=== PATIENT | male | born 1930 | race Caucasian/White ===

== ENCOUNTER 2017-02-23 19:55 | Inpatient (IN) | payer OTHER ==
[~2017-02-23] VITALS: Ht 177.8 cm; Wt 85.9 kg
[~2017-02-23 19:55] MED LIST: ASPEC81 PO; ATOR-54 PO; CALC200T PO; CITA40TA4 PO; DILT120C51 PO; DOCU-94 PO; DRGTP25 TD; ERTA1INJ IV; FINA5TAB PO; FRRS300 PO; FRS/40 PO; LCTX PO; MAGN400T5 PO; NUTR-7 PO; OMEP40CA41 PO; POTA20TA13 PO; WARF7.5T PO
[2017-02-23 23:18] VITALS: BP 115/61; PULSE 73; TEMP 37.2; O2SAT 91; Ht 177.8 cm; Wt 85.9 kg
[2017-02-23] MEDS ORDERED: MAGNESIUM HYDROXIDE SUSP 30 ML UDC PO PRN (23:45)
[2017-02-23] MEDS ORDERED: ACETAMINOPHEN 325 MG TAB PO PRN (23:45)
[2017-02-23] MEDS ORDERED: NITROGLYCERIN 0.4 MG SL PER TAB CHARGE SL PRN (23:45)
[2017-02-23] MEDS ORDERED: ALUMINUM/MAGNESIUM/SIMETH (MAALOX MAX) 30 ML UDC PO PRN (23:45)
[2017-02-23] MEDS ORDERED: POLYETHYLENE (MIRALAX) 17 GM PACK PO PRN (23:45)
[2017-02-24] VITALS (10 sets, daily range): BP systolic 115–152; BP diastolic 63–74; PULSE 64–84; TEMP 36.7–37.2; O2SAT 93–98
[2017-02-24 00:17] LABS: BASO % 0.2 %; BASO ABS # 0.01 K/uL (0-0.2); EOS % 1.9 %; EOS ABS # 0.11 K/uL (0-0.5); HEMATOCRIT 28.2 % (42-52); IG# 0.01 K/uL (0.00-0.02); LYMPH % 15.6 %; LYMPH ABS # 0.89 K/uL (1.2-3.4); MEAN CELL VOLUME 86.5 fL (80-100); MEAN CORPUSCULAR HEMOGLOBIN 27.6 pg (25-34); MEAN CORPUSCULAR HGB CONC 31.9 g/dl (32-36); MEAN PLATELET VOLUME 11.1 fL (7.4-10.4); MONO % 8.4 %; MONO ABS # 0.48 K/uL (0.11-0.59); NEUT % 73.7 %; NEUT ABS # 4.19 K/uL (1.4-6.5); PLATELET COUNT 200 K/uL (130-400); RED CELL DISTRIBUTION WIDTH CV 16.7 % (11.5-14.5); RED CELL DISTRIBUTION WIDTH SD 52.6 fL (36.4-46.3); WHITE BLOOD COUNT 5.69 K/uL (4.8-10.8)
[2017-02-24 00:28] LABS: INR 1.9 (0.9-1.1)
[2017-02-24 00:43] LABS: CALCIUM 8.5 mg/dl (8.5-10.1); CREATININE 1.31 mg/dl (0.60-1.40); POTASSIUM 4.1 mmol/L (3.5-5.1)
[2017-02-24] MEDS: SODIUM CHLORIDE 0.9% 1000ML 1,000 ML IV SCH ×2 (00:56→14:16)
[2017-02-24] MEDS: CHECK FENTANYL PATCH PLACEMENT SCH ×3 (00:57→16:08)
--- NOTE | 2017-02-24 02:35 | History and Physical ---
History & Physical Date & Time of Service: Feb 24, 2017 at 02:34 Chief Complaint: Ams, Elevated Inr, Gi Bleed Primary Care Physician: Hakan Gee D.O. History of Present Illness This is an 86 y/o M w/ h/o prostate and bladder ca, htn, afib s/p pacemaker, bph , ckd 3, who presents as a transfer from [facility]. History is somewhat unclear from patient. History obtained from daughter over the phone. She reports that he was recently discharged from [facility] with multi-drug resistant e.coli UTI on IV Ertapenem and sent to [facility] for acute rehab. A few days prior to discharge from the rehab facility, his repeat urine culture grew bacteria (unknown?) again and he was discharged on what she thinks is ciprofloxacin. He also had a fall while there, that was reportedly not evaluated. He complains of left leg pain. She notes that after he got home, he continued to be weak and his speech was slurred. This morning his brother checked on him and he seemed confused. She too visited him later and noted that he was intermittently confused. She reports that her dad is usually very sharp. She took him to [place] where they noted his INR to be 7. He did report melena at [place]. He was given Vitamin K and 1 unit of FFP and transferred to [facility]. Here he reports having dark stools and diarrhea. He recently underwent cystoscopy with fulguration of 2 small areas concerning for recurrent bladder cancer on 01/21/[address] Daniel Muhammad. Past Medical/Surgical History Medical Problems: (1) Atrial fibrillation Status: Chronic (2) CAD (coronary artery disease) Status: Chronic (3) Chronic back pain Status: Chronic (4) Compression fracture of spine Status: Chronic (5) History of bladder cancer Status: Chronic (6) History of prostate cancer Status: Chronic (7) Hypertension Status: Chronic Surgical Problems: (1) History of hip replacement, total Status: Chronic (2) Status post coronary artery stent placement Status: Chronic (3) Stented coronary artery Status: Chronic Family History Cancer Social History Smoking Status: Former Smoker Drug Use: none Marital Status: Occupational Status: retired Immunizations History of Influenza Vaccine: Yes Influenza Vaccine Date: Jan 11, 2015 History of Tetanus Vaccine?: Unknown History of Pneumococcal: Unknown History of Hepatitis B Vaccine: Unknown Multi-Drug Resistant Organisms History of MDRO: No Allergies Coded Allergies: No Known Allergies (Verified , 04/21/02) Home Medications Scheduled Aspirin (Aspirin EC Low Dose), 81 MG PO DAILY Atorvastatin (Lipitor), 20 MG PO HS Calcium Carbonate-Vitamin D (Oscal 500/200 D-3), 1 TAB PO BID Citalopram (Citalopram Hydrobromide), 40 MG PO DAILY Diltiazem Hcl Coated Beads (Cardizem Cd), 120 MG PO DAILY Docusate Sodium (Colace), 100 MG PO HS Ertapenem Sodium (Invanz), 1 GM IV DAILY Fentanyl (Fentanyl), 25 MCG TD Q3D Ferrous Sulfate (Ferrous Sulfate), 325 MG PO DAILY Finasteride (Proscar), 5 MG PO DAILY Furosemide (Lasix), 40 MG PO QAM Lactobacillus Acidophilus (Lactinex), 3 TAB PO TID Magnesium Oxide (Mag-Ox), 400 MG PO BID Nutritional Supplements (Boost), 1 CAN PO HS Omeprazole (Prilosec), 40 MG PO DAILY Potassium Chloride Microencaps (Potassium Chloride Er), 20 MEQ PO DAILY Warfarin Sodium (Coumadin), 7.5 MG PO 4XWK Warfarin Sodium (Coumadin), 3.75 MG PO 3XWK Review of Systems Constitutional: No fever, No chills Respiratory: No cough, No shortness of breath, No dyspnea on exertion Cardiovascular: No chest pain Abdomen: + diarrhea, + GI bleeding, No pain, No nausea Genitourinary - Male: + urinary frequency, + urinary hesitancy, + urinary retention Physical Exam Vital Signs Date Time Temp Pulse Resp B/P (MAP) Pulse Ox O2 Delivery O2 Flow Rate FiO2 02/23/17 23:59 Nasal Cannula 4.0 02/23/17 23:18 37.2 73 18 115/61 91 Nasal Cannula 4.0 General Appearance: no apparent distress Eyes: PERRL, EOMI ENT: hearing grossly normal Neck: supple, no adenopathy Respiratory/Chest: lungs clear, normal breath sounds, no respiratory distress, no accessory muscle use Cardiovascular: regular rate, rhythm, no edema Abdomen/GI: normal bowel sounds, non tender, soft Extremities/Musculoskelatal: no calf tenderness, no pedal edema Neurologic/Psych: alert, normal mood/affect, oriented x 3 Diagnostics Laboratory Results Results Past 24 Hours Test 02/24/17 00:05 Range/Units White Blood Count 5.69 4.8-10.8 K/uL Red Blood Count 3.26 4.7-6.1 M/uL Hemoglobin 9.0 14.0-18.0 g/dL Hematocrit 28.2 42-52 % Mean Corpuscular Volume 86.5 80-100 fL Mean Corpuscular Hemoglobin 27.6 25-34 pg Mean Corpuscular Hemoglobin Concent 31.9 32-36 g/dl Platelet Count 200 130-400 K/uL Mean Platelet Volume 11.1 7.4-10.4 fL Neutrophils (%) (Auto) 73.7 % Lymphocytes (%) (Auto) 15.6 % Monocytes (%) (Auto) 8.4 % Eosinophils (%) (Auto) 1.9 % Basophils (%) (Auto) 0.2 % Neutrophils # (Auto) 4.19 1.4-6.5 K/uL Lymphocytes # (Auto) 0.89 1.2-3.4 K/uL Monocytes # (Auto) 0.48 0.11-0.59 K/uL Eosinophils # (Auto) 0.11 0-0.5 K/uL Basophils # (Auto) 0.01 0-0.2 K/uL RDW Standard Deviation 52.6 36.4-46.3 fL RDW Coefficient of Variation 16.7 11.5-14.5 % Immature Granulocyte % (Auto) 0.2 % Immature Granulocyte # (Auto) 0.01 0.00-0.02 K/uL Prothrombin Time 19.7 9.0-12.0 SECONDS Prothromb Time International Ratio 1.9 0.9-1.1 Sodium Level 139 136-145 mmol/L Potassium Level 4.1 3.5-5.1 mmol/L Chloride Level 107 98-107 mmol/L Carbon Dioxide Level 29 21-32 mmol/L Anion Gap 3.0 3-11 mmol/L Blood Urea Nitrogen 26 7-18 mg/dl Creatinine 1.31 0.60-1.40 mg/dl Est Creatinine Clear Calc Drug Dose 40.2 ml/min Estimated GFR () 55.9 Estimated GFR (Non- 48.3 BUN/Creatinine Ratio 19.6 10-20 Random Glucose 93 70-99 mg/dl Calcium Level 8.5 8.5-10.1 mg/dl Impression Assessment and Plan Altered Mental status 2/2 pain? vs. CVA? vs. infection? Head CT at [place] r/o acute hemorrhage or infarct Unable to do MRI due to pacemaker. u/a, urine culture pending, consider ID consult if persistent/recurrent UTI oriented x 3 Supratherapeutic INR/GI bleed Given Vitamin K and FFP at [place] INR currently 1.9 Hemoccult GI Consult NPO Serial H/H- hgb stable from [place] protonix 40 mg BID Hold Coumadin Left Leg pain 2/2 Fall Left hip Xray done at [place] without fracture Will do a Femur Xray pain control DVT less likely given initial INR of 7 CKD stage 3 - at baseline h/o prostate ca/bladder ca- noted consider urology consult- per [place], patient was transferred for Urology Bph - continue finasteride Cad/HTN aspirin, lipitor, lasix Afib s/p Pacemaker - NSR Chronic Pain Fentanyl patch Citalopram Dvt proph: chemical means contraindicated Code: DNR Resident Physician Supervision Note: I was present with Dr. Naylor during the history and exam. I discussed the case with the resident and agree with the findings and plan as documented in the note. 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 Y/N: Yes Risk Level: Moderate Given or contraindicated: Treatment not indicated
[2017-02-24 06:47] LABS: HEMATOCRIT 27.6 % (42-52); HEMOGLOBIN 8.7 g/dL (14.0-18.0)
--- NOTE | 2017-02-24 07:55 | DIAGNOSTIC IMAGING REPORT ---
L FEMUR 2 VIEWS ROUTINE CLINICAL HISTORY: 86 years-old Male presenting with fall, left leg pain. TECHNIQUE: Frontal and lateral views of the left femur were obtained. COMPARISON: Correlation made to CT of the abdomen and pelvis from 02/02/2017. FINDINGS: The left hip joint is congruent. Knee joint grossly congruent. No gross evidence of a left knee joint effusion. No advanced degenerative change of the left hip. The joint spaces preserved. Visualized portion of the bony pelvis within normal limits. Atherosclerosis noted. Prominent enthesophyte at the insertion of the quadriceps tendon. Osteopenia suspected. IMPRESSION: No acute osseous injury of the left femur allowing for osteopenia. Electronically signed by: Chapin Deleon M.D. 02/24/2017 7:53 AM Dictated Date/Time: 02/24/2017 7:52 AM
[2017-02-24] MEDS: DILTIAZEM HCL 120 MG CAPCR PO SCH (08:21)
[2017-02-24] MEDS: PANTOprazole INJ 40 MG in SYRINGE 0 ML IV SCH ×2 (08:21→19:57)
[2017-02-24] MEDS: FUROSEMIDE 40 MG TAB PO SCH (08:22)
[2017-02-24] MEDS: POTASSIUM CHLORIDE 20 MEQ TABCR PO SCH (08:22)
[2017-02-24] MEDS: FINASTERIDE 5 MG TAB PO SCH (08:23)
[2017-02-24] MEDS: CITALOPRAM 40 MG TAB PO SCH (08:23)
[2017-02-24] MEDS: MAGNESIUM OXIDE 400 MG TAB PO SCH ×2 (08:23→19:59)
[2017-02-24] MEDS: LACTOBACILLUS ACIDOPHILUS (FLORANEX) TAB PO SCH ×3 (08:23→20:00)
[2017-02-24] MEDS: FENTANYL PATCH REMOVE & WASTE SCH (08:25)
[2017-02-24] MEDS: FENTANYL 25 MCG/HR TDSY TD SCH (08:26)
--- NOTE | 2017-02-24 10:10 | Clinical Documentation Query ---
CLINICAL DOCUMENTATION QUERY 86 y/o M with weakness, slurred speech, & melena. Patient is noted to have Melena, INR of 7.0, and H/H of 8.7/27.6. In your clinical opinion is this patient being managed for: ( ) GI bleed due to Warfarin therapy treated with reversal of INR and GI consult. ( ) Not Agree ( ) Other explanation of clinical findings (Please Explain) ( ) Unable to determine (Please Define) ( ) Need to Discuss The medical record reflects the following clinical findings, treatment, and risk factors. Clinical Indicators: Reported INR of 7.0, melena, Hgb 8.7, Hct 27.6 Treatment: Vitamin K and 1 unit FFP, telemetry, daily CBC, PT/INR, GI consult, IVF's, Risk Factors: Warfarin therapy. Please clarify and document your clinical opinion in the progress notes and discharge summary. Terms such as "probable", "suspected", "likely", "questionable", "possible", or "still to be ruled out" are acceptable. IF IN AGREEMENT, YOU MUST DOCUMENT ABOVE DIAGNOSTIC STATEMENT IN DAILY PROGRESS NOTES AND DISCHARGE SUMMARY. This document is not part of the patient's record. Thank You, Alireza Gordillo, SEA [phone]
[2017-02-24 12:04] LABS: HEMATOCRIT 28.9 % (42-52); HEMOGLOBIN 9.1 g/dL (14.0-18.0)
--- NOTE | 2017-02-24 12:15 | Clinical Documentation Query ---
CLINICAL DOCUMENTATION QUERY 86 y/o M with weakness, slurred speech, & melena. Patient is noted to have Melena, INR of 7.0, and H/H of 8.7/27.6. In your clinical opinion is this patient being managed for: (x ) GI bleed due to Warfarin therapy treated with reversal of INR and GI consult. ( ) Not Agree ( ) Other explanation of clinical findings (Please Explain) ( ) Unable to determine (Please Define) ( ) Need to Discuss The medical record reflects the following clinical findings, treatment, and risk factors. Clinical Indicators: Reported INR of 7.0, melena, Hgb 8.7, Hct 27.6 Treatment: Vitamin K and 1 unit FFP, telemetry, daily CBC, PT/INR, GI consult, IVF's, Risk Factors: Warfarin therapy. Please clarify and document your clinical opinion in the progress notes and discharge summary. Terms such as "probable", "suspected", "likely", "questionable", "possible", or "still to be ruled out" are acceptable. IF IN AGREEMENT, YOU MUST DOCUMENT ABOVE DIAGNOSTIC STATEMENT IN DAILY PROGRESS NOTES AND DISCHARGE SUMMARY. This document is not part of the patient's record. Thank You, Alireza Gordillo, SEA [phone]
--- NOTE | 2017-02-24 14:47 | Family Medicine Progress Note ---
Progress Note Date of Service Feb 24, 2017. Subjective Pt evaluation today including: conversation w/ patient, conversation w/ family , physical exam, chart review, lab review, review of inpatient medication list Pain: Left leg pain reported PO Intake: NPO Voiding: no voiding problems Mr. Rodriguez reports he feels well today. He denies chest pain, SOB, abdominal pain, nausea or vomiting. He does report pain in his left leg, but states that he has full mobility with his leg. His family members state that he is not as sharp as he normally is and they are concerned. Constitutional: No fever, No chills Respiratory: No cough, No sputum, No wheezing, No shortness of breath Cardiovascular: No chest pain, No orthopnea, No PND, No edema Abdomen: No pain, No nausea, No vomiting, No diarrhea Musculoskeletal: + problem reported (left leg pain) All Other Systems: Reviewed and Negative Medications Current Inpatient Medications Medications (Trade) Dose Ordered Sig/Shin Route Start Time Stop Time Status Last Admin Dose Admin Sodium Chloride 1,000 ml @ 75 mls/hr [id number] IV 02/24/17 00:15 03/26/17 00:14 02/24/17 14:16 75 MLS/HR Acetaminophen (Tylenol Tab) 650 mg Q4H PRN PO 02/23/17 23:45 03/25/17 23:44 Al Hydrox/Mg Hydrox/Simethicone (Maalox Max Susp) 15 ml Q4H PRN PO 02/23/17 23:45 03/25/17 23:44 Magnesium Hydroxide (Milk Of Magnesia Susp) 30 ml Q12H PRN PO 02/23/17 23:45 03/25/17 23:44 Ondansetron HCl (Zofran Inj) 4 mg Q6H PRN IV 02/23/17 23:45 03/25/17 23:44 Nitroglycerin (Nitrostat Tab) 0.4 mg UD PRN SL 02/23/17 23:45 03/25/17 23:44 Polyethylene (Miralax Powder Packet) 17 gm DAILY PRN PO 02/23/17 23:45 03/25/17 23:44 Pantoprazole Sodium 40 mg/ Syringe 10 ml @ 5 mls/min DAILY@ IV 02/24/17 09:00 03/26/17 08:59 02/24/17 08:21 5 MLS/MIN Atorvastatin Calcium (Lipitor Tab) 20 mg HS PO 02/24/17 21:00 03/26/17 20:59 Citalopram Hydrobromide (celeXA TAB) 40 mg DAILY PO 02/24/17 09:00 03/26/17 08:59 02/24/17 08:23 40 MG Diltiazem HCl (Cardizem Cd Cap) 120 mg DAILY PO 02/24/17 09:00 03/26/17 08:59 02/24/17 08:21 120 MG Docusate Sodium (coLACE CAP) 100 mg HS PO 02/24/17 21:00 03/26/17 20:59 Fentanyl (Duragesic Patch) 25 mcg Q3D@0900 TD 02/24/17 09:00 03/10/17 08:59 02/24/17 08:26 25 MCG Finasteride (Proscar Tab) 5 mg DAILY PO 02/24/17 09:00 03/26/17 08:59 02/24/17 08:23 5 MG Furosemide (Lasix Tab) 40 mg QAM PO 02/24/17 09:00 03/26/17 08:59 02/24/17 08:22 40 MG Lactobacillus Acidophilus (Floranex Tab) 3 tab TID PO 02/24/17 09:00 03/26/17 08:59 02/24/17 14:16 3 TAB Magnesium Oxide (Mag-Ox Tab) 400 mg BID PO 02/24/17 09:00 03/26/17 08:59 02/24/17 08:23 400 MG Potassium Chloride (Klor-Con Tab) 20 meq DAILY PO 02/24/17 09:00 03/26/17 08:59 02/24/17 08:22 20 MEQ Miscellaneous (Fentanyl Patch Remove & Waste) 1 ea Q3D@0859 N/A 02/24/17 08:59 03/26/17 08:58 02/24/17 08:25 1 EA Miscellaneous Information (Check Fentanyl Patch Placement) 1 ea QS N/A 02/24/17 00:45 03/26/17 00:44 02/24/17 08:21 1 EA Enteral Nutritional Formula (Boost) 1 can HS PO 02/24/17 21:00 03/26/17 20:59 Objective Vital Signs Date Time Temp Pulse Resp B/P (MAP) Pulse Ox O2 Delivery O2 Flow Rate FiO2 02/24/17 12:00 95 Nasal Cannula 2.0 02/24/17 11:10 37.2 84 16 122/65 (84) 97 02/24/17 08:08 37.0 74 18 144/70 (94) 98 02/24/17 08:00 96 Nasal Cannula 4.0 02/24/17 04:00 Nasal Cannula 4.0 02/24/17 03:10 36.7 68 18 115/63 (80) 96 Nasal Cannula 3.0 02/23/17 23:59 Nasal Cannula 4.0 02/23/17 23:18 37.2 73 18 115/61 91 Nasal Cannula 4.0 Physical Exam General Appearance: WD/WN, no apparent distress Respiratory/Chest: chest non-tender, lungs clear, normal breath sounds, no respiratory distress, no accessory muscle use Cardiovascular: regular rate, rhythm, no edema, no gallop, no JVD, no murmur Abdomen: normal bowel sounds, non tender, soft, no organomegaly, no pulsatile mass Laboratory Results Last 24 Hours Test 02/24/17 00:05 02/24/17 05:29 02/24/17 06:11 02/24/17 11:51 White Blood Count 5.69 K/uL Red Blood Count 3.26 M/uL Hemoglobin 9.0 g/dL 8.7 g/dL 9.1 g/dL Hematocrit 28.2 % 27.6 % 28.9 % Mean Corpuscular Volume 86.5 fL Mean Corpuscular Hemoglobin 27.6 pg Mean Corpuscular Hemoglobin Concent 31.9 g/dl Platelet Count 200 K/uL Mean Platelet Volume 11.1 fL Neutrophils (%) (Auto) 73.7 % Lymphocytes (%) (Auto) 15.6 % Monocytes (%) (Auto) 8.4 % Eosinophils (%) (Auto) 1.9 % Basophils (%) (Auto) 0.2 % Neutrophils # (Auto) 4.19 K/uL Lymphocytes # (Auto) 0.89 K/uL Monocytes # (Auto) 0.48 K/uL Eosinophils # (Auto) 0.11 K/uL Basophils # (Auto) 0.01 K/uL RDW Standard Deviation 52.6 fL RDW Coefficient of Variation 16.7 % Immature Granulocyte % (Auto) 0.2 % Immature Granulocyte # (Auto) 0.01 K/uL Prothrombin Time 19.7 SECONDS Prothromb Time International Ratio 1.9 Sodium Level 139 mmol/L Potassium Level 4.1 mmol/L Chloride Level 107 mmol/L Carbon Dioxide Level 29 mmol/L Anion Gap 3.0 mmol/L Blood Urea Nitrogen 26 mg/dl Creatinine 1.31 mg/dl Est Creatinine Clear Calc Drug Dose 40.2 ml/min Estimated GFR () 55.9 Estimated GFR (Non- 48.3 BUN/Creatinine Ratio 19.6 Random Glucose 93 mg/dl Calcium Level 8.5 mg/dl Urine Color YELLOW Urine Appearance CLEAR Urine pH 5.0 Urine Specific [place] 1.022 Urine Protein NEG Urine Glucose (UA) NEG Urine Ketones NEG Urine Occult Blood TRACE Urine Nitrite NEG Urine Bilirubin NEG Urine Urobilinogen NEG Urine Leukocyte Esterase MODERATE Urine WBC (Auto) 10-30 /hpf Urine RBC (Auto) 0-4 /hpf Urine Hyaline Casts (Auto) 1-5 /lpf Urine Epithelial Cells (Auto) 10-20 /lpf Urine Bacteria (Auto) NEG Assessment and Plan Mr. Rodriguez is an 86 year old male with a history of bladder and prostate cancer , atrial fibrillation, CAD s/p stent placement, and hypertension who presented to [facility] as a transfer from [place] with weakness, AMS, INR of 7 and melena. Altered Mental Status secondary to pain vs. infection - Head CT at [place] ruled out acute hemorrhage or infarct - Unable to do MRI due to pacemaker. - urinalysis positive, awaiting urine culture results Supratherapeutic INR/GI bleed - Given Vitamin K and FFP at [place] as his INR was 7 there - possible interaction between warfarin and cipro - INR currently 1.9 - GI consulted - Hgb currently stable at 9.1 - continue protonix 40 mg BID - Hold Coumadin Left Leg pain secondary to Fall - Left hip Xray done at [place] without fracture - Femur xray negative - pain control, apply ice to area New Oxygen Demand - patient not on oxygen at home - on 2L of oxygen via nasal cannula here - CXR to rule out new infection CKD stage 3 - at baseline - creatinine 1.31 H/o prostate ca/bladder ca - stable BPH - continue finasteride Cad/HTN - aspirin, lipitor, lasix Afib s/p Pacemaker - NSR - hold warfarin Chronic Pain - Fentanyl patch - Citalopram Code: DNR DVT Prophylaxis: chemical means contraindicated Disposition: remains on telemetry Resident Physician Supervision Note: I interviewed and examined the patient. Discussed with Dr. Laina Cabezas and agree with findings and plan as documented in the note. Any exceptions or clarifications are listed here: None this pt is doing well accompanied by family at the bedside, pt was transferred in with coagulopathy secondary to coumadin( which he takes for afib) possibly worsened by use of antibiotics. he has only modest acute blood loss anemia. vitals are stable car is regular] abd is soft and non tender Coumadin coagulopathy reversed with vitamin K, acute blood loss anemia. gi bleed due to warfarin therapy with reversal of INR and IG consult. will follow GI evaluation and continue to hold coumadin. Documented By: Ulisses [place] Resident Tracking Resident Involvement: Resident Care Provided Care Provided: Adult Hospital Medicine
[2017-02-24 18:27] LABS: HEMATOCRIT 29.6 % (42-52); HEMOGLOBIN 9.2 g/dL (14.0-18.0)
--- NOTE | 2017-02-24 19:18 | DIAGNOSTIC IMAGING REPORT ---
CHEST ONE VIEW PORTABLE CLINICAL HISTORY: new oxygen demand, rule out infection COMPARISON STUDY: Chest radiograph February 04, 2017. FINDINGS: A dual lead left subclavian pacemaker is in place. Lung volumes are diminished. No pneumothorax or pleural effusion is identified. Cardiomegaly is unchanged. No consolidation is identified. Mild bibasilar opacities favor atelectasis. IMPRESSION: 1. Mild bibasilar opacities which favor atelectasis. 2. Stable cardiomegaly without evidence for overt pulmonary edema. Electronically signed by: Enyd Garcia M.D. 02/24/2017 7:17 PM Dictated Date/Time: 02/24/2017 7:15 PM
[2017-02-24] MEDS: DOCUSATE SODIUM 100 MG CAP PO SCH (19:58)
[2017-02-24] MEDS: ATORVASTATIN 20 MG TAB PO SCH (19:59)
[2017-02-24] MEDS: BOOST VANILLA PO SCH (19:59)
[2017-02-24] MEDS ORDERED: BOOST VANILLA PO SCH (21:00)
--- NOTE | 2017-02-24 22:05 | GASTROINTESTINAL CONSULTATION ---
DATE OF CONSULTATION: 02/24/2017 CHIEF COMPLAINT: Anemia, melena, supratherapeutic INR. HISTORY OF PRESENT ILLNESS: Mr. Angulo is an 86-year-old male transferred from [facility]. The patient was recently discharged from [facility] with multidrug resistant E. coli and UTI on IV ertapenem. He also had repeat urine cultures that grew out unknown bacteria and was possibly placed on ciprofloxacin. The patient has left leg pain from a fall. There were issues of slurred speech. On the day of admission yesterday, the patient seemed confused and what represented a change in the patient's mental status. In [facility], the INR was markedly elevated at 7. The patient recently underwent cystoscopy with fulguration of lesions with recurrent bladder cancer and the patient also has a history of prostate cancer for which he reportedly received radiation therapy. At [place], he was given vitamin K and FFP and transferred to [facility]. The patient also has dark stools and diarrhea. Currently, the patient is awake, alert and oriented x3. He reported that he has had a colonoscopy in the past, although that may have been several years ago but had an upper endoscopy about a year or so ago in [place]. PAST MEDICAL HISTORY: Includes atrial fibrillation, coronary artery disease, chronic back pain, compression fractures, bladder cancer, prostate cancer, hypertension. PAST SURGICAL HISTORY: The patient had hip replacement and coronary artery stent placement. FAMILY HISTORY: Significant for cancer. SOCIAL HISTORY: The patient smoked in the past but no longer does so. He is retired, . Does not use alcoholic beverages. ALLERGIES: He has no known drug allergies. HOME MEDICATIONS: Include aspirin, atorvastatin, calcium, citalopram, diltiazem, docusate, ertapenem, fentanyl, ferrous sulfate, finasteride, Lasix, Lactinex, magnesium oxide, omeprazole, warfarin. REVIEW OF SYSTEMS: Otherwise noncontributory based on 13-point exam except for mentioned above. The patient reported that his stools were dark although not specifically melena (tarry, sticky stools). There was no bright red blood per rectum. The patient had no abdominal pain, nausea, vomiting, hematemesis or coffee-ground emesis and has not been using any NSAIDs to his understanding. PHYSICAL EXAMINATION: GENERAL: The patient is awake, alert and oriented x3, resting comfortably in bed. VITAL SIGNS: Currently show blood pressure 152/74, respirations 16, heart rate 70, 98% on room air, temperature 36.7. HEART: Normal S1, S2, irregular rhythm. LUNGS: Overall clear to auscultation without wheezes or rhonchi. HEENT: The patient's sclerae are anicteric, conjunctivae moist. No cervical or supraclavicular adenopathy. I did not appreciate thyromegaly. EXTREMITIES: Show overall normal range of motion, although the patient reports discomfort in his left leg without weightbearing. Otherwise without clubbing, cyanosis or edema. ABDOMEN: Soft, flat, nontender, nondistended with positive bowel sounds. No rebound or guarding. I do not appreciate abdominal bruits or masses. No evidence of ascites or shifting dullness. There is no rebound or guarding. RECTAL: Deferred. LABORATORY STUDIES: On admission, white count 5.6. Hemoglobin 9 at midnight; at 1800 hours this evening, it is 9.2. The patient received 2 units of packed red blood cells today. His INR was 1.9. Serum chemistry, BUN and creatinine were 26 and 1.3, potassium 4.1, calcium 8.5. Urinalysis showed moderate leukocyte esterase, trace occult blood, 10-30 white blood cells, although they were epithelial cells. INR was 1.9. Imaging showed stable cardiomegaly without pulmonary edema and atelectasis. IMPRESSION AND PLAN: The patient with anemia, reports of dark appearing stools with a supratherapeutic INR, without abdominal pain, knowledge of taking NSAIDs or prior peptic ulcer disease. BUN was slightly elevated on admission, although it is unclear if this would justify his significant dark stool and his hemoglobin. Sources may reflect upper small-bowel or very proximal colon. I made the following recommendations. Given that there have been no reports of melena or bright red blood per rectum and his hemoglobin is stable and INR is near normal, I believe it is reasonable for the patient to have clear or full liquids up through midnight but n.p.o. except for meds after the morning with anticipation of EGD tomorrow in the afternoon. If this is unrevealing, then colonoscopy is prudent and we will order a bowel prep for Thursday night for colonoscopy on . If there is evidence of bleeding and these are unrevealing, then a tagged red cell scan depending on the rate of bleeding is reasonable. Ultimately, as an outpatient, a video capsule to assess for small-bowel sources may be needed. Would follow hemoglobin daily and continue PPI therapy. The patient has no reported history of liver disease, and therefore, portal hypertensive bleeding is less likely. Further recommendations to follow. Thank you for allowing me to participate in this pleasant gentleman's care.
[2017-02-25] VITALS (13 sets, daily range): BP systolic 121–167; BP diastolic 53–76; PULSE 63–75; TEMP 36.4–37.2; O2SAT 93–99
[2017-02-25] MEDS: CHECK FENTANYL PATCH PLACEMENT SCH ×3 (00:14→16:59)
[2017-02-25] MEDS: SODIUM CHLORIDE 0.9% 1000ML 1,000 ML IV SCH ×2 (03:24→16:59)
[2017-02-25 06:09] LABS: HEMATOCRIT 28.6 % (42-52); HEMOGLOBIN 8.9 g/dL (14.0-18.0); MEAN CELL VOLUME 88.3 fL (80-100); MEAN CORPUSCULAR HEMOGLOBIN 27.5 pg (25-34); MEAN CORPUSCULAR HGB CONC 31.1 g/dl (32-36); MEAN PLATELET VOLUME 10.9 fL (7.4-10.4); PLATELET COUNT 177 K/uL (130-400); RED CELL DISTRIBUTION WIDTH CV 16.9 % (11.5-14.5); RED CELL DISTRIBUTION WIDTH SD 54.3 fL (36.4-46.3)
[2017-02-25 07:41] LABS: INR 1.3 (0.9-1.1)
--- NOTE | 2017-02-25 08:32 | Family Medicine Progress Note ---
Progress Note Date of Service Feb 25, 2017. Subjective Pt evaluation today including: conversation w/ patient, physical exam, chart review, lab review, review of inpatient medication list Pain: Left leg pain reported PO Intake: NPO Voiding: no voiding problems Mr. Rodriguez reports he feels ok today. He denies chest pain, SOB, n/v, abdominal pain. He states he has a slight cough due to a dry mouth. He states his left leg is still sore, but has not worsened or changed from yesterday. Constitutional: No fever, No chills Respiratory: + cough, No sputum, No wheezing, No shortness of breath Cardiovascular: No chest pain Abdomen: No pain, No nausea, No vomiting Musculoskeletal: + muscle pain (left ITB) All Other Systems: Reviewed and Negative Medications Current Inpatient Medications Medications (Trade) Dose Ordered Sig/Shin Route Start Time Stop Time Status Last Admin Dose Admin Sodium Chloride 1,000 ml @ 75 mls/hr [id number] IV 02/24/17 00:15 03/26/17 00:14 02/25/17 03:24 75 MLS/HR Acetaminophen (Tylenol Tab) 650 mg Q4H PRN PO 02/23/17 23:45 03/25/17 23:44 02/24/17 21:13 650 MG Al Hydrox/Mg Hydrox/Simethicone (Maalox Max Susp) 15 ml Q4H PRN PO 02/23/17 23:45 03/25/17 23:44 Magnesium Hydroxide (Milk Of Magnesia Susp) 30 ml Q12H PRN PO 02/23/17 23:45 03/25/17 23:44 Ondansetron HCl (Zofran Inj) 4 mg Q6H PRN IV 02/23/17 23:45 03/25/17 23:44 Nitroglycerin (Nitrostat Tab) 0.4 mg UD PRN SL 02/23/17 23:45 03/25/17 23:44 Polyethylene (Miralax Powder Packet) 17 gm DAILY PRN PO 02/23/17 23:45 03/25/17 23:44 Pantoprazole Sodium 40 mg/ Syringe 10 ml @ 5 mls/min DAILY@09,21 IV 02/24/17 09:00 03/26/17 08:59 02/24/17 19:57 5 MLS/MIN Atorvastatin Calcium (Lipitor Tab) 20 mg HS PO 02/24/17 21:00 03/26/17 20:59 02/24/17 19:59 20 MG Citalopram Hydrobromide (celeXA TAB) 40 mg DAILY PO 02/24/17 09:00 03/26/17 08:59 02/24/17 08:23 40 MG Diltiazem HCl (Cardizem Cd Cap) 120 mg DAILY PO 02/24/17 09:00 03/26/17 08:59 02/24/17 08:21 120 MG Docusate Sodium (coLACE CAP) 100 mg HS PO 02/24/17 21:00 03/26/17 20:59 Fentanyl (Duragesic Patch) 25 mcg Q3D@0900 TD 02/24/17 09:00 03/10/17 08:59 02/24/17 08:26 25 MCG Finasteride (Proscar Tab) 5 mg DAILY PO 02/24/17 09:00 03/26/17 08:59 02/24/17 08:23 5 MG Furosemide (Lasix Tab) 40 mg QAM PO 02/24/17 09:00 03/26/17 08:59 02/24/17 08:22 40 MG Lactobacillus Acidophilus (Floranex Tab) 3 tab TID PO 02/24/17 09:00 03/26/17 08:59 02/24/17 20:00 3 TAB Magnesium Oxide (Mag-Ox Tab) 400 mg BID PO 02/24/17 09:00 03/26/17 08:59 02/24/17 19:59 400 MG Potassium Chloride (Klor-Con Tab) 20 meq DAILY PO 02/24/17 09:00 03/26/17 08:59 02/24/17 08:22 20 MEQ Miscellaneous (Fentanyl Patch Remove & Waste) 1 ea Q3D@0859 N/A 02/24/17 08:59 03/26/17 08:58 02/24/17 08:25 1 EA Miscellaneous Information (Check Fentanyl Patch Placement) 1 ea QS N/A 02/24/17 00:45 03/26/17 00:44 02/25/17 00:14 1 EA Enteral Nutritional Formula (Boost) 1 can HS PO 02/24/17 21:00 03/26/17 20:59 Objective Vital Signs Date Time Temp Pulse Resp B/P (MAP) Pulse Ox O2 Delivery O2 Flow Rate FiO2 02/25/17 07:15 36.4 67 19 137/68 (91) 94 Nasal Cannula 2.0 02/25/17 04:00 96 Nasal Cannula 2.0 02/25/17 02:54 36.7 65 20 128/76 (93) 96 Nasal Cannula 2.0 02/25/17 00:01 96 Nasal Cannula 2.0 02/24/17 22:45 36.8 64 20 120/64 (82) 96 Room Air 2.0 02/24/17 20:10 36.7 70 16 152/74 (100) 98 Room Air 02/24/17 20:00 95 Nasal Cannula 2.0 02/24/17 16:00 95 Nasal Cannula 2.0 02/24/17 15:29 36.7 71 16 129/65 (86) 93 Nasal Cannula 2.0 02/24/17 12:00 95 Nasal Cannula 2.0 02/24/17 11:10 37.2 84 16 122/65 (84) 97 Physical Exam General Appearance: WD/WN, no apparent distress Respiratory/Chest: chest non-tender, lungs clear, normal breath sounds, no respiratory distress, no accessory muscle use Cardiovascular: regular rate, rhythm, no edema, no gallop, no JVD, no murmur Abdomen: normal bowel sounds, non tender, soft, no organomegaly, no pulsatile mass Extremities: + pertinent finding (left iliotibial band tightness and tenderness ) Laboratory Results Last 24 Hours Test 02/24/17 11:51 02/24/17 18:04 02/25/17 05:42 Hemoglobin 9.1 g/dL 9.2 g/dL 8.9 g/dL Hematocrit 28.9 % 29.6 % 28.6 % White Blood Count 5.60 K/uL Red Blood Count 3.24 M/uL Mean Corpuscular Volume 88.3 fL Mean Corpuscular Hemoglobin 27.5 pg Mean Corpuscular Hemoglobin Concent 31.1 g/dl RDW Standard Deviation 54.3 fL RDW Coefficient of Variation 16.9 % Platelet Count 177 K/uL Mean Platelet Volume 10.9 fL Prothrombin Time 13.3 SECONDS Prothromb Time International Ratio 1.3 Assessment and Plan Mr. Rodriguez is an 86 year old male with a history of bladder and prostate cancer , atrial fibrillation, CAD s/p stent placement, and hypertension who presented to [facility] as a transfer from [place] with weakness, AMS, INR of 7 and melena. Altered Mental Status secondary to pain vs. infection - resolved - Head CT at [place] ruled out acute hemorrhage or infarct - Unable to do MRI due to pacemaker. - urine culture negative Supratherapeutic INR/GI bleed - Given Vitamin K and FFP at [place] as his INR was 7 there - possible interaction between warfarin and cipro - INR currently 1.3 - GI consulted, thank you for recommendations - NPO today for EGD, if negative, will do colonoscopy on - EGD showed hiatal hernia, but no source of bleeding - consider red cell scan/video capsule - continue PPI and follow Hb daily - Hgb currently stable at 8.9 - continue protonix 40 mg BID - Hold Coumadin Left Leg pain secondary to Fall - Left hip Xray done at [place] without fracture - Femur xray negative - pain control, apply heat to area 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 - he states he has broken his right hip before - consult orthotics - this could have been the cause of his frequent falls - pt/ot evals in place New Oxygen Demand - patient not on oxygen at home - on 2L of oxygen via nasal cannula here - CXR showed mild atelectasis and stable cardiomegaly - no evidence of infection - will monitor & 2 step on d/c CKD stage 3 - at baseline - creatinine 1.31 H/o prostate ca/bladder ca - stable BPH - continue finasteride Cad/HTN - aspirin, lipitor, lasix Afib s/p Pacemaker - NSR - hold warfarin Chronic Pain - Fentanyl patch - Citalopram Code: DNR DVT Prophylaxis: chemical means contraindicated Disposition: remains on telemetry Resident Physician Supervision Note: I was present with PGY1 Dr. Laina Cabezas during the history and exam. I discussed the case with the resident and agree with the findings and plan as documented in the note. Any exceptions or clarifications are listed here: none. Pt's main complaint is that of left mid thigh pain. No hip pain. Denies dyspnea. Denies abd pain. No BRBPR or melena. Pt states he fell at [place] and states "I'll never go back there." VSS afebrile gen - nad mouth - MM dry neck - no JVD heart - RRR lungs - CTA b/l abd - soft ext - no edema musculo - left hip - passive ROM elicits no pain; left IT band mildly tender to touch; no trochanteric bursal pain; leg-length discrepency of at least 1 inch noted A/P: 1. encephalopathy - resolved. etiology? 2. suspected acute blood loss anemia - GI has seen - EGD and/or colonoscopy planned; holding coumadin. 3. ?UTI - follow urine cx but Doubt such at this time. 4. frequent falls - PT, OT - really needs assisted living at discharge. He is unsafe to live alone due to falls. 5. supratherapeutic INR - resolved. Documented By: Joey Olivier MD Resident Tracking Resident Involvement: Resident Care Provided Care Provided: Adult Hospital Medicine
[2017-02-25] MEDS: PANTOprazole INJ 40 MG in SYRINGE 0 ML IV SCH ×2 (08:44→20:46)
[2017-02-25] MEDS: DILTIAZEM HCL 120 MG CAPCR PO SCH (08:44)
[2017-02-25] MEDS: MAGNESIUM OXIDE 400 MG TAB PO SCH ×2 (08:45→20:47)
[2017-02-25] MEDS: LACTOBACILLUS ACIDOPHILUS (FLORANEX) TAB PO SCH ×3 (08:45→20:46)
[2017-02-25] MEDS: FUROSEMIDE 40 MG TAB PO SCH (08:45)
[2017-02-25] MEDS: CITALOPRAM 40 MG TAB PO SCH (08:45)
[2017-02-25] MEDS: FINASTERIDE 5 MG TAB PO SCH (08:46)
[2017-02-25] MEDS: POTASSIUM CHLORIDE 20 MEQ TABCR PO SCH (08:46)
--- NOTE | 2017-02-25 16:02 | History & Physical Bridge Note ---
H&P Re-Evaluation Bridge Note: I have examined the patient, reviewed the History & Physical and in the interval since the performance of the History & Physical I have noted the following changes of clinical significance: No changes noted
[2017-02-25] MEDS ORDERED: PROPOFOL IV EMULSION 10 MG/ML 20 ML VIAL IV ONE (16:22)
[2017-02-25] MEDS ORDERED: LIDOCAINE HCL 2% 2 ML VIAL (20MG/ML) ONE (16:22)
--- NOTE | 2017-02-25 16:29 | GI REPORT ---
Procedure Date: 02/25/2017 3:54 PM Procedure: Upper GI endoscopy Indications: Iron deficiency anemia secondary to chronic blood loss, Melena Medicines: Propofol per Anesthesia Complications: No immediate complications. Estimated blood loss: None. Estimated Blood Loss: Estimated blood loss: none. Procedure: Pre-Anesthesia Assessment: - Prior to the procedure, a History and Physical was performed, and patient medications and allergies were reviewed. The patient's tolerance of previous anesthesia was also reviewed. The risks and benefits of the procedure and the sedation options and risks were discussed with the patient. All questions were answered, and informed consent was obtained. Prior Anticoagulants: The patient has taken no previous anticoagulant or antiplatelet agents. ASA Grade Assessment: III - A patient with severe systemic disease. After reviewing the risks and benefits, the patient was deemed in satisfactory condition to undergo the procedure. After obtaining informed consent, the endoscope was passed under direct vision. Throughout the procedure, the patient's blood pressure, pulse, and oxygen saturations were monitored continuously. The scope was introduced through the mouth, and advanced to the fourth part of duodenum. The upper GI endoscopy was accomplished without difficulty. The patient tolerated the procedure well. Findings: The examined esophagus was normal. A small hiatus hernia was found. The proximal extent of the gastric folds (end of tubular esophagus) was 37 cm from the incisors. The hiatal narrowing was 40 cm from the incisors. The Z-line was 37 cm from the incisors. Striped mildly erythematous mucosa without bleeding was found in the gastric antrum. The examined duodenum was normal. The cardia and gastric fundus were normal on retroflexion. Retained gastric contents are not identified on this exam. Impression: - Normal esophagus. - Small hiatus hernia. - Erythematous mucosa in the antrum. - Normal examined duodenum. - No specimens collected. Recommendation: - Return patient to [facility] for [facility] care. - Perform a colonoscopy tomorrow. - Upper GI examination does not reveal a source of melena. MD Justin Small MD 02/25/2017 4:29:00 PM This report has been signed electronically. Note Initiated On: 02/25/2017 3:54 PM I attest to the content of the Intraoperative Record and orders documented therein, exceptions below
[2017-02-25] MEDS ORDERED: LAVAGE SOLUTION 4000ML PO SCH (16:30)
--- NOTE | 2017-02-25 16:40 | Anesthesiology Progress Note ---
Anesthesia Post Op Note Date & Time Feb 25, 2017 at 16:40 Vital Signs Pain Intensity: 0 Vital Signs Past 12 Hours Date Time Temp Pulse Resp B/P (MAP) Pulse Ox O2 Delivery O2 Flow Rate FiO2 02/25/17 16:24 72 20 101/48 (65) 95 Room Air 02/25/17 15:13 36.9 74 20 127/58 (81) 95 Nasal Cannula 2 02/25/17 12:00 99 Nasal Cannula 2.0 02/25/17 11:44 36.9 75 20 141/65 (90) 96 Nasal Cannula 1.0 02/25/17 11:27 37.0 74 20 130/56 (80) 93 Nasal Cannula 2.0 02/25/17 08:00 99 Nasal Cannula 2.0 02/25/17 07:15 36.4 67 19 137/68 (91) 94 Nasal Cannula 2.0 Notes Mental Status: alert / awake / arousable, participated in evaluation Pt Amnestic to Procedure: Yes Nausea / Vomiting: adequately controlled Pain: adequately controlled Airway Patency, RR, SpO2: stable & adequate BP & HR: stable & adequate Hydration State: stable & adequate Anesthetic Complications: no major complications apparent
[2017-02-25] MEDS: BOOST VANILLA PO SCH (20:45)
[2017-02-25] MEDS: DOCUSATE SODIUM 100 MG CAP PO SCH (20:46)
[2017-02-25] MEDS: ATORVASTATIN 20 MG TAB PO SCH (20:47)
[2017-02-26] VITALS (9 sets, daily range): BP systolic 114–150; BP diastolic 58–73; PULSE 61–73; TEMP 36.5–37.1; O2SAT 90–97
[2017-02-26] MEDS: ONDANSETRON INJ 2 MG/ML 2 ML VIAL IV PRN (05:06)
[2017-02-26] MEDS: SODIUM CHLORIDE 0.9% 1000ML 1,000 ML IV SCH ×2 (05:53→19:25)
[2017-02-26] MEDS ORDERED: NURSING VERBAL MED ORDER ONE (06:00)
[2017-02-26] MEDS: SOD PHOSPHATE/SOD BIPHOSPHATE ENEMA 132 ML BTL PR SCH ×2 (06:26→08:00)
[2017-02-26 06:52] LABS: HEMATOCRIT 29.1 % (42-52); HEMOGLOBIN 9.1 g/dL (14.0-18.0); MEAN CELL VOLUME 87.4 fL (80-100); MEAN CORPUSCULAR HEMOGLOBIN 27.3 pg (25-34); MEAN CORPUSCULAR HGB CONC 31.3 g/dl (32-36); MEAN PLATELET VOLUME 10.9 fL (7.4-10.4); NUCLEATED RED BLOOD CELL ABS 0.04 K/uL (0-0); PLATELET COUNT 179 K/uL (130-400); RED CELL DISTRIBUTION WIDTH CV 16.6 % (11.5-14.5); RED CELL DISTRIBUTION WIDTH SD 52.9 fL (36.4-46.3); WHITE BLOOD COUNT 5.92 K/uL (4.8-10.8)
[2017-02-26 07:40] LABS: CALCIUM 8.2 mg/dl (8.5-10.1); CREATININE 0.8 mg/dl (0.60-1.40); POTASSIUM 3.9 mmol/L (3.5-5.1)
[2017-02-26] MEDS: FINASTERIDE 5 MG TAB PO SCH (08:00)
[2017-02-26] MEDS: MAGNESIUM OXIDE 400 MG TAB PO SCH ×2 (08:00→20:59)
[2017-02-26] MEDS: PANTOprazole INJ 40 MG in SYRINGE 0 ML IV SCH ×2 (08:00→20:58)
[2017-02-26] MEDS: DILTIAZEM HCL 120 MG CAPCR PO SCH (08:00)
[2017-02-26] MEDS: FUROSEMIDE 40 MG TAB PO SCH (08:00)
[2017-02-26] MEDS: POTASSIUM CHLORIDE 20 MEQ TABCR PO SCH (08:01)
[2017-02-26] MEDS: CITALOPRAM 40 MG TAB PO SCH (08:01)
[2017-02-26] MEDS: LACTOBACILLUS ACIDOPHILUS (FLORANEX) TAB PO SCH ×4 (08:01→20:59)
[2017-02-26] MEDS: CHECK FENTANYL PATCH PLACEMENT SCH ×3 (08:03→17:27)
[2017-02-26] MEDS ORDERED: GLUCOSE 10 TABS/TUBE PO PRN (08:30)
[2017-02-26] MEDS ORDERED: GLUCOSE 40% GEL 15 GM TUBE PO PRN (08:30)
[2017-02-26] MEDS ORDERED: GLUCAGON FOR INJ 1 MG VIAL SQ PRN (08:30)
[2017-02-26] MEDS ORDERED: DEXTROSE 50% 50 ML SYR IV PRN (08:30)
--- NOTE | 2017-02-26 11:05 | Family Medicine Progress Note ---
Progress Note Date of Service Feb 26, 2017. Subjective Pt evaluation today including: conversation w/ patient, conversation w/ family , physical exam, chart review, lab review, review of inpatient medication list Pain: Left hip pain reported PO Intake: NPO for coloscopy Voiding: no voiding problems Mr. Rodriguez reports he feels well today. He states his left hip pain is slightly improved from yesterday. He denies chest pain, SOB, abdominal pain or fever/chills. He states he had an episode of vomiting after drinking the bowel prep last night but that he is no longer nauseous and has not vomited today. Constitutional: No fever, No chills Respiratory: No cough, No sputum, No wheezing Cardiovascular: No chest pain Abdomen: + vomiting, No pain, No nausea All Other Systems: Reviewed and Negative Medications Current Inpatient Medications Medications (Trade) Dose Ordered Sig/Shin Route Start Time Stop Time Status Last Admin Dose Admin Sodium Chloride 1,000 ml @ 75 mls/hr [id number] IV 02/24/17 00:15 03/26/17 00:14 02/26/17 05:53 75 MLS/HR Acetaminophen (Tylenol Tab) 650 mg Q4H PRN PO 02/23/17 23:45 03/25/17 23:44 02/24/17 21:13 650 MG Al Hydrox/Mg Hydrox/Simethicone (Maalox Max Susp) 15 ml Q4H PRN PO 02/23/17 23:45 03/25/17 23:44 Magnesium Hydroxide (Milk Of Magnesia Susp) 30 ml Q12H PRN PO 02/23/17 23:45 03/25/17 23:44 Ondansetron HCl (Zofran Inj) 4 mg Q6H PRN IV 02/23/17 23:45 03/25/17 23:44 02/26/17 05:06 4 MG Nitroglycerin (Nitrostat Tab) 0.4 mg UD PRN SL 02/23/17 23:45 03/25/17 23:44 Polyethylene (Miralax Powder Packet) 17 gm DAILY PRN PO 02/23/17 23:45 03/25/17 23:44 Pantoprazole Sodium 40 mg/ Syringe 10 ml @ 5 mls/min DAILY@ IV 02/24/17 09:00 03/26/17 08:59 02/26/17 08:00 5 MLS/MIN Atorvastatin Calcium (Lipitor Tab) 20 mg HS PO 02/24/17 21:00 03/26/17 20:59 02/25/17 20:47 20 MG Citalopram Hydrobromide (celeXA TAB) 40 mg DAILY PO 02/24/17 09:00 03/26/17 08:59 02/26/17 08:01 40 MG Diltiazem HCl (Cardizem Cd Cap) 120 mg DAILY PO 02/24/17 09:00 03/26/17 08:59 02/26/17 08:00 120 MG Docusate Sodium (coLACE CAP) 100 mg HS PO 02/24/17 21:00 03/26/17 20:59 02/25/17 20:46 100 MG Fentanyl (Duragesic Patch) 25 mcg Q3D@0900 TD 02/24/17 09:00 03/10/17 08:59 02/24/17 08:26 25 MCG Finasteride (Proscar Tab) 5 mg DAILY PO 02/24/17 09:00 03/26/17 08:59 02/26/17 08:00 5 MG Furosemide (Lasix Tab) 40 mg QAM PO 02/24/17 09:00 03/26/17 08:59 02/26/17 08:00 40 MG Lactobacillus Acidophilus (Floranex Tab) 3 tab TID PO 02/24/17 09:00 03/26/17 08:59 02/26/17 08:01 3 TAB Magnesium Oxide (Mag-Ox Tab) 400 mg BID PO 02/24/17 09:00 03/26/17 08:59 02/26/17 08:00 400 MG Potassium Chloride (Klor-Con Tab) 20 meq DAILY PO 02/24/17 09:00 03/26/17 08:59 02/26/17 08:01 20 MEQ Miscellaneous (Fentanyl Patch Remove & Waste) 1 ea Q3D@0859 N/A 02/24/17 08:59 03/26/17 08:58 02/24/17 08:25 1 EA Miscellaneous Information (Check Fentanyl Patch Placement) 1 ea QS N/A 02/24/17 00:45 03/26/17 00:44 02/26/17 08:03 1 EA Enteral Nutritional Formula (Boost) 1 can HS PO 02/24/17 21:00 03/26/17 20:59 Polyethylene Glycol/ Electrolytes (Golytely Soln) 1 dose UD PO 02/25/17 16:30 03/27/17 16:29 02/25/17 19:21 1 DOSE Glucose (Glucose 40% Gel) 15-30 GRAMS 15 GRAMS... UD PRN PO 02/26/17 08:30 03/28/17 08:29 UNV Glucose (Glucose Chew Tab) 4-8 Tablets 4 Tabl... UD PRN PO 02/26/17 08:30 03/28/17 08:29 UNV Dextrose (Dextrose 50% 50ML Syringe) 25-50ML OF 50% DW IV FOR... UD PRN IV 02/26/17 08:30 03/28/17 08:29 UNV Glucagon (Glucagon Inj) 1 mg UD PRN SQ 02/26/17 08:30 03/28/17 08:29 UNV Objective Vital Signs Date Time Temp Pulse Resp B/P (MAP) Pulse Ox O2 Delivery O2 Flow Rate FiO2 02/26/17 08:00 Nasal Cannula 2.0 02/26/17 07:54 36.8 62 21 114/58 (76) 93 Nasal Cannula 2.0 02/26/17 04:03 36.5 67 17 130/61 (84) 90 Nasal Cannula 2.0 02/26/17 04:00 90 Nasal Cannula 2.0 02/26/17 00:01 95 Nasal Cannula 2.0 02/25/17 23:35 37.2 63 16 121/53 (75) 95 Nasal Cannula 2.0 02/25/17 20:22 36.7 73 18 167/65 (99) 98 Nasal Cannula 2.0 02/25/17 20:00 97 Nasal Cannula 2.0 02/25/17 17:00 98 Nasal Cannula 2.0 02/25/17 16:58 36.8 67 18 155/67 (96) 98 Nasal Cannula 2.0 02/25/17 16:40 68 20 126/75 (92) 95 Nasal Cannula 2 02/25/17 16:24 72 20 101/48 (65) 95 Room Air 02/25/17 15:13 36.9 74 20 127/58 (81) 95 Nasal Cannula 2 02/25/17 12:00 99 Nasal Cannula 2.0 02/25/17 11:44 36.9 75 20 141/65 (90) 96 Nasal Cannula 1.0 02/25/17 11:27 37.0 74 20 130/56 (80) 93 Nasal Cannula 2.0 Physical Exam General Appearance: WD/WN, no apparent distress Respiratory/Chest: chest non-tender, normal breath sounds, no respiratory distress, no accessory muscle use, + decreased breath sounds Cardiovascular: regular rate, rhythm, no edema, no gallop, no JVD, no murmur Abdomen: normal bowel sounds, non tender, soft, no organomegaly, no pulsatile mass Extremities: + pertinent finding (tender over ITB and greater trochanter. No erythema, no swelling. 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 than left) Skin: + pertinent finding (multiple bruises and scabs over arms) Laboratory Results Last 24 Hours Test 02/26/17 06:33 02/26/17 08:39 02/26/17 09:04 White Blood Count 5.92 K/uL Red Blood Count 3.33 M/uL Hemoglobin 9.1 g/dL Hematocrit 29.1 % Mean Corpuscular Volume 87.4 fL Mean Corpuscular Hemoglobin 27.3 pg Mean Corpuscular Hemoglobin Concent 31.3 g/dl RDW Standard Deviation 52.9 fL RDW Coefficient of Variation 16.6 % Platelet Count 179 K/uL Mean Platelet Volume 10.9 fL Nucleated RBC Absolute Count (auto) 0.04 K/uL Nucleated Red Blood Cells % 0.8 % Sodium Level 138 mmol/L Potassium Level 3.9 mmol/L Chloride Level 104 mmol/L Carbon Dioxide Level 27 mmol/L Anion Gap 7.0 mmol/L Blood Urea Nitrogen 18 mg/dl Creatinine 0.80 mg/dl Est Creatinine Clear Calc Drug Dose 65.9 ml/min Estimated GFR () 92.4 Estimated GFR (Non- 79.8 BUN/Creatinine Ratio 22.9 Random Glucose 55 mg/dl Calcium Level 8.2 mg/dl Bedside Glucose 61 mg/dl 87 mg/dl Assessment and Plan Mr. Rodriguez is an 86 year old male with a history of bladder and prostate cancer , atrial fibrillation, CAD s/p stent placement, and hypertension who presented to [facility] as a transfer from [place] with weakness, AMS, INR of 7 and melena. Altered Mental Status secondary to pain vs. infection - resolved - Head CT at [place] ruled out acute hemorrhage or infarct - Unable to do MRI due to pacemaker. - urine culture negative - possibly due to prior ciprofloxacin use? Supratherapeutic INR/GI bleed - Given Vitamin K and FFP at [place] as his INR was 7 there - possible interaction between warfarin and cipro - INR currently 1.3 - GI consulted, thank you for recommendations - EGD showed hiatal hernia, but no source of bleeding - colonoscopy today - consider red cell scan/video capsule - continue PPI and follow Hb daily - Hgb currently stable at 9.1 - continue protonix 40 mg BID - Hold Coumadin Left Leg pain secondary to Fall - Left hip Xray done at [place] without fracture - Femur xray negative - pain control, apply heat and voltaren gel to area - CT left hip showed no fracture or subluxation - ?possible bursitis, may benefit from steroid injection 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 - he states he has broken his right hip before - thank you to orthotics for consult - pt/ot evals in place New Oxygen Demand - patient not on oxygen at home - on 2L of oxygen via nasal cannula here - CXR showed mild atelectasis and stable cardiomegaly - no evidence of infection - will monitor & 2 step on d/c CKD stage 3 - at baseline - creatinine 1.31 H/o prostate ca/bladder ca - stable BPH - continue finasteride Cad/HTN - aspirin, lipitor, lasix Afib s/p Pacemaker - NSR - hold warfarin Chronic Pain - Fentanyl patch - Citalopram Code: DNR DVT Prophylaxis: chemical means contraindicated Disposition: remains on telemetry. Extensive discussion with daughter regarding disposition on d/c. She agrees that he is not safe living at home alone, and will further discuss with case management about a terminal [facility] care facility Resident Physician Supervision Note: I was present with PGY1 Dr. Laina Cabezas during the history and exam. I discussed the case with the resident and agree with the findings and plan as documented in the note. Any exceptions or clarifications are listed here: none. Continues with left lateral thigh pain. No overt GI bleeding during bowel prep last night. No dyspnea. Tele stable. VSS afebrile gen - nad mouth - MMM neck - no JVD heart - RRR lungs - CTA b/l abd - soft ext - no edema musculo - left hip - passive ROM elicits no pain; left trochanteric bursa with pain to palpation; leg-length discrepency as previous A/P: 1. encephalopathy - resolved. etiology? toxic from cipro? metabolic from prior UTI? other? 2. suspected acute blood loss anemia - GI has seen - EGD and colonoscopy without source of bleeding. Small bowel AVM ? Other ? 3. ?UTI - ruled out - urine cx negative. No abx indicated at this time. 4. frequent falls, weakness - discussed extensively with pt & his daughter today need for personal care/assisted living. They both agree to such. Plan in place for [facility] first, if eligible, followed by personal senior living thereafter. 5. hypoxia / o2 requirement - unclear cause. Consider repeating chest imaging. 6. left hip pain - CT left hip neg for fracture. Trochanteric bursitis as a result of trauma? Consider steroid injection. dispo planning can d/c tele in AM if stable Documented By: Joey Olivier MD Resident Tracking Resident Involvement: Resident Care Provided Care Provided: Adult Hospital Medicine
--- NOTE | 2017-02-26 13:47 | DIAGNOSTIC IMAGING REPORT ---
L HIP-LOWER EXTREMITY WITHOUT HISTORY: 86 years-old Male left hip pain post fall acute left hip pain status post fall COMPARISON: Left femur radiographs 02/24/2017. TECHNIQUE: Multiple axial CT images of the left hip were obtained without contrast. A dose lowering technique was used consistent with the principals of [facility]. FINDINGS: The bones are moderately demineralized. The imaged left sacrum and left hemipelvis appears intact. Moderate left femoral acetabular and pubic symphysis degenerative changes. No acute fracture or subluxation identified. Prostamegaly. Small fat filled left inguinal hernia. Mild urinary bladder distention. Colonic diverticulosis. Atherosclerotic vascular disease. Soft tissues are unremarkable. No large joint effusion or soft tissue hematoma. No definite bursitis about the left hip. IMPRESSION: 1. Moderately demineralized bones without acute fracture or subluxation identified. 2. Moderate degenerative changes of the left femoral acetabular joint. 3. Prostamegaly. The above report was generated using voice recognition software. It may contain grammatical, syntax or spelling errors. Electronically signed by: Shadi Fleming M.D. 02/26/2017 1:46 PM Dictated Date/Time: 02/26/2017 1:41 PM
[2017-02-26] MEDS ORDERED: ATROPINE SULFATE 0.1 MG/ML 5ML SYR IV PRN (15:30)
[2017-02-26] MEDS ORDERED: EpHEDrine SULFATE INJ 50 MG/ML AMP IV PRN (15:30)
[2017-02-26] MEDS ORDERED: ONDANSETRON INJ 2 MG/ML 2 ML VIAL ONE (15:31)
[2017-02-26] MEDS ORDERED: PROPOFOL IV EMULSION 10 MG/ML 20 ML VIAL IV ONE (15:31)
[2017-02-26] MEDS ORDERED: MIDAZOLAM HCL 1 MG/ML 2ML VIAL ONE (15:31)
--- NOTE | 2017-02-26 16:41 | Anesthesiology Progress Note ---
Anesthesia Post Op Note Date & Time Feb 26, 2017 at 16:41 Vital Signs Pain Intensity: 3.0 Vital Signs Past 12 Hours Date Time Temp Pulse Resp B/P (MAP) Pulse Ox O2 Delivery O2 Flow Rate FiO2 02/26/17 15:14 36.7 70 22 133/54 (80) 99 Room Air 02/26/17 12:15 36.6 65 20 117/63 (81) 97 Nasal Cannula 2.0 02/26/17 12:00 Nasal Cannula 2.0 02/26/17 08:00 Nasal Cannula 2.0 02/26/17 07:54 36.8 62 21 114/58 (76) 93 Nasal Cannula 2.0 Notes Mental Status: alert / awake / arousable, participated in evaluation Pt Amnestic to Procedure: Yes Nausea / Vomiting: adequately controlled Pain: adequately controlled Airway Patency, RR, SpO2: stable & adequate BP & HR: stable & adequate Hydration State: stable & adequate Anesthetic Complications: no major complications apparent
[2017-02-26] MEDS: DICLOFENAC SOD 1% GEL 100 GM TUBE EXT SCH ×2 (17:00→20:58)
--- NOTE | 2017-02-26 17:04 | GI REPORT ---
Procedure Date: 02/26/2017 3:50 PM Procedure: Colonoscopy Indications: Gastrointestinal bleeding Medicines: Propofol per Anesthesia Complications: No immediate complications. Estimated blood loss: Minimal. Estimated Blood Loss: Estimated blood loss was minimal. Procedure: Pre-Anesthesia Assessment: - Prior to the procedure, a History and Physical was performed, and patient medications and allergies were reviewed. The patient's tolerance of previous anesthesia was also reviewed. The risks and benefits of the procedure and the sedation options and risks were discussed with the patient. All questions were answered, and informed consent was obtained. Prior Anticoagulants: The patient has taken no previous anticoagulant or antiplatelet agents. ASA Grade Assessment: IV - A patient with severe systemic disease that is a constant threat to life. After reviewing the risks and benefits, the patient was deemed in satisfactory condition to undergo the procedure. After I obtained informed consent, the scope was passed under direct vision. Throughout the procedure, the patient's blood pressure, pulse, and oxygen saturations were monitored continuously. The scope was introduced through the anus and advanced to the cecum, identified by appendiceal orifice and ileocecal valve. The colonoscopy was unusually difficult due to multiple diverticula in the colon, significant looping and a tortuous colon. Successful completion of the procedure was aided by changing the patient to a supine position and using manual pressure. The patient tolerated the procedure well. The quality of the bowel preparation was good. Findings: The perianal and digital rectal examinations were normal. Pertinent negatives include normal sphincter tone, no palpable rectal lesions and no anal lesion or abnormality was detected. Multiple small-mouthed diverticula were found in the sigmoid colon. A 5 mm polyp was found in the ascending colon. The polyp was sessile. The polyp was removed with a cold snare. Resection and retrieval were complete. Verification of patient identification for the specimen was done by the physician and door technician using the patient's name and medical record number. The exam was otherwise without abnormality. The retroflexed view of the distal rectum and anal verge was normal and showed no anal or rectal abnormalities. Impression: - Diverticulosis in the sigmoid colon. - One 5 mm polyp in the ascending colon, removed with a cold snare. Resected and retrieved. Recommendation: - Return patient to [facility] for ongoing care. - Await pathology results. - Advance diet as tolerated. - Check hemoglobin daily. MD Justin Small MD 02/26/2017 5:04:04 PM This report has been signed electronically. Note Initiated On: 02/26/2017 3:50 PM I attest to the content of the Intraoperative Record and orders documented therein, exceptions below
[2017-02-26] MEDS: BOOST VANILLA PO SCH (20:58)
[2017-02-26] MEDS: ATORVASTATIN 20 MG TAB PO SCH (20:59)
[2017-02-26] MEDS: DOCUSATE SODIUM 100 MG CAP PO SCH (20:59)
[2017-02-27] VITALS (8 sets, daily range): BP systolic 132–176; BP diastolic 62–76; PULSE 60–75; TEMP 36.4–36.7; O2SAT 92–99
[2017-02-27] MEDS: CHECK FENTANYL PATCH PLACEMENT SCH ×3 (00:25→15:56)
[2017-02-27] MEDS: SODIUM CHLORIDE 0.9% 1000ML 1,000 ML IV SCH (00:26)
[2017-02-27 05:50] LABS: HEMATOCRIT 28.9 % (42-52); HEMOGLOBIN 8.9 g/dL (14.0-18.0); MEAN CELL VOLUME 87.3 fL (80-100); MEAN CORPUSCULAR HEMOGLOBIN 26.9 pg (25-34); MEAN CORPUSCULAR HGB CONC 30.8 g/dl (32-36); MEAN PLATELET VOLUME 11.1 fL (7.4-10.4); PLATELET COUNT 167 K/uL (130-400); RED CELL DISTRIBUTION WIDTH CV 16.6 % (11.5-14.5); RED CELL DISTRIBUTION WIDTH SD 53.4 fL (36.4-46.3); WHITE BLOOD COUNT 5.52 K/uL (4.8-10.8)
[2017-02-27 06:21] LABS: CREATININE 0.97 mg/dl (0.60-1.40); POTASSIUM 3.6 mmol/L (3.5-5.1)
[2017-02-27] MEDS: FENTANYL PATCH REMOVE & WASTE SCH (08:59)
[2017-02-27] MEDS: LACTOBACILLUS ACIDOPHILUS (FLORANEX) TAB PO SCH ×3 (09:45→19:46)
[2017-02-27] MEDS: DILTIAZEM HCL 120 MG CAPCR PO SCH (09:45)
[2017-02-27] MEDS: CITALOPRAM 40 MG TAB PO SCH (09:45)
[2017-02-27] MEDS: FUROSEMIDE 40 MG TAB PO SCH (09:45)
[2017-02-27] MEDS: MAGNESIUM OXIDE 400 MG TAB PO SCH ×2 (09:45→19:46)
[2017-02-27] MEDS: FINASTERIDE 5 MG TAB PO SCH (09:45)
[2017-02-27] MEDS: POTASSIUM CHLORIDE 20 MEQ TABCR PO SCH (09:46)
[2017-02-27] MEDS: DICLOFENAC SOD 1% GEL 100 GM TUBE EXT SCH ×4 (09:46→19:49)
[2017-02-27] MEDS: PANTOprazole SOD 40 MG TAB PO SCH ×2 (09:46→19:46)
[2017-02-27] MEDS: FENTANYL 25 MCG/HR TDSY TD SCH (09:51)
[2017-02-27] MEDS ORDERED: BENZOCAINE/TETRACAIN/BUTAM CAN 200 APPLN/20 GM CAN EXT ONE (11:00)
[2017-02-27] MEDS ORDERED: BUPIVACAINE 0.25% 30 ML VIAL INJ ONE (11:00)
[2017-02-27] MEDS ORDERED: TRIAMCINOLONE ACET 40 MG/ML VIAL IM ONE (11:00)
[2017-02-27] MEDS ORDERED: LIDOCAINE HCL 1% 20 ML VIAL IM ONE (11:00)
[2017-02-27] MEDS ORDERED: LIDOCAINE HCL 1% 20 ML VIAL ONE (16:19)
--- NOTE | 2017-02-27 16:47 | PROGRESS NOTE ---
DATE: 02/27/2017 The patient presented with anemia and melena, and underwent EGD and colonoscopy by Dr. Yan. He was found to have diverticulosis, but no other major potential cause for blood loss. Since being hospitalized, his hemoglobin and hematocrit have remained relatively stable in the 9 range. He has not received any transfusions since being hospitalized. At this point, patient is stable enough that I think we can sign off and please contact us for any new problems.
--- NOTE | 2017-02-27 17:04 | Procedure Note ---
Procedure Note Procedure Date Feb 27, 2017. (Laina Cabezas M.D.) Procedure Description Procedure Name: PROCEDURE: Left hip trochanteric bursa injection ATTENDING: Dr. Olivier The risks, benefits and alternatives of this procedure were explained to the patient. Written consent was obtained. The patient was placed in the right lateral position with his knees flexed. The point of maximal tenderness was palpated over the greater trochanter. The area was anesthetized with cetacaine, and then sterilized with iodine swabs. 1cc of kenalog, 2 cc of marcaine and 2 cc of bupivicaine was inserted into the greater trochanter using an adult 22 gauge spinal needle. There was no blood present on drawback and the solution was injected into the bursa. The area was then cleaned and a band-aid was applied. The patient tolerated the procedure well. (Laina Cabezas M.D.) Comments: Resident Physician Supervision Note: I was present with PGY1 Dr. Laina Cabezas during all hickman components of the procedure and was available to assist if necessary. I agree with her procedure note as outlined. Documented By: Joey Olivier MD (Joey Olivier MD) Resident Tracking Resident Involvement: Resident Care Provided Care Provided: [facility] (Laina Cabezas M.D.)
--- NOTE | 2017-02-27 17:11 | Family Medicine Progress Note ---
Progress Note Date of Service Feb 27, 2017. Subjective Pt evaluation today including: conversation w/ patient, physical exam, chart review, lab review, review of inpatient medication list Pain: Left hip pain reported PO Intake: Tolerating Po intake Voiding: no voiding problems Mr. Rodriguez reports he feels well today. He states he remains with his left hip pain, and that it has not changed from yesterday. He states he does not have any new complaints and denies chest pain, n/v, SOB, or abdominal pain. Constitutional: No fever, No chills Respiratory: No cough, No sputum, No wheezing, No shortness of breath, No dyspnea on exertion Cardiovascular: No chest pain Abdomen: No pain, No nausea, No vomiting, No diarrhea Musculoskeletal: + problem reported (left hip pain ) All Other Systems: Reviewed and Negative Medications Current Inpatient Medications Medications (Trade) Dose Ordered Sig/Shin Route Start Time Stop Time Status Last Admin Dose Admin Acetaminophen (Tylenol Tab) 650 mg Q4H PRN PO 02/23/17 23:45 03/25/17 23:44 02/24/17 21:13 650 MG Al Hydrox/Mg Hydrox/Simethicone (Maalox Max Susp) 15 ml Q4H PRN PO 02/23/17 23:45 03/25/17 23:44 Magnesium Hydroxide (Milk Of Magnesia Susp) 30 ml Q12H PRN PO 02/23/17 23:45 03/25/17 23:44 Ondansetron HCl (Zofran Inj) 4 mg Q6H PRN IV 02/23/17 23:45 03/25/17 23:44 02/26/17 05:06 4 MG Nitroglycerin (Nitrostat Tab) 0.4 mg UD PRN SL 02/23/17 23:45 03/25/17 23:44 Polyethylene (Miralax Powder Packet) 17 gm DAILY PRN PO 02/23/17 23:45 03/25/17 23:44 Atorvastatin Calcium (Lipitor Tab) 20 mg HS PO 02/24/17 21:00 03/26/17 20:59 02/26/17 20:59 20 MG Citalopram Hydrobromide (celeXA TAB) 40 mg DAILY PO 02/24/17 09:00 03/26/17 08:59 02/27/17 09:45 40 MG Diltiazem HCl (Cardizem Cd Cap) 120 mg DAILY PO 02/24/17 09:00 03/26/17 08:59 02/27/17 09:45 120 MG Docusate Sodium (coLACE CAP) 100 mg HS PO 02/24/17 21:00 03/26/17 20:59 02/26/17 20:59 100 MG Fentanyl (Duragesic Patch) 25 mcg Q3D@0900 TD 02/24/17 09:00 03/10/17 08:59 02/27/17 09:51 25 MCG Finasteride (Proscar Tab) 5 mg DAILY PO 02/24/17 09:00 03/26/17 08:59 02/27/17 09:45 5 MG Furosemide (Lasix Tab) 40 mg QAM PO 02/24/17 09:00 03/26/17 08:59 02/27/17 09:45 40 MG Lactobacillus Acidophilus (Floranex Tab) 3 tab TID PO 02/24/17 09:00 03/26/17 08:59 02/27/17 09:45 3 TAB Magnesium Oxide (Mag-Ox Tab) 400 mg BID PO 02/24/17 09:00 03/26/17 08:59 02/27/17 09:45 400 MG Potassium Chloride (Klor-Con Tab) 20 meq DAILY PO 02/24/17 09:00 03/26/17 08:59 02/27/17 09:46 20 MEQ Miscellaneous (Fentanyl Patch Remove & Waste) 1 ea Q3D@0859 N/A 02/24/17 08:59 03/26/17 08:58 02/27/17 08:59 1 EA Miscellaneous Information (Check Fentanyl Patch Placement) 1 ea QS N/A 02/24/17 00:45 03/26/17 00:44 02/27/17 08:00 1 EA Enteral Nutritional Formula (Boost) 1 can HS PO 02/24/17 21:00 03/26/17 20:59 02/26/17 20:58 1 CAN Polyethylene Glycol/ Electrolytes (Golytely Soln) 1 dose UD PO 02/25/17 16:30 03/27/17 16:29 02/25/17 19:21 1 DOSE Glucose (Glucose 40% Gel) 15-30 GRAMS 15 GRAMS... UD PRN PO 02/26/17 08:30 03/28/17 08:29 Glucose (Glucose Chew Tab) 4-8 Tablets 4 Tabl... UD PRN PO 02/26/17 08:30 03/28/17 08:29 Dextrose (Dextrose 50% 50ML Syringe) 25-50ML OF 50% DW IV FOR... UD PRN IV 02/26/17 08:30 03/28/17 08:29 Glucagon (Glucagon Inj) 1 mg UD PRN SQ 02/26/17 08:30 03/28/17 08:29 Pantoprazole Sodium (Protonix Tab) 40 mg BID PO 02/27/17 09:00 03/29/17 08:59 02/27/17 09:46 40 MG Diclofenac Sodium (Voltaren 1% Top Gel) 1 appln QID EXT 02/26/17 17:00 03/28/17 16:59 02/27/17 09:46 1 APPLN Objective Vital Signs Date Time Temp Pulse Resp B/P (MAP) Pulse Ox O2 Delivery O2 Flow Rate FiO2 02/27/17 07:50 36.4 64 18 166/70 (102) 98 Nasal Cannula 2.0 02/27/17 04:00 97 Nasal Cannula 2.0 02/27/17 03:40 36.6 64 16 139/70 (93) 97 Room Air 02/27/17 00:01 95 Nasal Cannula 2.0 02/26/17 23:40 37.1 67 20 128/63 (84) 95 Nasal Cannula 2.0 02/26/17 20:00 94 Nasal Cannula 2.0 02/26/17 19:48 36.9 73 20 114/63 (80) 96 Nasal Cannula 2.0 02/26/17 17:00 93 Nasal Cannula 2.0 02/26/17 17:00 36.5 61 18 150/73 (98) 93 Nasal Cannula 2.0 02/26/17 16:57 67 18 114/48 (70) 93 Nasal Cannula 4 02/26/17 16:49 64 18 114/38 (63) 98 Room Air 02/26/17 16:36 65 16 109/38 (61) 97 Room Air 02/26/17 15:14 36.7 70 22 133/54 (80) 99 Room Air 02/26/17 12:15 36.6 65 20 117/63 (81) 97 Nasal Cannula 2.0 02/26/17 12:00 Nasal Cannula 2.0 Physical Exam General Appearance: WD/WN, no apparent distress Respiratory/Chest: chest non-tender, lungs clear, no respiratory distress, no accessory muscle use, + decreased breath sounds Cardiovascular: regular rate, rhythm, no edema, no gallop, no JVD, no murmur Abdomen: normal bowel sounds, non tender, soft, no organomegaly, no pulsatile mass Extremities: + pertinent finding (multiple bruises and scabs over arms. Tenderness over left hip) Assessment and Plan Mr. Rodriguez is an 86 year old male with a history of bladder and prostate cancer , atrial fibrillation, CAD s/p stent placement, and hypertension who presented to [facility] as a transfer from [place] with weakness, AMS, INR of 7 and melena. Altered Mental Status secondary to pain vs. infection - resolved - Head CT at [place] ruled out acute hemorrhage or infarct - Unable to do MRI due to pacemaker. - urine culture negative - possibly due to prior ciprofloxacin use? Supratherapeutic INR/GI bleed - Given Vitamin K and FFP at [place] as his INR was 7 there - possible interaction between warfarin and cipro - INR currently 1.3 - GI consulted, thank you for recommendations - EGD showed hiatal hernia, but no source of bleeding - colonoscopy showed diverticulosis in the sigmoid colon, 5mm polyp in the ascending colon (removed and awaiting path) but no active sources of bleeding - continue PPI and follow Hb daily - Hgb currently stable at 8.9 - continue protonix 40 mg BID - Hold Coumadin Left Leg pain secondary to Fall - Left hip Xray done at [place] without fracture - Femur xray negative - pain control, apply heat and voltaren gel to area - CT left hip showed no fracture or subluxation - steroid injection into left trochanteric bursa (see procedure note for details ) 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 - he states he has broken his right hip before - thank you to orthotics for consult - pt/ot evals in place New Oxygen Demand - patient not on oxygen at home - on 2L of oxygen via nasal cannula here - CXR 02/24 showed mild atelectasis and stable cardiomegaly - no evidence of infection - repeat cxr today and consider chest CT if negative - will monitor & 2 step on d/c CKD stage 3 - at baseline - creatinine 0.97 H/o prostate ca/bladder ca - stable BPH - continue finasteride Cad/HTN - aspirin, lipitor, lasix Afib s/p Pacemaker - NSR - hold warfarin Chronic Pain - Fentanyl patch - Citalopram Code: DNR DVT Prophylaxis: chemical means contraindicated Disposition: transferred to med/surg. Pt and daughter hoping for d/c to [facility]. Awaiting confirmation. Resident Physician Supervision Note: I was present with PGY1 Dr. Laina Cabezas during the history and exam. I discussed the case with the resident and agree with the findings and plan as documented in the note. Any exceptions or clarifications are listed here: none. Only complaint was that of left hip pain. Appetite improved. No dyspnea. tele stable overnight. VSS afebrile gen - nad mouth - MMM neck - no JVD heart - RRR lungs - CTA b/l, decreased BS bases abd - soft, NT ext - no edema musculo - left hip - tender over trochanteric bursa w/ palpation; leg-length discrepency A/P: 1. encephalopathy - resolved. etiology? toxic from cipro? metabolic from prior UTI? other? either way it is resolved. 2. suspected acute blood loss anemia - GI has seen - EGD and colonoscopy without source of bleeding. One polyp removed. H/h stable. can likely resume coumadin cautiously in the next 2 days or so. 3. ?UTI - ruled out - urine cx negative. No abx indicated at this time. 4. frequent falls, weakness - [facility] referral in process likely needs personal care service long-term following rehab 5. hypoxia / o2 requirement - unclear cause. chest x-ray. if nondiagnostic then Chest CT. 6. left hip Trochanteric bursitis - s/p injection today dispo planning can d/c tele Documented By: Joey Olivier MD Resident Tracking Resident Involvement: Resident Care Provided Care Provided: Adult [facility]
--- NOTE | 2017-02-27 19:36 | DIAGNOSTIC IMAGING REPORT ---
CHEST 2 VIEWS ROUTINE CLINICAL HISTORY: Hypoxia COMPARISON STUDY: 02/24/2017 FINDINGS: The heart is mildly enlarged. There is a left subclavian dual-chamber central venous pacemaker present. There are low lung volumes. There is chronic interstitial thickening. There are increasing left basilar opacities. A minimal superimposed pneumonitis must be considered.[ IMPRESSION: 1. Low lung volumes with chronic interstitial thickening 2. Increasing left basilar opacities. A minimal superimposed pneumonitis cannot be excluded. Electronically signed by: Tanner Hook M.D. 02/27/2017 7:35 PM Dictated Date/Time: 02/27/2017 7:33 PM
[2017-02-27] MEDS: DOCUSATE SODIUM 100 MG CAP PO SCH (19:46)
[2017-02-27] MEDS: ATORVASTATIN 20 MG TAB PO SCH (19:46)
[2017-02-27] MEDS: BOOST VANILLA PO SCH (20:46)
[2017-02-28] MEDS: CHECK FENTANYL PATCH PLACEMENT SCH ×3 (00:08→15:44)
[2017-02-28 06:11] LABS: HEMOGLOBIN 9.2 g/dL (14.0-18.0); MEAN CELL VOLUME 86.8 fL (80-100); MEAN CORPUSCULAR HEMOGLOBIN 27.5 pg (25-34); MEAN CORPUSCULAR HGB CONC 31.7 g/dl (32-36); PLATELET COUNT 147 K/uL (130-400); RED CELL DISTRIBUTION WIDTH CV 16.4 % (11.5-14.5); RED CELL DISTRIBUTION WIDTH SD 52.3 fL (36.4-46.3); WHITE BLOOD COUNT 5.49 K/uL (4.8-10.8)
[2017-02-28 06:21] LABS: INR 1.4 (0.9-1.1)
[2017-02-28 07:37] VITALS: BP 137/69; PULSE 59; TEMP 36.5; O2SAT 98
[2017-02-28 08:00] VITALS: O2SAT 98
[2017-02-28 08:17] VITALS: PULSE 62
[2017-02-28] MEDS: DICLOFENAC SOD 1% GEL 100 GM TUBE EXT SCH ×4 (08:17→20:04)
[2017-02-28] MEDS: DILTIAZEM HCL 120 MG CAPCR PO SCH (08:22)
[2017-02-28] MEDS: PANTOprazole SOD 40 MG TAB PO SCH ×2 (08:22→20:03)
[2017-02-28] MEDS: MAGNESIUM OXIDE 400 MG TAB PO SCH ×2 (08:22→20:04)
[2017-02-28] MEDS: POTASSIUM CHLORIDE 20 MEQ TABCR PO SCH (08:23)
[2017-02-28] MEDS: FUROSEMIDE 40 MG TAB PO SCH (08:23)
[2017-02-28] MEDS: LACTOBACILLUS ACIDOPHILUS (FLORANEX) TAB PO SCH ×3 (08:23→20:04)
[2017-02-28] MEDS: FINASTERIDE 5 MG TAB PO SCH (08:23)
[2017-02-28] MEDS: CITALOPRAM 40 MG TAB PO SCH (08:24)
[2017-02-28 15:05] VITALS: BP 122/62; PULSE 73; TEMP 36.5; O2SAT 97
[2017-02-28 16:00] VITALS: O2SAT 98
[2017-02-28] MEDS ORDERED: FUROSEMIDE INJ 20 MG in SYRINGE 0 ML IV ONE (17:15)
[2017-02-28] MEDS ORDERED: WARFARIN SOD 6 MG TAB PO ONE (17:30)
--- NOTE | 2017-02-28 17:42 | Family Medicine Progress Note ---
Progress Note Date of Service Feb 28, 2017. Subjective Pt evaluation today including: conversation w/ patient, physical exam, chart review, lab review Pain: reports improved L hip pain s/p steroid injection PO Intake: tolerating Voiding: no voiding problems This AM Mr. Angulo reports improved L hip pain and weakness. Last BM was yesterday and still dark. No BM today. Continues to be sob on O2. Constitutional: No fever, No chills Respiratory: + shortness of breath Cardiovascular: No chest pain Abdomen: No pain, No nausea, No vomiting Male : No dysuria Neurologic: + weakness Medications Current Inpatient Medications Medications (Trade) Dose Ordered Sig/Shin Route Start Time Stop Time Status Last Admin Dose Admin Acetaminophen (Tylenol Tab) 650 mg Q4H PRN PO 02/23/17 23:45 03/25/17 23:44 02/24/17 21:13 650 MG Al Hydrox/Mg Hydrox/Simethicone (Maalox Max Susp) 15 ml Q4H PRN PO 02/23/17 23:45 03/25/17 23:44 Magnesium Hydroxide (Milk Of Magnesia Susp) 30 ml Q12H PRN PO 02/23/17 23:45 03/25/17 23:44 Ondansetron HCl (Zofran Inj) 4 mg Q6H PRN IV 02/23/17 23:45 03/25/17 23:44 02/26/17 05:06 4 MG Nitroglycerin (Nitrostat Tab) 0.4 mg UD PRN SL 02/23/17 23:45 03/25/17 23:44 Polyethylene (Miralax Powder Packet) 17 gm DAILY PRN PO 02/23/17 23:45 03/25/17 23:44 Atorvastatin Calcium (Lipitor Tab) 20 mg HS PO 02/24/17 21:00 03/26/17 20:59 02/27/17 19:46 20 MG Citalopram Hydrobromide (celeXA TAB) 40 mg DAILY PO 02/24/17 09:00 03/26/17 08:59 02/28/17 08:24 40 MG Diltiazem HCl (Cardizem Cd Cap) 120 mg DAILY PO 02/24/17 09:00 03/26/17 08:59 02/28/17 08:22 120 MG Docusate Sodium (coLACE CAP) 100 mg HS PO 02/24/17 21:00 03/26/17 20:59 02/27/17 19:46 100 MG Fentanyl (Duragesic Patch) 25 mcg Q3D@0900 TD 02/24/17 09:00 03/10/17 08:59 02/27/17 09:51 25 MCG Finasteride (Proscar Tab) 5 mg DAILY PO 02/24/17 09:00 03/26/17 08:59 02/28/17 08:23 5 MG Furosemide (Lasix Tab) 40 mg QAM PO 02/24/17 09:00 03/26/17 08:59 02/28/17 08:23 40 MG Lactobacillus Acidophilus (Floranex Tab) 3 tab TID PO 02/24/17 09:00 03/26/17 08:59 02/28/17 13:42 3 TAB Magnesium Oxide (Mag-Ox Tab) 400 mg BID PO 02/24/17 09:00 03/26/17 08:59 02/28/17 08:22 400 MG Potassium Chloride (Klor-Con Tab) 20 meq DAILY PO 02/24/17 09:00 03/26/17 08:59 02/28/17 08:23 20 MEQ Miscellaneous (Fentanyl Patch Remove & Waste) 1 ea Q3D@0859 N/A 02/24/17 08:59 03/26/17 08:58 02/27/17 08:59 1 EA Miscellaneous Information (Check Fentanyl Patch Placement) 1 ea QS N/A 02/24/17 00:45 03/26/17 00:44 02/28/17 15:44 1 EA Enteral Nutritional Formula (Boost) 1 can HS PO 02/24/17 21:00 03/26/17 20:59 02/27/17 20:46 1 CAN Glucose (Glucose 40% Gel) 15-30 GRAMS 15 GRAMS... UD PRN PO 02/26/17 08:30 03/28/17 08:29 Glucose (Glucose Chew Tab) 4-8 Tablets 4 Tabl... UD PRN PO 02/26/17 08:30 03/28/17 08:29 Dextrose (Dextrose 50% 50ML Syringe) 25-50ML OF 50% DW IV FOR... UD PRN IV 02/26/17 08:30 03/28/17 08:29 Glucagon (Glucagon Inj) 1 mg UD PRN SQ 02/26/17 08:30 03/28/17 08:29 Pantoprazole Sodium (Protonix Tab) 40 mg BID PO 02/27/17 09:00 03/29/17 08:59 02/28/17 08:22 40 MG Diclofenac Sodium (Voltaren 1% Top Gel) 1 appln QID EXT 02/26/17 17:00 03/28/17 16:59 02/28/17 17:02 1 APPLN Warfarin Sodium (Coumadin Tab) 6 mg DAILY@16 PO 03/01/17 16:00 03/31/17 15:59 Warfarin Sodium (Coumadin Tab) 6 mg NOW ONCE PO 02/28/17 17:30 02/28/17 17:31 Objective Vital Signs Date Time Temp Pulse Resp B/P (MAP) Pulse Ox O2 Delivery O2 Flow Rate FiO2 02/28/17 16:00 98 Nasal Cannula 2.0 02/28/17 15:05 36.5 73 22 122/62 (82) 97 Nasal Cannula 2.0 02/28/17 08:17 62 02/28/17 08:00 98 Nasal Cannula 2.0 02/28/17 07:37 36.5 59 16 137/69 (91) 98 Nasal Cannula 2.0 02/28/17 00:35 Nasal Cannula 2.0 02/27/17 23:51 36.6 63 18 132/62 (85) 92 Nasal Cannula 2.0 02/27/17 20:30 Nasal Cannula 2.0 02/27/17 19:43 36.5 75 18 153/65 (94) 96 Nasal Cannula 2.0 Physical Exam General Appearance: no apparent distress Eyes: normal inspection Respiratory/Chest: lungs clear, + decreased breath sounds Cardiovascular: regular rate, rhythm, no murmur Abdomen: normal bowel sounds, non tender, soft Extremities: non-tender, no pedal edema, + pertinent finding (R leg shorter than L; no hip tenderness on palpation of greater trochanter ) Neurologic/Psychiatric: alert, oriented x 3 Skin: + pertinent finding (multiple ecchymoses bilateral arms) Laboratory Results 02/28/17 05:54 Test 02/28/17 05:54 Red Blood Count 3.34 M/uL (4.7-6.1) Mean Corpuscular Volume 86.8 fL (80-100) Mean Corpuscular Hemoglobin 27.5 pg (25-34) Mean Corpuscular Hemoglobin Concent 31.7 g/dl (32-36) RDW Standard Deviation 52.3 fL (36.4-46.3) RDW Coefficient of Variation 16.4 % (11.5-14.5) Mean Platelet Volume 11.0 fL (7.4-10.4) Prothrombin Time 14.9 SECONDS (9.0-12.0) Prothromb Time International Ratio 1.4 (0.9-1.1) Assessment and Plan Mr. Angulo is an 86yoM with hx of bladder and prostate cancer, atrial fibrillation, CAD s/p stent placement, and hypertension who presented with weakness, AMS, INR of 7 and melena. Currently with INR of 1.4 and improved weakness/AMS but persistent melena. Supratherapeutic INR/GI bleed - resolving - Given Vitamin K and FFP at [place] for INR of 7 - possible interaction between warfarin and cipro - INR currently 1.4 - GI consulted - EGD - hiatal hernia, no source of bleeding - colonoscopy - diverticulosis in sigmoid colon, 5mm polyp in the ascending colon (removed) but no active sources of bleeding - continue PPI and follow Hb daily - Hgb currently stable and improving at 9.2 - continue protonix 40 mg BID - Resumed Coumadin today New Oxygen Demand - patient not on oxygen at home - requiring 2L of oxygen via nasal cannula - CXR 02/24 showed mild atelectasis and stable cardiomegaly - no evidence of infection - repeat cxr 02/27 - increasing L basilar opacities with low lung volumes and chronic interstitial thickening - Lasix 20mg IV once to rule out pulmonary edema/volume overload as etiology - consider chest CT if not improved with Lasix - 2 step on d/c Altered Mental Status secondary to pain vs. infection - resolved - Head CT at [place] ruled out acute hemorrhage or infarct - Unable to do MRI due to pacemaker. - urine culture negative - possibly due to prior ciprofloxacin use? Left Leg pain secondary to Fall - improved s/p steroid injection - Left hip Xray done at [place] without fracture - Femur xray negative - CT left hip showed no fracture or subluxation - pain control, apply heat and voltaren gel to area - steroid injection into left trochanteric bursa (see procedure note for details ) 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 - broke his right hip before - orthotics consulted - pt/ot eval CKD stage 3 - at baseline - creatinine 0.97 H/o prostate ca/bladder ca - stable BPH - continue finasteride Cad/HTN - continue aspirin, lipitor, lasix Afib s/p Pacemaker - NSR - restarted on warfarin 6mg daily based on home dosage Chronic Pain - continue Fentanyl patch - continue Citalopram Code: DNR DVT Prophylaxis: On coumadin Disposition: Pt and daughter hoping for d/c to [facility]. Awaiting confirmation. Resident Physician Supervision Note: I was present with PGY1 Dr. Manuel Davey during the history and exam. I discussed the case with the resident and agree with the findings and plan as documented in the note. Any exceptions or clarifications are listed here: none. Left hip pain much better. Denies cough. Excellent appetite - eating 100% of meals. VSS afebrile gen - nad mouth - MMM neck - question of JVD heart - RRR lungs - bibasilar dry rales, no wheeze, no increased work of breathing abd - soft, NT ext - trace edema musculo - left hip - nontender over trochanteric bursa w/ palpation today A/P: 1. encephalopathy - resolved. 2. suspected acute blood loss anemia - s/p EGD and colonoscopy without source of bleeding. One polyp removed and benign. H/h stable x multiple days. cautiously resume coumadin today. if re-bleeding occurs then stop coumadin and consider outpatient capsule endoscopy. 3. ?UTI - ruled out - urine cx negative. No abx indicated at this time. 4. frequent falls, weakness - [facility] referral in process ([place] location ) likely needs personal care service long-term following rehab 5. hypoxia / o2 requirement - unclear cause. chest x-ray w/ interstitial infiltrates. diastolic CHF? lasix 20mg IV x 1 and reassess in AM. consider chest CT if no improvement with diuresis. ILD? 6. left hip Trochanteric bursitis - s/p injection with improved symptoms Documented By: Joey Olivier MD Resident Involvement: Resident Care Provided Care Provided: [facility]
[2017-02-28] MEDS: DOCUSATE SODIUM 100 MG CAP PO SCH (20:04)
[2017-02-28] MEDS: BOOST VANILLA PO SCH (20:04)
[2017-02-28] MEDS: ATORVASTATIN 20 MG TAB PO SCH (20:04)
[2017-03-01] MEDS: CHECK FENTANYL PATCH PLACEMENT SCH ×4 (01:02→23:41)
[2017-03-01 01:42] VITALS: BP 126/66; PULSE 86; TEMP 36.7; O2SAT 97
[2017-03-01 07:14] LABS: HEMATOCRIT 28.3 % (42-52); HEMOGLOBIN 8.9 g/dL (14.0-18.0); MEAN CELL VOLUME 86.3 fL (80-100); MEAN CORPUSCULAR HEMOGLOBIN 27.1 pg (25-34); MEAN CORPUSCULAR HGB CONC 31.4 g/dl (32-36); PLATELET COUNT 154 K/uL (130-400); RED CELL DISTRIBUTION WIDTH CV 16.4 % (11.5-14.5); RED CELL DISTRIBUTION WIDTH SD 51.6 fL (36.4-46.3); WHITE BLOOD COUNT 7.24 K/uL (4.8-10.8)
[2017-03-01 07:24] LABS: CALCIUM 8.8 mg/dl (8.5-10.1); CREATININE 0.94 mg/dl (0.60-1.40)
[2017-03-01 07:46] VITALS: BP 137/67; PULSE 62; TEMP 36.6; O2SAT 90
[2017-03-01] MEDS: DICLOFENAC SOD 1% GEL 100 GM TUBE EXT SCH ×4 (07:53→20:05)
[2017-03-01] MEDS: FINASTERIDE 5 MG TAB PO SCH (07:53)
[2017-03-01] MEDS: PANTOprazole SOD 40 MG TAB PO SCH ×2 (07:54→20:04)
[2017-03-01] MEDS: DILTIAZEM HCL 120 MG CAPCR PO SCH (07:54)
[2017-03-01] MEDS: CITALOPRAM 40 MG TAB PO SCH (07:54)
[2017-03-01] MEDS: MAGNESIUM OXIDE 400 MG TAB PO SCH ×2 (07:54→20:04)
[2017-03-01] MEDS: FUROSEMIDE 40 MG TAB PO SCH (07:55)
[2017-03-01] MEDS: LACTOBACILLUS ACIDOPHILUS (FLORANEX) TAB PO SCH ×3 (07:55→20:03)
[2017-03-01] MEDS: POTASSIUM CHLORIDE 20 MEQ TABCR PO SCH (07:55)
[2017-03-01 07:58] LABS: INR 1.3 (0.9-1.1)
[2017-03-01 08:00] VITALS: O2SAT 93
[2017-03-01] MEDS ORDERED: MAGNESIUM SULFATE 1GM / D5W 1 GM in PREMIXED IN D5W 100 ML IV STA (09:49)
--- NOTE | 2017-03-01 13:51 | Family Medicine Progress Note ---
Progress Note Date of Service Mar 01, 2017. Subjective Pt evaluation today including: conversation w/ patient, physical exam, chart review, lab review Pain: improved L hip pain; no discomfort reported this AM PO Intake: tolerating Voiding: no voiding problems This AM Mr. Angulo reported feeling better and less weak. Denied any L hip pain. Reported large, formed and not dark BM yesterday. Otherwise asymptomatic. Constitutional: No fever, No chills Respiratory: No shortness of breath Cardiovascular: No chest pain Abdomen: No pain, No nausea, No vomiting Musculoskeletal: No joint pain Male : No dysuria Medications Current Inpatient Medications Medications (Trade) Dose Ordered Sig/Shin Route Start Time Stop Time Status Last Admin Dose Admin Acetaminophen (Tylenol Tab) 650 mg Q4H PRN PO 02/23/17 23:45 03/25/17 23:44 02/24/17 21:13 650 MG Al Hydrox/Mg Hydrox/Simethicone (Maalox Max Susp) 15 ml Q4H PRN PO 02/23/17 23:45 03/25/17 23:44 Magnesium Hydroxide (Milk Of Magnesia Susp) 30 ml Q12H PRN PO 02/23/17 23:45 03/25/17 23:44 Ondansetron HCl (Zofran Inj) 4 mg Q6H PRN IV 02/23/17 23:45 03/25/17 23:44 02/26/17 05:06 4 MG Nitroglycerin (Nitrostat Tab) 0.4 mg UD PRN SL 02/23/17 23:45 03/25/17 23:44 Polyethylene (Miralax Powder Packet) 17 gm DAILY PRN PO 02/23/17 23:45 03/25/17 23:44 Atorvastatin Calcium (Lipitor Tab) 20 mg HS PO 02/24/17 21:00 03/26/17 20:59 02/28/17 20:04 20 MG Citalopram Hydrobromide (celeXA TAB) 40 mg DAILY PO 02/24/17 09:00 03/26/17 08:59 03/01/17 07:54 40 MG Diltiazem HCl (Cardizem Cd Cap) 120 mg DAILY PO 02/24/17 09:00 03/26/17 08:59 03/01/17 07:54 120 MG Docusate Sodium (coLACE CAP) 100 mg HS PO 02/24/17 21:00 03/26/17 20:59 02/28/17 20:04 100 MG Fentanyl (Duragesic Patch) 25 mcg Q3D@0900 TD 02/24/17 09:00 03/10/17 08:59 02/27/17 09:51 25 MCG Finasteride (Proscar Tab) 5 mg DAILY PO 02/24/17 09:00 03/26/17 08:59 03/01/17 07:53 5 MG Furosemide (Lasix Tab) 40 mg QAM PO 02/24/17 09:00 03/26/17 08:59 03/01/17 07:55 40 MG Lactobacillus Acidophilus (Floranex Tab) 3 tab TID PO 02/24/17 09:00 03/26/17 08:59 03/01/17 07:55 3 TAB Magnesium Oxide (Mag-Ox Tab) 400 mg BID PO 02/24/17 09:00 03/26/17 08:59 03/01/17 07:54 400 MG Potassium Chloride (Klor-Con Tab) 20 meq DAILY PO 02/24/17 09:00 03/26/17 08:59 03/01/17 07:55 20 MEQ Miscellaneous (Fentanyl Patch Remove & Waste) 1 ea Q3D@0859 N/A 02/24/17 08:59 03/26/17 08:58 02/27/17 08:59 1 EA Miscellaneous Information (Check Fentanyl Patch Placement) 1 ea QS N/A 02/24/17 00:45 03/26/17 00:44 03/01/17 07:50 1 EA Enteral Nutritional Formula (Boost) 1 can HS PO 02/24/17 21:00 03/26/17 20:59 02/28/17 20:04 1 CAN Glucose (Glucose 40% Gel) 15-30 GRAMS 15 GRAMS... UD PRN PO 02/26/17 08:30 03/28/17 08:29 Glucose (Glucose Chew Tab) 4-8 Tablets 4 Tabl... UD PRN PO 02/26/17 08:30 03/28/17 08:29 Dextrose (Dextrose 50% 50ML Syringe) 25-50ML OF 50% DW IV FOR... UD PRN IV 02/26/17 08:30 03/28/17 08:29 Glucagon (Glucagon Inj) 1 mg UD PRN SQ 02/26/17 08:30 03/28/17 08:29 Pantoprazole Sodium (Protonix Tab) 40 mg BID PO 02/27/17 09:00 03/29/17 08:59 03/01/17 07:54 40 MG Diclofenac Sodium (Voltaren 1% Top Gel) 1 appln QID EXT 02/26/17 17:00 03/28/17 16:59 03/01/17 07:53 1 APPLN Warfarin Sodium (Coumadin Tab) 6 mg DAILY@16 PO 03/01/17 16:00 03/31/17 15:59 Magnesium Oxide (Mag-Ox Tab) 400 mg QAM PO 03/02/17 08:00 04/01/17 07:59 Objective Vital Signs Date Time Temp Pulse Resp B/P (MAP) Pulse Ox O2 Delivery O2 Flow Rate FiO2 03/01/17 07:46 36.6 62 20 137/67 (90) 90 Nasal Cannula 2.0 03/01/17 01:42 36.7 86 20 126/66 (86) 97 2.0 03/01/17 01:30 Nasal Cannula 2.0 02/28/17 20:25 Nasal Cannula 2.0 02/28/17 16:00 98 Nasal Cannula 2.0 02/28/17 15:05 36.5 73 22 122/62 (82) 97 Nasal Cannula 2.0 Physical Exam General Appearance: no apparent distress Eyes: normal inspection Respiratory/Chest: lungs clear, + decreased breath sounds (improved aeration of lungs bilaterally) Cardiovascular: regular rate, rhythm, no JVD, no murmur Abdomen: normal bowel sounds, non tender, soft Extremities: + pertinent finding (No L greater trochanter TTP; leg length discrepancy) Neurologic/Psychiatric: alert, oriented x 3 Skin: + pertinent finding (multiple healing ecchymoses on bilateral arms ) Laboratory Results 03/01/17 06:21 03/01/17 06:21 Test 03/01/17 06:21 03/01/17 07:40 Red Blood Count 3.28 M/uL (4.7-6.1) Mean Corpuscular Volume 86.3 fL (80-100) Mean Corpuscular Hemoglobin 27.1 pg (25-34) Mean Corpuscular Hemoglobin Concent 31.4 g/dl (32-36) RDW Standard Deviation 51.6 fL (36.4-46.3) RDW Coefficient of Variation 16.4 % (11.5-14.5) Mean Platelet Volume 11.0 fL (7.4-10.4) Anion Gap 4.0 mmol/L (3-11) Est Creatinine Clear Calc Drug Dose 56.1 ml/min Estimated GFR () 83.6 Estimated GFR (Non- 72.1 BUN/Creatinine Ratio 25.2 (10-20) Calcium Level 8.8 mg/dl (8.5-10.1) Magnesium Level 1.7 mg/dl (1.8-2.4) Prothrombin Time 13.7 SECONDS (9.0-12.0) Prothromb Time International Ratio 1.3 (0.9-1.1) Assessment and Plan Mr. Angulo is an 86yoM with hx of bladder and prostate cancer, atrial fibrillation, CAD s/p stent placement, and hypertension who presented with weakness, AMS, INR of 7 and melena. Currently with INR of 1.3 and improved weakness/AMS and melena. Hypoxia/New Oxygen Demand - unclear cause - patient not on oxygen at home - requiring 2L of oxygen via nasal cannula - wean/dc if O2 sat >= 90% - CXR 02/24 showed mild atelectasis and stable cardiomegaly - no evidence of infection - repeat cxr 02/27 - increasing L basilar opacities with low lung volumes and chronic interstitial thickening - Lasix 20mg IV once 02/28 to rule out pulmonary edema/volume overload as etiology - improved aeration but increased BUN and bicarb unlikely to be due to diastolic CHF - consider chest CT if unable to wear off O2 - 2 step on d/c Hypomagnesemia - Ma 1.7 today - repleted with 1g Mag IV - Ordered Mag Oxide PO 400mg daily Supratherapeutic INR/acute GI blood loss - resolved with stable H/H - Given Vitamin K and FFP at [facility] for INR of 7 - possible interaction between warfarin and cipro - INR currently 1.3 - GI consulted - EGD - hiatal hernia, no source of bleeding - colonoscopy - diverticulosis in sigmoid colon, 5mm polyp in the ascending colon (removed - consistent with tubular adenoma on pathology) but no active sources of bleeding - continue PPI and follow Hb daily - Hgb currently stable and improving at 8.9 - continue protonix 40 mg BID - Continue Coumadin 6mg daily - stop if rebleeds and consider outpt capsule endoscopy Altered Mental Status secondary to pain vs. infection - resolved - Head CT at [facility] ruled out acute hemorrhage or infarct - Unable to do MRI due to pacemaker. - urine culture negative - possibly due to prior ciprofloxacin use? 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 Awaiting confirmation. Resident Physician Supervision Note: I was present with PGY1 Dr. Manuel Davey during the history and exam. I discussed the case with the resident and agree with the findings and plan as documented in the note. Any exceptions or clarifications are listed here: I do suspect maybe a small element of acute/chronic diastolic CHF as cause of prior O2 requirement. Left hip pain has not recurred. Denies cough. Denies dyspnea. Feels good. VSS afebrile gen - nad mouth - MMM neck - no JVD heart - RRR lungs - bibasilar dry rales - modest/improved, no wheeze; airation better today abd - soft, NT ext - no edema musculo - left hip - nontender to palpation over the trochanteric region A/P: 1. encephalopathy - resolved. 2. suspected acute blood loss anemia - s/p EGD and colonoscopy without source of bleeding. H/h stable x multiple days. coumadin resumed 02/28/17. if re-bleeding occurs then stop coumadin and consider nuclear bleeding scan. outpatient capsule endoscopy also possibility. 3. possible acute/chronic diastolic CHF - extra dose of lasix 20mg this afternoon. BMP/mag in am. 4. frequent falls, weakness - [facility] referral in process ([facility] ) likely needs personal care service long-term following rehab 5. hypoxia / o2 requirement - diastolic CHF? overall improved as o2 sats today , in room air, were 92-93%. 6. left hip Trochanteric bursitis - s/p injection with resolution of symptoms. awaiting transfer to rehab - likely Thursday Documented By: Joey Olivier MD Resident Involvement: Resident Care Provided Care Provided: Adult Hospital Medicine
[2017-03-01 16:00] VITALS: O2SAT 93
[2017-03-01 16:16] VITALS: BP 115/57; PULSE 71; TEMP 36.6; O2SAT 91
[2017-03-01] MEDS: WARFARIN SOD 6 MG TAB PO SCH (16:45)
[2017-03-01] MEDS ORDERED: MAGNESIUM OXIDE 400 MG TAB PO ONE (18:00)
[2017-03-01] MEDS ORDERED: FUROSEMIDE 40 MG TAB PO ONE (18:00)
[2017-03-01] MEDS: ATORVASTATIN 20 MG TAB PO SCH (20:05)
[2017-03-01] MEDS: DOCUSATE SODIUM 100 MG CAP PO SCH (20:05)
[2017-03-01] MEDS: BOOST VANILLA PO SCH (20:05)
[2017-03-02 00:40] VITALS: BP 128/78; PULSE 66; TEMP 36.7; O2SAT 93
[2017-03-02 05:34] LABS: BASO % 0.1 %; BASO ABS # 0.01 K/uL (0-0.2); EOS % 0.5 %; EOS ABS # 0.04 K/uL (0-0.5); HEMATOCRIT 29.5 % (42-52); HEMOGLOBIN 9.4 g/dL (14.0-18.0); IG# 0.05 K/uL (0.00-0.02); LYMPH % 13.9 %; LYMPH ABS # 1.06 K/uL (1.2-3.4); MEAN CORPUSCULAR HEMOGLOBIN 27.4 pg (25-34); MEAN CORPUSCULAR HGB CONC 31.9 g/dl (32-36); MEAN PLATELET VOLUME 11.3 fL (7.4-10.4); MONO % 9.4 %; MONO ABS # 0.72 K/uL (0.11-0.59); NEUT % 75.4 %; NEUT ABS # 5.77 K/uL (1.4-6.5); NUCLEATED RED BLOOD CELL ABS 0.03 K/uL (0-0); PLATELET COUNT 151 K/uL (130-400); RED CELL DISTRIBUTION WIDTH CV 16.6 % (11.5-14.5); RED CELL DISTRIBUTION WIDTH SD 51.2 fL (36.4-46.3); WHITE BLOOD COUNT 7.65 K/uL (4.8-10.8)
[2017-03-02 05:45] LABS: INR 1.6 (0.9-1.1)
[2017-03-02 05:51] LABS: CALCIUM 8.8 mg/dl (8.5-10.1); CREATININE 1.06 mg/dl (0.60-1.40)
[2017-03-02 07:25] VITALS: BP 147/72; PULSE 61; TEMP 37; O2SAT 95
[2017-03-02] MEDS: MAGNESIUM OXIDE 400 MG TAB PO SCH ×3 (08:14→21:00)
[2017-03-02] MEDS: CHECK FENTANYL PATCH PLACEMENT SCH ×2 (08:14→15:51)
[2017-03-02] MEDS: DICLOFENAC SOD 1% GEL 100 GM TUBE EXT SCH ×4 (08:14→21:00)
[2017-03-02] MEDS: CITALOPRAM 40 MG TAB PO SCH (08:15)
[2017-03-02] MEDS: FUROSEMIDE 40 MG TAB PO SCH (08:15)
[2017-03-02] MEDS: FINASTERIDE 5 MG TAB PO SCH (08:16)
[2017-03-02] MEDS: LACTOBACILLUS ACIDOPHILUS (FLORANEX) TAB PO SCH ×3 (08:16→21:00)
[2017-03-02] MEDS: POTASSIUM CHLORIDE 20 MEQ TABCR PO SCH (08:16)
[2017-03-02] MEDS: PANTOprazole SOD 40 MG TAB PO SCH ×2 (08:17→21:00)
[2017-03-02] MEDS: DILTIAZEM HCL 120 MG CAPCR PO SCH (08:17)
[2017-03-02] MEDS: FENTANYL PATCH REMOVE & WASTE SCH (08:59)
[2017-03-02] MEDS: FENTANYL 25 MCG/HR TDSY TD SCH (12:23)
[2017-03-02 15:45] VITALS: BP 128/67; PULSE 66; TEMP 36.4; O2SAT 93
[2017-03-02] MEDS: WARFARIN SOD 6 MG TAB PO SCH (15:51)
[2017-03-02] MEDS: BOOST VANILLA PO SCH (21:01)
[2017-03-02] MEDS: ATORVASTATIN 20 MG TAB PO SCH (21:01)
[2017-03-02] MEDS: DOCUSATE SODIUM 100 MG CAP PO SCH (21:01)
--- NOTE | 2017-03-02 21:28 | Family Medicine Progress Note ---
Progress Note Date of Service Mar 02, 2017. Subjective Pt evaluation today including: conversation w/ patient, physical exam, chart review, lab review, review of studies, review of inpatient medication list Pain: Patient declines pain today PO Intake: Tolerating PO diet well Voiding: no voiding problems Patient reports no change in symptoms, understands because of holiday he cannot leave to [facility]. Constitutional: No fever, No chills, No sweats, No weight loss, No weakness , No fatigue, No problem reported ENT: No hearing loss, No unusual epistaxis, No nasal symptoms, No sore throat, No tinnitus, No dental problems, No trouble swallowing, No problem reported Respiratory: + shortness of breath, No cough, No sputum, No wheezing, No dyspnea on exertion, No dyspnea at rest, No hemoptysis, No problem reported Cardiovascular: No chest pain, No orthopnea, No PND, No edema, No claudication, No palpitations, No problem reported Abdomen: No pain, No nausea, No vomiting, No diarrhea, No constipation, No GI bleeding, No problem reported Musculoskeletal: + joint pain (hip, resolving) Heme: + abnormal bleeding/bruising (resolving) All Other Systems: Reviewed and Negative Medications Current Inpatient Medications Medications (Trade) Dose Ordered Sig/Shin Route Start Time Stop Time Status Last Admin Dose Admin Acetaminophen (Tylenol Tab) 650 mg Q4H PRN PO 02/23/17 23:45 03/25/17 23:44 02/24/17 21:13 650 MG Al Hydrox/Mg Hydrox/Simethicone (Maalox Max Susp) 15 ml Q4H PRN PO 02/23/17 23:45 03/25/17 23:44 Magnesium Hydroxide (Milk Of Magnesia Susp) 30 ml Q12H PRN PO 02/23/17 23:45 03/25/17 23:44 Ondansetron HCl (Zofran Inj) 4 mg Q6H PRN IV 02/23/17 23:45 03/25/17 23:44 02/26/17 05:06 4 MG Nitroglycerin (Nitrostat Tab) 0.4 mg UD PRN SL 02/23/17 23:45 03/25/17 23:44 Polyethylene (Miralax Powder Packet) 17 gm DAILY PRN PO 02/23/17 23:45 03/25/17 23:44 Atorvastatin Calcium (Lipitor Tab) 20 mg HS PO 02/24/17 21:00 03/26/17 20:59 03/02/17 21:01 20 MG Citalopram Hydrobromide (celeXA TAB) 40 mg DAILY PO 02/24/17 09:00 03/26/17 08:59 03/02/17 08:15 40 MG Diltiazem HCl (Cardizem Cd Cap) 120 mg DAILY PO 02/24/17 09:00 03/26/17 08:59 03/02/17 08:17 120 MG Docusate Sodium (coLACE CAP) 100 mg HS PO 02/24/17 21:00 03/26/17 20:59 03/02/17 21:01 100 MG Fentanyl (Duragesic Patch) 25 mcg Q3D@0900 TD 02/24/17 09:00 03/10/17 08:59 03/02/17 12:23 25 MCG Finasteride (Proscar Tab) 5 mg DAILY PO 02/24/17 09:00 03/26/17 08:59 03/02/17 08:16 5 MG Furosemide (Lasix Tab) 40 mg QAM PO 02/24/17 09:00 03/26/17 08:59 03/02/17 08:15 40 MG Lactobacillus Acidophilus (Floranex Tab) 3 tab TID PO 02/24/17 09:00 03/26/17 08:59 03/02/17 21:00 3 TAB Magnesium Oxide (Mag-Ox Tab) 400 mg BID PO 02/24/17 09:00 03/26/17 08:59 03/02/17 21:00 400 MG Potassium Chloride (Klor-Con Tab) 20 meq DAILY PO 02/24/17 09:00 03/26/17 08:59 03/02/17 08:16 20 MEQ Miscellaneous (Fentanyl Patch Remove & Waste) 1 ea Q3D@0859 N/A 02/24/17 08:59 03/26/17 08:58 03/02/17 08:59 1 EA Miscellaneous Information (Check Fentanyl Patch Placement) 1 ea QS N/A 02/24/17 00:45 03/26/17 00:44 03/02/17 15:51 1 EA Enteral Nutritional Formula (Boost) 1 can HS PO 02/24/17 21:00 03/26/17 20:59 12/25/17 21:01 1 CAN Glucose (Glucose 40% Gel) 15-30 GRAMS 15 GRAMS... UD PRN PO 02/26/17 08:30 03/28/17 08:29 Glucose (Glucose Chew Tab) 4-8 Tablets 4 Tabl... UD PRN PO 02/26/17 08:30 03/28/17 08:29 Dextrose (Dextrose 50% 50ML Syringe) 25-50ML OF 50% DW IV FOR... UD PRN IV 02/26/17 08:30 03/28/17 08:29 Glucagon (Glucagon Inj) 1 mg UD PRN SQ 02/26/17 08:30 03/28/17 08:29 Pantoprazole Sodium (Protonix Tab) 40 mg BID PO 02/27/17 09:00 03/29/17 08:59 03/02/17 21:00 40 MG Diclofenac Sodium (Voltaren 1% Top Gel) 1 appln QID EXT 02/26/17 17:00 03/28/17 16:59 03/02/17 21:00 1 APPLN Warfarin Sodium (Coumadin Tab) 6 mg DAILY@16 PO 03/01/17 16:00 03/31/17 15:59 03/02/17 15:51 6 MG Magnesium Oxide (Mag-Ox Tab) 400 mg QAM PO 03/02/17 08:00 04/01/17 07:59 03/02/17 08:16 400 MG Ferrous Gluconate (Ferrous Gluconate Tab) 324 mg QAM PO 03/03/17 08:00 04/02/17 07:59 Objective Vital Signs Date Time Temp Pulse Resp B/P (MAP) Pulse Ox O2 Delivery O2 Flow Rate FiO2 03/02/17 16:00 Room Air 03/02/17 15:45 36.4 66 16 128/67 (87) 93 Room Air 03/02/17 08:00 Room Air 03/02/17 07:25 37.0 61 18 147/72 (97) 95 Room Air 03/02/17 00:40 36.7 66 18 128/78 (95) 93 03/02/17 00:00 Room Air Physical Exam General Appearance: WD/WN, no apparent distress Eyes: normal inspection, PERRL, EOMI ENT: hearing grossly normal, TMs normal, pharynx normal Neck: supple, no adenopathy, no JVD, trachea midline Respiratory/Chest: chest non-tender, no respiratory distress, no accessory muscle use, + crackles (LLL) Cardiovascular: regular rate, rhythm, no edema, no JVD, no murmur Abdomen: normal bowel sounds, non tender, soft Extremities: normal range of motion, no pedal edema, + pertinent finding (leg length discrepancy) 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65 K/uL (4.8-10.8) Red Blood Count 3.43 M/uL (4.7-6.1) Hemoglobin 9.4 g/dL (14.0-18.0) Hematocrit 29.5 % (42-52) Mean Corpuscular Volume 86.0 fL (80-100) Mean Corpuscular Hemoglobin 27.4 pg (25-34) Mean Corpuscular Hemoglobin Concent 31.9 g/dl (32-36) Platelet Count 151 K/uL (130-400) Mean Platelet Volume 11.3 fL (7.4-10.4) Neutrophils (%) (Auto) 75.4 % Lymphocytes (%) (Auto) 13.9 % Monocytes (%) (Auto) 9.4 % Eosinophils (%) (Auto) 0.5 % Basophils (%) (Auto) 0.1 % Neutrophils # (Auto) 5.77 K/uL (1.4-6.5) Lymphocytes # (Auto) 1.06 K/uL (1.2-3.4) Monocytes # (Auto) 0.72 K/uL (0.11-0.59) Eosinophils # (Auto) 0.04 K/uL (0-0.5) Basophils # (Auto) 0.01 K/uL (0-0.2) RDW Standard Deviation 51.2 fL (36.4-46.3) RDW Coefficient of Variation 16.6 % (11.5-14.5) Immature Granulocyte % (Auto) 0.7 % Immature Granulocyte # (Auto) 0.05 K/uL (0.00-0.02) Nucleated RBC Absolute Count (auto) 0.03 K/uL (0-0) Nucleated Red Blood Cells % 0.3 % Prothrombin Time 16.9 SECONDS (9.0-12.0) Prothromb Time International Ratio 1.6 (0.9-1.1) Anion Gap 3.0 mmol/L (3-11) Est Creatinine Clear Calc Drug Dose 49.7 ml/min Estimated GFR () 72.3 Estimated GFR (Non- 62.4 BUN/Creatinine Ratio 24.0 (10-20) Calcium Level 8.8 mg/dl (8.5-10.1) Magnesium Level 1.9 mg/dl (1.8-2.4) Assessment and Plan Mr. Angulo is an 86yoM with hx of bladder and prostate cancer, atrial fibrillation, CAD s/p stent placement, and hypertension who presented with weakness, AMS, INR of 7 and melena. Currently with INR of 1.6 and improved weakness/AMS and melena. Hypoxia/New Oxygen Demand - unclear cause - patient not on oxygen at home - now 95% RA - CXR 02/24 showed mild atelectasis and stable cardiomegaly - no evidence of infection - repeat cxr 02/27 - increasing L basilar opacities with low lung volumes and chronic interstitial thickening - Breath sounds improved today - Ordered incentive spirometry - Will forgo 2 step on DC as patient relatively non-ambulatory Hypomagnesemia - Mg 1.9 today - Continue Mag Oxide PO 400mg daily Supratherapeutic INR/acute GI blood loss - resolved with stable H/H - Given Vitamin K and FFP at [facility] for INR of 7 - possible interaction between warfarin and cipro - INR currently 1.6 - GI consulted - EGD - hiatal hernia, no source of bleeding - colonoscopy - diverticulosis in sigmoid colon, 5mm polyp in the ascending colon (removed - consistent with tubular adenoma on pathology) but no active sources of bleeding - continue PPI and follow Hb daily - Due to patient's age, no need for further 5 yr colonoscopy follow up - Hgb currently stable and improving at 9.4 - continue protonix 40 mg BID - Continue Coumadin 6mg daily - stop if rebleeds and consider outpt capsule endoscopy - Start OD Ferrous gluconate 324 Altered Mental Status secondary to pain vs. infection - resolved - Head CT at [place] ruled out acute hemorrhage or infarct - Unable to perform MRI due to pacemaker. 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 Awaiting confirmation. Resident Physician Supervision Note: I was present with PGY1 Dr. Marilu Gaytan during the history and exam. I discussed the case with the resident and agree with the findings and plan as documented in the note. Any exceptions or clarifications are listed here: none. Pt feels well and denies any complaints. Left hip pain has not recurred. No dyspnea or cough. Good appetite. VSS afebrile gen - nad mouth - MMM neck - no JVD heart - RRR lungs - bibasilar rales nearly resolved; only faint, scattered crackle heard abd - soft, NT ext - no edema musculo - left hip - nontender to palpation once again A/P: 1. encephalopathy - resolved. Could have been from prior UTI (was treated at home prior to admission) vs toxic cause from cipro vs other. Negative head CT at [facility] prior to tx to [facility]. 2. suspected acute blood loss anemia - s/p EGD and colonoscopy this admission without source of bleeding. H/h stable x multiple days. coumadin resumed 02/28/17. if re-bleeding occurs then stop coumadin and consider nuclear bleeding scan. outpatient capsule endoscopy also possibility. Fe supplementation initiated Check Hb in am 3. acute/chronic diastolic CHF - resolved clinically with rise in BUN/Cr. Stop additional diuresis; resume outpatient lasix dosage of 40mg qam. 4. frequent falls, weakness - [facility] referral in process ([facility] ) likely needs personal care service long-term following rehab 5. CKD stage 3 6. left hip Trochanteric bursitis - s/p injection with resolution of symptoms. 7. a. fib - coumadin restarted; INR 1.6 today; no change in coumadin dosing, INR in am awaiting transfer to rehab - likely Thursday pending insurance auth Documented By: Joey Olivier MD Resident Tracking Resident Involvement: Resident Care Provided Care Provided: Adult Hospital Medicine
[2017-03-02] MEDS: ONDANSETRON INJ 2 MG/ML 2 ML VIAL IV PRN (22:35)
[2017-03-02 23:06] VITALS: BP 164/72; PULSE 70; TEMP 36.5; O2SAT 92
[2017-03-03] MEDS: DICLOFENAC SOD 1% GEL 100 GM TUBE EXT SCH ×5 (02:18→20:21)
[2017-03-03 06:42] LABS: INR 2.1 (0.9-1.1)
[2017-03-03 07:05] LABS: CREATININE 1.18 mg/dl (0.60-1.40); POTASSIUM 4.2 mmol/L (3.5-5.1)
[2017-03-03 07:16] VITALS: BP 136/63; PULSE 71; TEMP 36.7; O2SAT 93
[2017-03-03] MEDS: CHECK FENTANYL PATCH PLACEMENT SCH ×4 (08:00→23:41)
[2017-03-03] MEDS: DILTIAZEM HCL 120 MG CAPCR PO SCH (08:34)
[2017-03-03] MEDS: CITALOPRAM 40 MG TAB PO SCH (08:34)
[2017-03-03] MEDS: FUROSEMIDE 40 MG TAB PO SCH (08:35)
[2017-03-03] MEDS: POTASSIUM CHLORIDE 20 MEQ TABCR PO SCH (08:35)
[2017-03-03] MEDS: LACTOBACILLUS ACIDOPHILUS (FLORANEX) TAB PO SCH ×3 (08:35→20:22)
[2017-03-03] MEDS: MAGNESIUM OXIDE 400 MG TAB PO SCH ×3 (08:35→20:23)
[2017-03-03] MEDS: FINASTERIDE 5 MG TAB PO SCH (08:36)
[2017-03-03] MEDS: PANTOprazole SOD 40 MG TAB PO SCH ×2 (08:36→20:22)
[2017-03-03] MEDS: FERROUS GLUCONATE 324 MG TAB PO SCH (08:40)
[2017-03-03] MEDS ORDERED: CMD6 PO (12:05)
[2017-03-03] MEDS ORDERED: MAGN1TAB19 PO (12:08)
[2017-03-03 15:14] VITALS: BP 115/70; PULSE 69; TEMP 36.7; O2SAT 95
--- NOTE | 2017-03-03 15:31 | Discharge Instructions ---
Discharge Instructions Date of Service Mar 03, 2017. Admission Reason for Admission: Ams, Elevated Inr, Gi Bleed Discharge Discharge Diagnosis / Problem: Supratherapeutic INR, Acute GI bleed, Altered mental status Discharge Goals Goal(s): Decrease discomfort, Improve function, Increase independence Activity Recommendations Activity Limitations: per Instructions/Follow-up section . Instructions / Follow-Up Instructions / Follow-Up During this visit to the hospital, Mr. Angulo was treated for high INR and an acute gastrointestinal blood loss. Hypomagnesemia in house - Mg 1.9 yesterday - Continue Mag Oxide PO 400mg daily for 4 weeks, then reassess - Handwritten Rx given for repeat lab check of magnesium around March 18 2017 Supratherapeutic INR/acute GI blood loss - resolved with stable H/H - Given Vitamin K and FFP at [facility] for INR of 7 - possible interaction between warfarin and cipro - INR currently 2.1 on 6mg daily; continue this treatment, and stop if he rebleeds, in which case consider outpatient capsule study - GI consulted - EGD - hiatal hernia, no source of bleeding - colonoscopy - diverticulosis in sigmoid colon, 5mm polyp in the ascending colon (removed - consistent with tubular adenoma on pathology) but no active sources of bleeding - Due to patient's age, no need for further 5 yr colonoscopy follow up - Hgb currently stable and improving at 9.9 - OD Ferrous gluconate 324, sten stop after 2 weeks and reassess Left trochanteric bursitis secondary to Fall - improved s/p steroid injection - apply heat and voltaren gel to area - steroid injection into left trochanteric bursa performed in house on 02/27/17 CKD stage 3 - at baseline, creatinine 1.18 today H/o prostate ca/bladder ca- stable BPH- continue finasteride Cad/HTN- continue aspirin 81, lipitor 20, lasix 40 Afib s/p Pacemaker - NSR, restarted on warfarin 6mg daily based on home dosage Chronic Pain - continue Fentanyl patch - continue Citalopram Current Hospital Diet Patient's current hospital diet: AHA Diet (Heart Healthy) Discharge Diet Recommended Diet: AHA Diet (Heart Healthy) Procedures Procedures Performed: COLONOSCOPY, POLYPECTOMY Pending Studies Studies pending at discharge: no Medical Emergencies . Who to Call and When: Medical Emergencies: If at any time you feel your situation is an emergency, please call 911 immediately. . Non-Emergent Contact Non-Emergency issues call your: Primary Care Provider . . "Provider Documentation" section prepared by Marilu Gaytan. . VTE Core Measure Inpt VTE Proph given/why not?: Treatment not indicated
[2017-03-03] MEDS: WARFARIN SOD 6 MG TAB PO SCH (17:09)
[2017-03-03] MEDS: ATORVASTATIN 20 MG TAB PO SCH (20:22)
[2017-03-03] MEDS: BOOST VANILLA PO SCH (20:23)
[2017-03-03] MEDS: DOCUSATE SODIUM 100 MG CAP PO SCH (20:23)
[2017-03-03 22:48] VITALS: BP 145/68; PULSE 66; TEMP 36.7; O2SAT 97
--- NOTE | 2017-03-03 22:53 | Family Medicine Progress Note ---
Progress Note Date of Service Mar 03, 2017. Subjective Pt evaluation today including: conversation w/ patient, physical exam, lab review Pain: no acute changes in pain level PO Intake: tolerating well Voiding: no voiding problems Constitutional: No fever, No chills, No sweats, No weight loss, No weakness , No fatigue, No problem reported Abdomen: No pain, No nausea, No vomiting, No diarrhea, No constipation, No GI bleeding, No problem reported Musculoskeletal: + joint pain All Other Systems: Reviewed and Negative Medications Current Inpatient Medications Medications (Trade) Dose Ordered Sig/Shin Route Start Time Stop Time Status Last Admin Dose Admin Acetaminophen (Tylenol Tab) 650 mg Q4H PRN PO 02/23/17 23:45 03/25/17 23:44 02/24/17 21:13 650 MG Al Hydrox/Mg Hydrox/Simethicone (Maalox Max Susp) 15 ml Q4H PRN PO 02/23/17 23:45 03/25/17 23:44 Magnesium Hydroxide (Milk Of Magnesia Susp) 30 ml Q12H PRN PO 02/23/17 23:45 03/25/17 23:44 Ondansetron HCl (Zofran Inj) 4 mg Q6H PRN IV 02/23/17 23:45 03/25/17 23:44 03/02/17 22:35 4 MG Nitroglycerin (Nitrostat Tab) 0.4 mg UD PRN SL 02/23/17 23:45 03/25/17 23:44 Polyethylene (Miralax Powder Packet) 17 gm DAILY PRN PO 02/23/17 23:45 03/25/17 23:44 Atorvastatin Calcium (Lipitor Tab) 20 mg HS PO 02/24/17 21:00 03/26/17 20:59 03/03/17 20:22 20 MG Citalopram Hydrobromide (celeXA TAB) 40 mg DAILY PO 02/24/17 09:00 03/26/17 08:59 03/03/17 08:34 40 MG Diltiazem HCl (Cardizem Cd Cap) 120 mg DAILY PO 02/24/17 09:00 03/26/17 08:59 03/03/17 08:34 120 MG Docusate Sodium (coLACE CAP) 100 mg HS PO 02/24/17 21:00 03/26/17 20:59 03/03/17 20:23 100 MG Fentanyl (Duragesic Patch) 25 mcg Q3D@0900 TD 02/24/17 09:00 03/10/17 08:59 03/02/17 12:23 25 MCG Finasteride (Proscar Tab) 5 mg DAILY PO 02/24/17 09:00 03/26/17 08:59 03/03/17 08:36 5 MG Furosemide (Lasix Tab) 40 mg QAM PO 02/24/17 09:00 03/26/17 08:59 03/03/17 08:35 40 MG Lactobacillus Acidophilus (Floranex Tab) 3 tab TID PO 02/24/17 09:00 03/26/17 08:59 03/03/17 20:22 3 TAB Magnesium Oxide (Mag-Ox Tab) 400 mg BID PO 02/24/17 09:00 03/26/17 08:59 03/03/17 20:23 400 MG Potassium Chloride (Klor-Con Tab) 20 meq DAILY PO 02/24/17 09:00 03/26/17 08:59 03/03/17 08:35 20 MEQ Miscellaneous (Fentanyl Patch Remove & Waste) 1 ea Q3D@0859 N/A 02/24/17 08:59 03/26/17 08:58 03/02/17 08:59 1 EA Miscellaneous Information (Check Fentanyl Patch Placement) 1 ea QS N/A 02/24/17 00:45 03/26/17 00:44 03/03/17 16:00 1 EA Enteral Nutritional Formula (Boost) 1 can HS PO 02/24/17 21:00 03/26/17 20:59 03/03/17 20:23 1 CAN Glucose (Glucose 40% Gel) 15-30 GRAMS 15 GRAMS... UD PRN PO 02/26/17 08:30 03/28/17 08:29 Glucose (Glucose Chew Tab) 4-8 Tablets 4 Tabl... UD PRN PO 02/26/17 08:30 03/28/17 08:29 Dextrose (Dextrose 50% 50ML Syringe) 25-50ML OF 50% DW IV FOR... UD PRN IV 02/26/17 08:30 03/28/17 08:29 Glucagon (Glucagon Inj) 1 mg UD PRN SQ 02/26/17 08:30 03/28/17 08:29 Pantoprazole Sodium (Protonix Tab) 40 mg BID PO 02/27/17 09:00 03/29/17 08:59 03/03/17 20:22 40 MG Diclofenac Sodium (Voltaren 1% Top Gel) 1 appln QID EXT 02/26/17 17:00 03/28/17 16:59 03/03/17 20:21 1 APPLN Warfarin Sodium (Coumadin Tab) 6 mg DAILY@16 PO 03/01/17 16:00 03/31/17 15:59 03/03/17 17:09 6 MG Magnesium Oxide (Mag-Ox Tab) 400 mg QAM PO 03/02/17 08:00 04/01/17 07:59 03/03/17 08:36 400 MG Ferrous Gluconate (Ferrous Gluconate Tab) 324 mg QAM PO 03/03/17 08:00 04/02/17 07:59 03/03/17 08:40 324 MG Objective Vital Signs Date Time Temp Pulse Resp B/P (MAP) Pulse Ox O2 Delivery O2 Flow Rate FiO2 03/03/17 19:50 Room Air 03/03/17 15:14 36.7 69 20 115/70 (85) 95 Room Air 03/03/17 08:00 Room Air 03/03/17 07:16 36.7 71 18 136/63 (87) 93 Room Air 03/02/17 23:30 Room Air 03/02/17 23:06 36.5 70 16 164/72 (102) 92 Room Air Physical Exam General Appearance: WD/WN, no apparent distress Respiratory/Chest: chest non-tender, no respiratory distress, no accessory muscle use, + decreased breath sounds (Left lower lobe), + crackles (LLL) Cardiovascular: regular rate, rhythm, no edema, no gallop, no JVD, no murmur Abdomen: normal bowel sounds, non tender, soft Neurologic/Psychiatric: 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, no motor/sensory deficits, alert, normal mood/affect, oriented x 3 Skin: normal color Laboratory Results 03/03/17 06:11 03/03/17 06:11 Test 03/03/17 06:11 Prothrombin Time 22.2 SECONDS (9.0-12.0) Prothromb Time International Ratio 2.1 (0.9-1.1) Anion Gap 6.0 mmol/L (3-11) Est Creatinine Clear Calc Drug Dose 44.7 ml/min Estimated GFR () 63.5 Estimated GFR (Non- 54.8 BUN/Creatinine Ratio 24.7 (10-20) Calcium Level 9.0 mg/dl (8.5-10.1) Assessment and Plan 86 yo M admitted for acute GI bleed and supratherapeutic INR of 7.0 Hypomagnesemia in house - Mg 1.9 yesterday - Continue Mag Oxide PO 400mg daily for 4 weeks, then reassess - Handwritten Rx given for repeat lab check of magnesium around March 18 2017 Supratherapeutic INR/acute GI blood loss - resolved with stable H/H - Given Vitamin K and FFP at [facility] for INR of 7 - possible interaction between warfarin and cipro - INR currently 2.1 on 6mg daily; continue this treatment, and stop if he rebleeds, in which case consider outpatient capsule study - GI consulted - EGD - hiatal hernia, no source of bleeding - colonoscopy - diverticulosis in sigmoid colon, 5mm polyp in the ascending colon (removed - consistent with tubular adenoma on pathology) but no active sources of bleeding - Due to patient's age, no need for further 5 yr colonoscopy follow up - Hgb currently stable and improving at 9.9 - OD Ferrous gluconate 324, sten stop after 2 weeks and reassess Left trochanteric bursitis secondary to Fall - improved s/p steroid injection - apply heat and voltaren gel to area - steroid injection into left trochanteric bursa performed in house on 02/27/17 CKD stage 3 - at baseline, creatinine 1.18 today H/o prostate ca/bladder ca- stable BPH- continue finasteride Cad/HTN- continue aspirin 81, lipitor 20, lasix 40 Afib s/p Pacemaker - NSR, restarted on warfarin 6mg daily based on home dosage Chronic Pain - continue Fentanyl patch - continue Citalopram Code: DNR DVTP: coumadin Dispo: awaiting placement at [facility] Resident Physician Supervision Note: I interviewed and examined the patient. Discussed with Dr. Gaytan and agree with findings and plan as documented in the note. Any exceptions or clarifications are listed here: None Documented By: Donald Zamorano feeling ok ready to go to rehab, awaiting insurance approvals tony noted nad breathing unlabored no pallor or icterus weakness -for rehab AMS - ?polypharmacy - improved coumadin coagulopathy w GI bleeding - now stable. continue to follow stable for rehab, awaiting approval Resident Tracking Resident Involvement: Resident Care Provided Care Provided: Adult Hospital Medicine
[2017-03-04 06:45] LABS: BASO % 0.1 %; BASO ABS # 0.01 K/uL (0-0.2); EOS % 0.7 %; EOS ABS # 0.05 K/uL (0-0.5); HEMATOCRIT 31.5 % (42-52); HEMOGLOBIN 9.8 g/dL (14.0-18.0); IG# 0.07 K/uL (0.00-0.02); LYMPH % 17.5 %; LYMPH ABS # 1.25 K/uL (1.2-3.4); MEAN CELL VOLUME 87.5 fL (80-100); MEAN CORPUSCULAR HEMOGLOBIN 27.2 pg (25-34); MEAN CORPUSCULAR HGB CONC 31.1 g/dl (32-36); MEAN PLATELET VOLUME 11.5 fL (7.4-10.4); MONO ABS # 0.71 K/uL (0.11-0.59); NEUT % 70.7 %; NEUT ABS # 5.04 K/uL (1.4-6.5); PLATELET COUNT 157 K/uL (130-400); RED CELL DISTRIBUTION WIDTH CV 17.6 % (11.5-14.5); RED CELL DISTRIBUTION WIDTH SD 54.1 fL (36.4-46.3); WHITE BLOOD COUNT 7.13 K/uL (4.8-10.8)
[2017-03-04 06:47] LABS: INR 2.4 (0.9-1.1)
[2017-03-04 07:16] LABS: CALCIUM 8.8 mg/dl (8.5-10.1); CREATININE 1.24 mg/dl (0.60-1.40); POTASSIUM 4.4 mmol/L (3.5-5.1)
[2017-03-04 07:30] VITALS: BP 160/74; PULSE 62; TEMP 36.5; O2SAT 95
[2017-03-04] MEDS: DICLOFENAC SOD 1% GEL 100 GM TUBE EXT SCH ×4 (08:00→20:00)
[2017-03-04] MEDS: CHECK FENTANYL PATCH PLACEMENT SCH ×3 (08:09→23:37)
[2017-03-04] MEDS: CITALOPRAM 40 MG TAB PO SCH (08:11)
[2017-03-04] MEDS: MAGNESIUM OXIDE 400 MG TAB PO SCH ×3 (08:11→20:14)
[2017-03-04] MEDS: FUROSEMIDE 40 MG TAB PO SCH (08:11)
[2017-03-04] MEDS: POTASSIUM CHLORIDE 20 MEQ TABCR PO SCH (08:11)
[2017-03-04] MEDS: FERROUS GLUCONATE 324 MG TAB PO SCH (08:11)
[2017-03-04] MEDS: LACTOBACILLUS ACIDOPHILUS (FLORANEX) TAB PO SCH ×3 (08:11→20:14)
[2017-03-04] MEDS: PANTOprazole SOD 40 MG TAB PO SCH ×2 (08:11→20:14)
[2017-03-04] MEDS: FINASTERIDE 5 MG TAB PO SCH (08:11)
[2017-03-04] MEDS: DILTIAZEM HCL 120 MG CAPCR PO SCH (08:12)
[2017-03-04 08:15] VITALS: O2SAT 95
[2017-03-04 15:29] VITALS: BP 109/67; PULSE 71; TEMP 36.8; O2SAT 97
[2017-03-04] MEDS: WARFARIN SOD 6 MG TAB PO SCH (16:13)
[2017-03-04] MEDS: BOOST VANILLA PO SCH (20:14)
[2017-03-04] MEDS: ATORVASTATIN 20 MG TAB PO SCH (20:15)
[2017-03-04] MEDS: DOCUSATE SODIUM 100 MG CAP PO SCH (20:16)
--- NOTE | 2017-03-04 22:19 | Family Medicine Progress Note ---
Progress Note Date of Service Mar 04, 2017. Subjective Pt evaluation today including: conversation w/ patient, physical exam Pain: none reported PO Intake: tolerating well Voiding: no voiding problems patient remains asymptomatic, eager to leave Cardiovascular: No see HPI, No chest pain, No orthopnea, No PND, No edema, No claudication, No palpitations, No problem reported Abdomen: No pain, No nausea, No vomiting, No diarrhea, No constipation, No GI bleeding, No problem reported Musculoskeletal: + joint pain All Other Systems: Reviewed and Negative Medications Current Inpatient Medications Medications (Trade) Dose Ordered Sig/Shin Route Start Time Stop Time Status Last Admin Dose Admin Acetaminophen (Tylenol Tab) 650 mg Q4H PRN PO 02/23/17 23:45 03/25/17 23:44 02/24/17 21:13 650 MG Al Hydrox/Mg Hydrox/Simethicone (Maalox Max Susp) 15 ml Q4H PRN PO 02/23/17 23:45 03/25/17 23:44 Magnesium Hydroxide (Milk Of Magnesia Susp) 30 ml Q12H PRN PO 02/23/17 23:45 03/25/17 23:44 Ondansetron HCl (Zofran Inj) 4 mg Q6H PRN IV 02/23/17 23:45 03/25/17 23:44 03/02/17 22:35 4 MG Nitroglycerin (Nitrostat Tab) 0.4 mg UD PRN SL 02/23/17 23:45 03/25/17 23:44 Polyethylene (Miralax Powder Packet) 17 gm DAILY PRN PO 02/23/17 23:45 03/25/17 23:44 Atorvastatin Calcium (Lipitor Tab) 20 mg HS PO 02/24/17 21:00 03/26/17 20:59 03/04/17 20:15 20 MG Citalopram Hydrobromide (celeXA TAB) 40 mg DAILY PO 02/24/17 09:00 03/26/17 08:59 03/04/17 08:11 40 MG Diltiazem HCl (Cardizem Cd Cap) 120 mg DAILY PO 02/24/17 09:00 03/26/17 08:59 03/04/17 08:12 120 MG Docusate Sodium (coLACE CAP) 100 mg HS PO 02/24/17 21:00 03/26/17 20:59 03/04/17 20:16 100 MG Fentanyl (Duragesic Patch) 25 mcg Q3D@0900 TD 02/24/17 09:00 03/10/17 08:59 03/02/17 12:23 25 MCG Finasteride (Proscar Tab) 5 mg DAILY PO 02/24/17 09:00 03/26/17 08:59 03/04/17 08:11 5 MG Furosemide (Lasix Tab) 40 mg QAM PO 02/24/17 09:00 03/26/17 08:59 03/04/17 08:11 40 MG Lactobacillus Acidophilus (Floranex Tab) 3 tab TID PO 02/24/17 09:00 03/26/17 08:59 03/04/17 20:14 3 TAB Magnesium Oxide (Mag-Ox Tab) 400 mg BID PO 02/24/17 09:00 03/26/17 08:59 03/04/17 20:14 400 MG Potassium Chloride (Klor-Con Tab) 20 meq DAILY PO 02/24/17 09:00 03/26/17 08:59 03/04/17 08:11 20 MEQ Miscellaneous (Fentanyl Patch Remove & Waste) 1 ea Q3D@0859 N/A 02/24/17 08:59 03/26/17 08:58 03/02/17 08:59 1 EA Miscellaneous Information (Check Fentanyl Patch Placement) 1 ea QS N/A 02/24/17 00:45 03/26/17 00:44 03/04/17 16:13 1 EA Enteral Nutritional Formula (Boost) 1 can HS PO 02/24/17 21:00 03/26/17 20:59 03/04/17 20:14 1 CAN Glucose (Glucose 40% Gel) 15-30 GRAMS 15 GRAMS... UD PRN PO 02/26/17 08:30 03/28/17 08:29 Glucose (Glucose Chew Tab) 4-8 Tablets 4 Tabl... UD PRN PO 02/26/17 08:30 03/28/17 08:29 Dextrose (Dextrose 50% 50ML Syringe) 25-50ML OF 50% DW IV FOR... UD PRN IV 02/26/17 08:30 03/28/17 08:29 Glucagon (Glucagon Inj) 1 mg UD PRN SQ 02/26/17 08:30 1/20/18 08:29 Pantoprazole Sodium (Protonix Tab) 40 mg BID PO 02/27/17 09:00 03/29/17 08:59 03/04/17 20:14 40 MG Diclofenac Sodium (Voltaren 1% Top Gel) 1 appln QID EXT 02/26/17 17:00 03/28/17 16:59 03/03/17 20:21 1 APPLN Warfarin Sodium (Coumadin Tab) 6 mg DAILY@16 PO 03/01/17 16:00 03/31/17 15:59 03/04/17 16:13 6 MG Magnesium Oxide (Mag-Ox Tab) 400 mg QAM PO 03/02/17 08:00 04/01/17 07:59 03/04/17 08:12 400 MG Ferrous Gluconate (Ferrous Gluconate Tab) 324 mg QAM PO 03/03/17 08:00 04/02/17 07:59 03/04/17 08:11 324 MG Objective Vital Signs Date Time Temp Pulse Resp B/P (MAP) Pulse Ox O2 Delivery O2 Flow Rate FiO2 03/04/17 16:07 Room Air 03/04/17 15:29 36.8 71 16 109/67 (81) 97 Room Air 03/04/17 08:15 95 Room Air 03/04/17 07:30 36.5 62 16 160/74 (102) 95 Room Air 03/04/17 00:15 Room Air 03/03/17 22:48 36.7 66 18 145/68 (93) 97 Room Air Physical Exam Notes: General Appearance: WD/WN, no apparent distress Respiratory/Chest: chest non-tender, no respiratory distress, no accessory muscle use, + decreased breath sounds (Left lower lobe), + crackles (LLL) Cardiovascular: regular rate, rhythm, no edema, no gallop, no JVD, no murmur Abdomen: normal bowel sounds, non tender, soft 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, no motor/sensory deficits, alert, normal mood/affect, oriented x 3 Skin: normal color Laboratory Results Last Resulted 03/04/17 05:54 Red Blood Count 3.60, Mean Corpuscular Volume 87.5, Mean Corpuscular Hemoglobin 27.2, Mean Corpuscular Hemoglobin Concent 31.1, Mean Platelet Volume 11.5, Neutrophils (%) (Auto) 70.7, Lymphocytes (%) (Auto) 17.5, Monocytes (%) (Auto) 10.0, Eosinophils (%) (Auto) 0.7, Basophils (%) (Auto) 0.1, Neutrophils # (Auto ) 5.04, Lymphocytes # (Auto) 1.25, Monocytes # (Auto) 0.71, Eosinophils # (Auto ) 0.05, Basophils # (Auto) 0.01 Last Resulted 03/04/17 05:54 Past 24 Hours Test 03/04/17 05:54 Range/Units Prothromb Time International Ratio 2.4 H 0.9-1.1 Prothrombin Time 24.8 H 9.0-12.0 SECONDS Assessment and Plan 86 yo M admitted for acute GI bleed and supratherapeutic INR of 7.0 Hypomagnesemia in house - Mg 1.9, will recheck tomorrow - Continue Mag Oxide PO 400mg daily for 4 weeks, then reassess - Handwritten Rx given for repeat lab check of magnesium around March 18 2017 Supratherapeutic INR/acute GI blood loss - resolved with stable H/H - Given Vitamin K and FFP at [facility] for INR of 7 - possible interaction between warfarin and cipro - ?polypharmacy - INR currently 2.4 on 6mg daily; continue this treatment, and stop if he rebleeds, in which case consider outpatient capsule study - GI consulted - EGD - hiatal hernia, no source of bleeding - colonoscopy - diverticulosis in sigmoid colon, 5mm polyp in the ascending colon (removed - consistent with tubular adenoma on pathology) but no active sources of bleeding - Due to patient's age, no need for further 5 yr colonoscopy follow up - Hgb currently stable and improving at 9.9 - OD Ferrous gluconate 324, sten stop after 2 weeks and reassess Left trochanteric bursitis secondary to Fall - improved s/p steroid injection - apply heat and voltaren gel to area - steroid injection into left trochanteric bursa performed in house on 02/27/17 CKD stage 3 - at baseline, creatinine 1.24 today H/o prostate ca/bladder ca- stable BPH- continue finasteride Cad/HTN- continue aspirin 81, lipitor 20, lasix 40 Afib s/p Pacemaker - NSR, restarted on warfarin 6mg daily based on home dosage Chronic Pain - continue Fentanyl patch - continue Citalopram Code: DNR DVTP: coumadin Dispo: awaiting placement at [facility]; insurance denied; will call daughter who states she will appeal decision or care for him at home Resident Physician Supervision Note: I interviewed and examined the patient. Discussed with Dr. Gaytan and agree with findings and plan as documented in the note. Any exceptions or clarifications are listed here: None Documented By: Donald Zamorano feeling OK awaiting decision on placement vitals noted nad breathing unlabored no pallor or icterus probable polypharmacy - improved. stable but awaiting hopeful rehab placement. Continued [facility] stay due to: other (patient accepted at , insurance denied approval) Resident Tracking Resident Involvement: Resident Care Provided Care Provided: Adult Hospital Medicine
[2017-03-04 23:07] VITALS: BP 122/67; PULSE 74; TEMP 36.8; O2SAT 95
[2017-03-05 07:28] VITALS: BP 143/71; PULSE 72; TEMP 36.6; O2SAT 94
[2017-03-05] MEDS: FINASTERIDE 5 MG TAB PO SCH (07:49)
[2017-03-05] MEDS: PANTOprazole SOD 40 MG TAB PO SCH ×2 (07:49→20:40)
[2017-03-05] MEDS: DILTIAZEM HCL 120 MG CAPCR PO SCH (07:49)
[2017-03-05] MEDS: POTASSIUM CHLORIDE 20 MEQ TABCR PO SCH (07:50)
[2017-03-05] MEDS: CITALOPRAM 40 MG TAB PO SCH (07:50)
[2017-03-05] MEDS: DICLOFENAC SOD 1% GEL 100 GM TUBE EXT SCH ×4 (07:50→20:40)
[2017-03-05] MEDS: FERROUS GLUCONATE 324 MG TAB PO SCH (07:50)
[2017-03-05] MEDS: LACTOBACILLUS ACIDOPHILUS (FLORANEX) TAB PO SCH ×3 (07:50→20:40)
[2017-03-05] MEDS: FUROSEMIDE 40 MG TAB PO SCH (07:50)
[2017-03-05] MEDS: CHECK FENTANYL PATCH PLACEMENT SCH ×2 (07:50→16:38)
[2017-03-05] MEDS: MAGNESIUM OXIDE 400 MG TAB PO SCH ×2 (07:50→07:59)
[2017-03-05] MEDS: FENTANYL 25 MCG/HR TDSY TD SCH (08:00)
[2017-03-05] MEDS: FENTANYL PATCH REMOVE & WASTE SCH (08:00)
[2017-03-05 15:37] VITALS: BP 115/66; PULSE 74; TEMP 36.6; O2SAT 95
[2017-03-05] MEDS ORDERED: WARFARIN SOD 4 MG TAB PO ONE (16:00)
--- NOTE | 2017-03-05 18:27 | Progress Note ---
Subjective Date of Service: Mar 05, 2017. Subjective Pt evaluation today including: conversation w/ patient, physical exam, chart review, review of inpatient medication list feeling fine. awaiting decision on family appeal for rehab. called peer to peer - d/w dr katz at pt's insurance company. he noted denial of rehab due to lack of need for daily physician visits//medical complexity. i discussed that my concern was for rehabbing patient as much as possible to give him the highest ceiling for final dispo, and that 3hrs of therapy a day would be far superior to 1hr typical of SNF level rehab. he noted that was not a reason that would be able to overturn the denial, so he upheld this. no new complaints Problem List Medical Problems: (1) Acute bronchitis Status: Acute (2) CHF (congestive heart failure) Status: Acute (3) Hypoxia Status: Acute (4) Pneumonia Status: Acute (5) UTI (urinary tract infection) Status: Acute Review of Systems all other ROS otherwise negative except for as above Objective Vital Signs Date Time Temp Pulse Resp B/P (MAP) Pulse Ox O2 Delivery O2 Flow Rate FiO2 03/05/17 16:30 Room Air 03/05/17 15:37 36.6 74 18 115/66 (82) 95 Room Air 03/05/17 08:35 Room Air 03/05/17 07:28 36.6 72 18 143/71 (95) 94 Room Air 03/05/17 00:00 Room Air 03/04/17 23:07 36.8 74 20 122/67 (85) 95 Room Air 03/04/17 20:00 Room Air Physical Exam General Appearance: no apparent distress Eyes: EOMI ENT: hearing grossly normal Neck: trachea midline Respiratory/Chest: no respiratory distress, no accessory muscle use Extremities: normal range of motion 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, alert Laboratory Results Last 24 Hours Test 03/05/17 06:11 Prothrombin Time 30.5 SECONDS Prothromb Time International Ratio 3.0 Magnesium Level 2.0 mg/dl Assessment and Plan 86 yo M admitted for acute GI bleed and supratherapeutic INR of 7.0 Hypomagnesemia -continue to supplement - Continue Mag Oxide PO 400mg daily for 4 weeks, then reassess - Handwritten Rx given for repeat lab check of magnesium around March 18 2017 Supratherapeutic INR/acute GI blood loss - resolved with stable H/H - Given Vitamin K and FFP at [facility] for INR of 7 - possible interaction between warfarin and cipro - ?polypharmacy - INR currently 2.4 on 6mg daily; continue this treatment, and stop if he rebleeds, in which case consider outpatient capsule study - GI consulted - EGD - hiatal hernia, no source of bleeding - colonoscopy - diverticulosis in sigmoid colon, 5mm polyp in the ascending colon (removed - consistent with tubular adenoma on pathology) but no active sources of bleeding - Due to patient's age, no need for further 5 yr colonoscopy follow up - Hgb currently stable and improving at 9.9 - OD Ferrous gluconate 324, sten stop after 2 weeks and reassess Left trochanteric bursitis secondary to Fall - improved s/p steroid injection - apply heat and voltaren gel to area - steroid injection into left trochanteric bursa performed in house on 02/27/17 CKD stage 3 - at baseline, creatinine 1.24 today H/o prostate ca/bladder ca- stable BPH- continue finasteride Cad/HTN- continue aspirin 81, lipitor 20, lasix 40 Afib s/p Pacemaker - NSR, restarted on warfarin 6mg daily based on home dosage Chronic Pain - continue Fentanyl patch - continue Citalopram Code: DNR DVT proph: coumadin Dispo: awaiting placement at [facility]; insurance denied; denied my peer to peer appeal. family appeal pending Continued [facility] stay due to: other (patient accepted at , insurance denied approval)
[2017-03-05] MEDS: ATORVASTATIN 20 MG TAB PO SCH (20:39)
[2017-03-05] MEDS: DOCUSATE SODIUM 100 MG CAP PO SCH (20:39)
[2017-03-05] MEDS: BOOST VANILLA PO SCH (20:39)
[2017-03-05 23:52] VITALS: BP 111/65; PULSE 70; TEMP 36.6; O2SAT 93
[2017-03-06] MEDS: CHECK FENTANYL PATCH PLACEMENT SCH ×3 (01:10→16:10)
[2017-03-06 06:26] LABS: BASO % 0.2 %; BASO ABS # 0.01 K/uL (0-0.2); EOS ABS # 0.19 K/uL (0-0.5); HEMOGLOBIN 9.3 g/dL (14.0-18.0); IG# 0.04 K/uL (0.00-0.02); LYMPH % 17.8 %; LYMPH ABS # 1.13 K/uL (1.2-3.4); MEAN PLATELET VOLUME 11.6 fL (7.4-10.4); MONO % 12.4 %; MONO ABS # 0.79 K/uL (0.11-0.59); PLATELET COUNT 171 K/uL (130-400); RED CELL DISTRIBUTION WIDTH CV 18.6 % (11.5-14.5); RED CELL DISTRIBUTION WIDTH SD 55.5 fL (36.4-46.3); WHITE BLOOD COUNT 6.36 K/uL (4.8-10.8)
[2017-03-06 06:35] LABS: INR 3.4 (0.9-1.1)
[2017-03-06 06:58] LABS: CALCIUM 8.4 mg/dl (8.5-10.1); CREATININE 1.1 mg/dl (0.60-1.40); POTASSIUM 3.9 mmol/L (3.5-5.1)
[2017-03-06 07:14] VITALS: BP 121/68; PULSE 64; TEMP 36.7; O2SAT 95
[2017-03-06] MEDS: DICLOFENAC SOD 1% GEL 100 GM TUBE EXT SCH ×4 (08:00→20:00)
[2017-03-06] MEDS: PANTOprazole SOD 40 MG TAB PO SCH ×2 (08:09→20:21)
[2017-03-06] MEDS: MAGNESIUM OXIDE 400 MG TAB PO SCH (08:09)
[2017-03-06] MEDS: POTASSIUM CHLORIDE 20 MEQ TABCR PO SCH (08:10)
[2017-03-06] MEDS: FUROSEMIDE 40 MG TAB PO SCH (08:10)
[2017-03-06] MEDS: DILTIAZEM HCL 120 MG CAPCR PO SCH (08:10)
[2017-03-06] MEDS: LACTOBACILLUS ACIDOPHILUS (FLORANEX) TAB PO SCH ×3 (08:10→20:20)
[2017-03-06] MEDS: FINASTERIDE 5 MG TAB PO SCH (08:10)
[2017-03-06] MEDS: FERROUS GLUCONATE 324 MG TAB PO SCH (08:10)
[2017-03-06] MEDS: CITALOPRAM 40 MG TAB PO SCH (08:11)
[2017-03-06 08:40] VITALS: O2SAT 95
[2017-03-06 15:10] VITALS: BP 114/69; PULSE 75; TEMP 36.3; O2SAT 96
[2017-03-06] MEDS: WARFARIN SOD 5 MG TAB PO SCH (16:07)
--- NOTE | 2017-03-06 17:46 | Progress Note ---
Subjective Date of Service: Mar 06, 2017. Subjective Pt evaluation today including: conversation w/ patient, conversation w/ family no new issues family appealed rehab and unfortunately lost appeal. would prefer [facility] as skilled, we are informed that they cannot take him until probably 03/10. no new complaints, no other issues identified. Problem List Medical Problems: (1) Acute bronchitis Status: Acute (2) CHF (congestive heart failure) Status: Acute (3) Hypoxia Status: Acute (4) Pneumonia Status: Acute (5) UTI (urinary tract infection) Status: Acute Review of Systems all other ROS otherwise negative except for as above Objective Vital Signs Date Time Temp Pulse Resp B/P (MAP) Pulse Ox O2 Delivery O2 Flow Rate FiO2 03/06/17 16:00 Room Air 03/06/17 15:10 36.3 75 20 114/69 (84) 96 Room Air 03/06/17 08:40 95 Room Air 03/06/17 07:14 36.7 64 18 121/68 (85) 95 Room Air 03/06/17 01:00 Room Air 03/05/17 23:52 36.6 70 18 111/65 (80) 93 Room Air 03/05/17 20:40 Room Air Physical Exam General Appearance: no apparent distress Eyes: EOMI ENT: hearing grossly normal Neck: trachea midline Respiratory/Chest: no respiratory distress, no accessory muscle use Extremities: normal range of motion 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, alert, normal mood/affect Skin: normal color Laboratory Results Last 24 Hours Test 03/06/17 05:51 White Blood Count 6.36 K/uL Red Blood Count 3.45 M/uL Hemoglobin 9.3 g/dL Hematocrit 30.0 % Mean Corpuscular Volume 87.0 fL Mean Corpuscular Hemoglobin 27.0 pg Mean Corpuscular Hemoglobin Concent 31.0 g/dl Platelet Count 171 K/uL Mean Platelet Volume 11.6 fL Neutrophils (%) (Auto) 66.0 % Lymphocytes (%) (Auto) 17.8 % Monocytes (%) (Auto) 12.4 % Eosinophils (%) (Auto) 3.0 % Basophils (%) (Auto) 0.2 % Neutrophils # (Auto) 4.20 K/uL Lymphocytes # (Auto) 1.13 K/uL Monocytes # (Auto) 0.79 K/uL Eosinophils # (Auto) 0.19 K/uL Basophils # (Auto) 0.01 K/uL RDW Standard Deviation 55.5 fL RDW Coefficient of Variation 18.6 % Immature Granulocyte % (Auto) 0.6 % Immature Granulocyte # (Auto) 0.04 K/uL Prothrombin Time 35.3 SECONDS Prothromb Time International Ratio 3.4 Sodium Level 139 mmol/L Potassium Level 3.9 mmol/L Chloride Level 102 mmol/L Carbon Dioxide Level 31 mmol/L Anion Gap 6.0 mmol/L Blood Urea Nitrogen 32 mg/dl Creatinine 1.10 mg/dl Est Creatinine Clear Calc Drug Dose 47.9 ml/min Estimated GFR () 69.1 Estimated GFR (Non- 59.6 BUN/Creatinine Ratio 29.1 Random Glucose 96 mg/dl Calcium Level 8.4 mg/dl Assessment and Plan 86 yo M admitted for acute GI bleed and supratherapeutic INR of 7.0 Hypomagnesemia -continue to supplement - Continue Mag Oxide PO 400mg daily for 4 weeks, then reassess - Handwritten Rx given for repeat lab check of magnesium around March 18 2017 Supratherapeutic INR/acute GI blood loss - resolved with stable H/H - Given Vitamin K and FFP at [facility] for INR of 7 - possible interaction between warfarin and cipro - ?polypharmacy - continue to titrate coumadin and follow INR - GI consulted - EGD - hiatal hernia, no source of bleeding - colonoscopy - diverticulosis in sigmoid colon, 5mm polyp in the ascending colon (removed - consistent with tubular adenoma on pathology) but no active sources of bleeding - Due to patient's age, no need for further 5 yr colonoscopy follow up - Hgb currently stable - OD Ferrous gluconate 324, stop after 2 weeks and reassess Left trochanteric bursitis secondary to Fall - improved s/p steroid injection - apply heat and voltaren gel to area - steroid injection into left trochanteric bursa performed in house on 02/27/17 CKD stage 3 - at baseline, creatinine 1.24 today H/o prostate ca/bladder ca- stable BPH- continue finasteride Cad/HTN- continue aspirin 81, lipitor 20, lasix 40 Afib s/p Pacemaker - NSR, restarted on warfarin 6mg daily based on home dosage Chronic Pain - continue Fentanyl patch - continue Citalopram Code: DNR DVT proph: coumadin Dispo: awaiting placement Continued [facility] stay due to: other (patient accepted at , insurance denied approval)
[2017-03-06] MEDS: ATORVASTATIN 20 MG TAB PO SCH (20:21)
[2017-03-06] MEDS: DOCUSATE SODIUM 100 MG CAP PO SCH (20:21)
[2017-03-06] MEDS: BOOST VANILLA PO SCH (20:21)
[2017-03-06 23:01] VITALS: BP 117/51; PULSE 67; TEMP 36.8; O2SAT 94
[2017-03-07 00:02] VITALS: BP 116/64; PULSE 69; TEMP 36.7; O2SAT 96
[2017-03-07] MEDS: CHECK FENTANYL PATCH PLACEMENT SCH ×3 (00:04→16:58)
[2017-03-07] MEDS: DICLOFENAC SOD 1% GEL 100 GM TUBE EXT SCH ×5 (08:07→20:06)
[2017-03-07] MEDS: POTASSIUM CHLORIDE 20 MEQ TABCR PO SCH (08:08)
[2017-03-07] MEDS: FERROUS GLUCONATE 324 MG TAB PO SCH (08:08)
[2017-03-07] MEDS: FINASTERIDE 5 MG TAB PO SCH (08:08)
[2017-03-07] MEDS: MAGNESIUM OXIDE 400 MG TAB PO SCH (08:08)
[2017-03-07] MEDS: CITALOPRAM 40 MG TAB PO SCH (08:08)
[2017-03-07] MEDS: DILTIAZEM HCL 120 MG CAPCR PO SCH (08:09)
[2017-03-07] MEDS: LACTOBACILLUS ACIDOPHILUS (FLORANEX) TAB PO SCH ×3 (08:10→20:04)
[2017-03-07] MEDS: PANTOprazole SOD 40 MG TAB PO SCH ×2 (08:10→20:04)
[2017-03-07] MEDS: FUROSEMIDE 40 MG TAB PO SCH (08:12)
[2017-03-07 08:23] VITALS: BP 119/61; PULSE 68; TEMP 36.7; O2SAT 96
[2017-03-07 16:04] VITALS: BP 164/81; PULSE 72; TEMP 36.6; O2SAT 96
--- NOTE | 2017-03-07 16:34 | Progress Note ---
Subjective Date of Service: Mar 07, 2017. Subjective Pt evaluation today including: conversation w/ patient, physical exam, chart review, review of inpatient medication list feeling the same no new complaints no new problems Problem List Medical Problems: (1) Acute bronchitis Status: Acute (2) CHF (congestive heart failure) Status: Acute (3) Hypoxia Status: Acute (4) Pneumonia Status: Acute (5) UTI (urinary tract infection) Status: Acute Review of Systems all other ROS otherwise negative except for as above Objective Vital Signs Date Time Temp Pulse Resp B/P (MAP) Pulse Ox O2 Delivery O2 Flow Rate FiO2 03/07/17 16:04 36.6 72 18 164/81 (108) 96 Room Air 03/07/17 15:35 Room Air 03/07/17 08:23 36.7 68 18 119/61 (80) 96 Room Air 03/07/17 08:00 Room Air 03/07/17 00:16 Room Air 03/07/17 00:02 36.7 69 20 116/64 (81) 96 Room Air 03/06/17 23:01 36.8 67 20 117/51 (73) 94 Room Air 03/06/17 20:20 Room Air Physical Exam General Appearance: no apparent distress Eyes: EOMI ENT: hearing grossly normal Neck: trachea midline Respiratory/Chest: no respiratory distress, no accessory muscle use 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, alert Assessment and Plan 86 yo M admitted for acute GI bleed and supratherapeutic INR of 7.0 Hypomagnesemia -continue to supplement - Continue Mag Oxide PO 400mg daily for 4 weeks, then reassess - Handwritten Rx given for repeat lab check of magnesium around March 18 2017 Supratherapeutic INR/acute GI blood loss - resolved with stable H/H - Given Vitamin K and FFP at [facility] for INR of 7 - possible interaction between warfarin and cipro - ?polypharmacy - continue to titrate coumadin and follow INR - GI consulted - EGD - hiatal hernia, no source of bleeding - colonoscopy - diverticulosis in sigmoid colon, 5mm polyp in the ascending colon (removed - consistent with tubular adenoma on pathology) but no active sources of bleeding - Due to patient's age, no need for further 5 yr colonoscopy follow up - Hgb currently stable - OD Ferrous gluconate 324, stop after 2 weeks and reassess Left trochanteric bursitis secondary to Fall - improved s/p steroid injection - apply heat and voltaren gel to area - steroid injection into left trochanteric bursa performed in house on 02/27/17 CKD stage 3 - at baseline, creatinine 1.24 today H/o prostate ca/bladder ca- stable BPH- continue finasteride Cad/HTN- continue aspirin 81, lipitor 20, lasix 40 Afib s/p Pacemaker - NSR, restarted on warfarin 6mg daily based on home dosage Chronic Pain - continue Fentanyl patch - continue Citalopram Code: DNR DVT proph: coumadin Dispo: awaiting placement Continued [facility] stay due to: other (patient accepted at [facility], insurance denied [facility] approval)
[2017-03-07] MEDS: WARFARIN SOD 5 MG TAB PO SCH (16:57)
[2017-03-07 20:00] VITALS: O2SAT 96
[2017-03-07] MEDS: DOCUSATE SODIUM 100 MG CAP PO SCH ×2 (20:04→20:12)
[2017-03-07] MEDS: ATORVASTATIN 20 MG TAB PO SCH (20:04)
[2017-03-07] MEDS: BOOST VANILLA PO SCH (20:05)
[2017-03-07] MEDS: ONDANSETRON INJ 2 MG/ML 2 ML VIAL IV PRN (22:58)
[2017-03-07 23:00] VITALS: BP 149/68; PULSE 80; TEMP 36.8; O2SAT 95
[2017-03-08] VITALS: O2SAT 96
[2017-03-08] MEDS: CHECK FENTANYL PATCH PLACEMENT SCH ×3 (00:06→17:09)
[2017-03-08 08:20] VITALS: BP 119/67; PULSE 64; TEMP 36.9; O2SAT 92
[2017-03-08 08:45] VITALS: O2SAT 92
[2017-03-08] MEDS: FERROUS GLUCONATE 324 MG TAB PO SCH (08:50)
[2017-03-08] MEDS: DICLOFENAC SOD 1% GEL 100 GM TUBE EXT SCH ×4 (08:50→21:02)
[2017-03-08] MEDS: MAGNESIUM OXIDE 400 MG TAB PO SCH (08:51)
[2017-03-08] MEDS: FINASTERIDE 5 MG TAB PO SCH (08:51)
[2017-03-08] MEDS: DILTIAZEM HCL 120 MG CAPCR PO SCH (08:51)
[2017-03-08] MEDS: LACTOBACILLUS ACIDOPHILUS (FLORANEX) TAB PO SCH ×3 (08:51→21:03)
[2017-03-08] MEDS: PANTOprazole SOD 40 MG TAB PO SCH ×2 (08:52→21:03)
[2017-03-08] MEDS: FUROSEMIDE 40 MG TAB PO SCH (08:52)
[2017-03-08] MEDS: CITALOPRAM 40 MG TAB PO SCH (08:52)
[2017-03-08] MEDS: FENTANYL 25 MCG/HR TDSY TD SCH (09:03)
[2017-03-08] MEDS: FENTANYL PATCH REMOVE & WASTE SCH (09:03)
[2017-03-08 09:15] LABS: BASO % 0.1 %; BASO ABS # 0.01 K/uL (0-0.2); EOS % 1.2 %; EOS ABS # 0.11 K/uL (0-0.5); HEMATOCRIT 31.3 % (42-52); HEMOGLOBIN 9.9 g/dL (14.0-18.0); IG# 0.03 K/uL (0.00-0.02); LYMPH % 11.4 %; LYMPH ABS # 1.06 K/uL (1.2-3.4); MEAN CELL VOLUME 87.9 fL (80-100); MEAN CORPUSCULAR HEMOGLOBIN 27.8 pg (25-34); MEAN CORPUSCULAR HGB CONC 31.6 g/dl (32-36); MEAN PLATELET VOLUME 12.1 fL (7.4-10.4); MONO % 9.1 %; MONO ABS # 0.85 K/uL (0.11-0.59); NEUT % 77.9 %; NEUT ABS # 7.27 K/uL (1.4-6.5); PLATELET COUNT 201 K/uL (130-400); RED CELL DISTRIBUTION WIDTH CV 18.9 % (11.5-14.5); RED CELL DISTRIBUTION WIDTH SD 58.2 fL (36.4-46.3); WHITE BLOOD COUNT 9.33 K/uL (4.8-10.8)
[2017-03-08 09:22] LABS: INR 3.3 (0.9-1.1)
[2017-03-08 09:42] LABS: CALCIUM 8.4 mg/dl (8.5-10.1); CREATININE 1.14 mg/dl (0.60-1.40); POTASSIUM 4.2 mmol/L (3.5-5.1)
[2017-03-08] MEDS: POTASSIUM CHLORIDE 20 MEQ TABCR PO SCH (10:01)
--- NOTE | 2017-03-08 12:59 | Family Medicine Progress Note ---
Progress Note Date of Service Mar 08, 2017. Subjective Pt evaluation today including: conversation w/ patient (pt feeling well today, no new complaints.), physical exam, chart review, lab review Pain: denies PO Intake: adequate Voiding: no voiding problems Respiratory: No cough Cardiovascular: No chest pain Abdomen: No pain Medications Current Inpatient Medications Medications (Trade) Dose Ordered Sig/Shin Route Start Time Stop Time Status Last Admin Dose Admin Acetaminophen (Tylenol Tab) 650 mg Q4H PRN PO 02/23/17 23:45 03/25/17 23:44 02/24/17 21:13 650 MG Al Hydrox/Mg Hydrox/Simethicone (Maalox Max Susp) 15 ml Q4H PRN PO 02/23/17 23:45 03/25/17 23:44 Magnesium Hydroxide (Milk Of Magnesia Susp) 30 ml Q12H PRN PO 02/23/17 23:45 03/25/17 23:44 Ondansetron HCl (Zofran Inj) 4 mg Q6H PRN IV 02/23/17 23:45 03/25/17 23:44 03/07/17 22:58 4 MG Nitroglycerin (Nitrostat Tab) 0.4 mg UD PRN SL 02/23/17 23:45 03/25/17 23:44 Polyethylene (Miralax Powder Packet) 17 gm DAILY PRN PO 02/23/17 23:45 03/25/17 23:44 Atorvastatin Calcium (Lipitor Tab) 20 mg HS PO 02/24/17 21:00 03/26/17 20:59 03/07/17 20:04 20 MG Citalopram Hydrobromide (celeXA TAB) 40 mg DAILY PO 02/24/17 09:00 03/26/17 08:59 03/08/17 08:52 40 MG Diltiazem HCl (Cardizem Cd Cap) 120 mg DAILY PO 02/24/17 09:00 03/26/17 08:59 03/08/17 08:51 120 MG Docusate Sodium (coLACE CAP) 100 mg HS PO 02/24/17 21:00 03/26/17 20:59 03/06/17 20:21 100 MG Fentanyl (Duragesic Patch) 25 mcg Q3D@0900 TD 02/24/17 09:00 1/2/18 08:59 03/08/17 09:03 25 MCG Finasteride (Proscar Tab) 5 mg DAILY PO 02/24/17 09:00 03/26/17 08:59 03/08/17 08:51 5 MG Furosemide (Lasix Tab) 40 mg QAM PO 02/24/17 09:00 03/26/17 08:59 03/08/17 08:52 40 MG Lactobacillus Acidophilus (Floranex Tab) 3 tab TID PO 02/24/17 09:00 03/26/17 08:59 03/08/17 08:51 3 TAB Potassium Chloride (Klor-Con Tab) 20 meq DAILY PO 02/24/17 09:00 03/26/17 08:59 03/08/17 10:01 20 MEQ Miscellaneous (Fentanyl Patch Remove & Waste) 1 ea Q3D@0859 N/A 02/24/17 08:59 03/26/17 08:58 03/08/17 09:03 1 EA Miscellaneous Information (Check Fentanyl Patch Placement) 1 ea QS N/A 02/24/17 00:45 03/26/17 00:44 03/08/17 08:52 1 EA Enteral Nutritional Formula (Boost) 1 can HS PO 02/24/17 21:00 03/26/17 20:59 03/07/17 20:05 1 CAN Glucose (Glucose 40% Gel) 15-30 GRAMS 15 GRAMS... UD PRN PO 02/26/17 08:30 03/28/17 08:29 Glucose (Glucose Chew Tab) 4-8 Tablets 4 Tabl... UD PRN PO 02/26/17 08:30 03/28/17 08:29 Dextrose (Dextrose 50% 50ML Syringe) 25-50ML OF 50% DW IV FOR... UD PRN IV 02/26/17 08:30 03/28/17 08:29 Glucagon (Glucagon Inj) 1 mg UD PRN SQ 02/26/17 08:30 03/28/17 08:29 Pantoprazole Sodium (Protonix Tab) 40 mg BID PO 02/27/17 09:00 03/29/17 08:59 03/08/17 08:52 40 MG Diclofenac Sodium (Voltaren 1% Top Gel) 1 appln QID EXT 02/26/17 17:00 1/20/18 16:59 03/08/17 12:32 1 APPLN Magnesium Oxide (Mag-Ox Tab) 400 mg QAM PO 03/02/17 08:00 04/01/17 07:59 03/08/17 08:51 400 MG Ferrous Gluconate (Ferrous Gluconate Tab) 324 mg QAM PO 03/03/17 08:00 04/02/17 07:59 03/08/17 08:50 324 MG Warfarin Sodium (Coumadin Tab) 5 mg DAILY@16 PO 03/06/17 16:00 04/05/17 15:59 03/07/17 16:57 5 MG Objective Vital Signs Date Time Temp Pulse Resp B/P (MAP) Pulse Ox O2 Delivery O2 Flow Rate FiO2 03/08/17 08:45 92 Room Air 03/08/17 08:20 36.9 64 16 119/67 (84) 92 Room Air 03/08/17 00:00 96 Room Air 03/07/17 23:00 36.8 80 16 149/68 (95) 95 Room Air 03/07/17 20:00 96 Room Air 03/07/17 16:04 36.6 72 18 164/81 (108) 96 Room Air 03/07/17 15:35 Room Air Physical Exam General Appearance: WD/WN, no apparent distress Eyes: normal inspection ENT: hearing grossly normal Respiratory/Chest: lungs clear, normal breath sounds, no respiratory distress Cardiovascular: regular rate, rhythm, no gallop Abdomen: normal bowel sounds, non tender, soft Skin: warm/dry Laboratory Results 03/08/17 09:05 Red Blood Count 3.56, Mean Corpuscular Volume 87.9, Mean Corpuscular Hemoglobin 27.8, Mean Corpuscular Hemoglobin Concent 31.6, Mean Platelet Volume 12.1, Neutrophils (%) (Auto) 77.9, Lymphocytes (%) (Auto) 11.4, Monocytes (%) (Auto) 9.1, Eosinophils (%) (Auto) 1.2, Basophils (%) (Auto) 0.1, Neutrophils # (Auto) 7.27, Lymphocytes # (Auto) 1.06, Monocytes # (Auto) 0.85, Eosinophils # (Auto) 0.11, Basophils # (Auto) 0.01 03/08/17 09:05 Test 03/08/17 09:05 White Blood Count 9.33 K/uL (4.8-10.8) Red Blood Count 3.56 M/uL (4.7-6.1) Hemoglobin 9.9 g/dL (14.0-18.0) Hematocrit 31.3 % (42-52) Mean Corpuscular Volume 87.9 fL (80-100) Mean Corpuscular Hemoglobin 27.8 pg (25-34) Mean Corpuscular Hemoglobin Concent 31.6 g/dl (32-36) Platelet Count 201 K/uL (130-400) Mean Platelet Volume 12.1 fL (7.4-10.4) Neutrophils (%) (Auto) 77.9 % Lymphocytes (%) (Auto) 11.4 % Monocytes (%) (Auto) 9.1 % Eosinophils (%) (Auto) 1.2 % Basophils (%) (Auto) 0.1 % Neutrophils # (Auto) 7.27 K/uL (1.4-6.5) Lymphocytes # (Auto) 1.06 K/uL (1.2-3.4) Monocytes # (Auto) 0.85 K/uL (0.11-0.59) Eosinophils # (Auto) 0.11 K/uL (0-0.5) Basophils # (Auto) 0.01 K/uL (0-0.2) RDW Standard Deviation 58.2 fL (36.4-46.3) RDW Coefficient of Variation 18.9 % (11.5-14.5) Immature Granulocyte % (Auto) 0.3 % Immature Granulocyte # (Auto) 0.03 K/uL (0.00-0.02) Prothrombin Time 34.2 SECONDS (9.0-12.0) Prothromb Time International Ratio 3.3 (0.9-1.1) Anion Gap 6.0 mmol/L (3-11) Est Creatinine Clear Calc Drug Dose 46.2 ml/min Estimated GFR () 66.2 Estimated GFR (Non- 57.1 BUN/Creatinine Ratio 25.6 (10-20) Calcium Level 8.4 mg/dl (8.5-10.1) Assessment and Plan 86 yo M admitted for acute GI bleed and supratherapeutic INR of 7.0 Hypomagnesemia - continue to supplement - Continue Mag Oxide PO 400mg daily for 4 weeks, then reassess - Handwritten Rx given for repeat lab check of magnesium around March 18 2017 Supratherapeutic INR/acute GI blood loss - resolved with stable H/H - Given Vitamin K and FFP at [facility] for INR of 7 - possible interaction between warfarin and cipro - ?polypharmacy - continue to titrate coumadin and follow INR - GI consulted - EGD - hiatal hernia, no source of bleeding - colonoscopy - diverticulosis in sigmoid colon, 5mm polyp in the ascending colon (removed - consistent with tubular adenoma on pathology) but no active sources of bleeding - Due to patient's age, no need for further 5 yr colonoscopy follow up - Hgb currently stable - OD Ferrous gluconate 324, stop after 2 weeks and reassess Left trochanteric bursitis secondary to Fall - improved s/p steroid injection - apply heat and voltaren gel to area - steroid injection into left trochanteric bursa performed in house on 02/27/17 CKD stage 3 - at baseline, creatinine 1.14 today H/o prostate ca/bladder ca- stable BPH- continue finasteride Cad/HTN- continue aspirin 81, lipitor 20, lasix 40 Afib s/p Pacemaker - NSR, restarted on warfarin 5mg daily based on home dosage Chronic Pain - continue Fentanyl patch - continue Citalopram Code: DNR DVT proph: coumadin Dispo: awaiting placement Continued [facility] stay due to: other (patient accepted at , insurance denied approval) Resident Tracking Resident Involvement: Resident Care Provided Care Provided: Adult Hospital Medicine
[2017-03-08 15:01] VITALS: BP 107/62; PULSE 68; TEMP 36.3; O2SAT 95
[2017-03-08 16:00] VITALS: O2SAT 95
[2017-03-08] MEDS: WARFARIN SOD 5 MG TAB PO SCH (17:11)
[2017-03-08] MEDS: DOCUSATE SODIUM 100 MG CAP PO SCH (21:00)
[2017-03-08] MEDS: BOOST VANILLA PO SCH (21:03)
[2017-03-08] MEDS: ATORVASTATIN 20 MG TAB PO SCH (21:03)
[2017-03-08 23:17] VITALS: BP 137/70; PULSE 66; TEMP 36; O2SAT 97
[2017-03-09] MEDS: CHECK FENTANYL PATCH PLACEMENT SCH ×4 (00:02→23:29)
[2017-03-09 06:01] LABS: INR 3.6 (0.9-1.1)
[2017-03-09 07:13] VITALS: BP 119/61; PULSE 62; TEMP 36.3; O2SAT 92
[2017-03-09] MEDS: DICLOFENAC SOD 1% GEL 100 GM TUBE EXT SCH ×4 (08:00→20:00)
[2017-03-09] MEDS: DILTIAZEM HCL 120 MG CAPCR PO SCH (08:18)
[2017-03-09] MEDS: POTASSIUM CHLORIDE 20 MEQ TABCR PO SCH (08:19)
[2017-03-09] MEDS: FUROSEMIDE 40 MG TAB PO SCH (08:19)
[2017-03-09] MEDS: LACTOBACILLUS ACIDOPHILUS (FLORANEX) TAB PO SCH ×3 (08:19→20:12)
[2017-03-09] MEDS: MAGNESIUM OXIDE 400 MG TAB PO SCH (08:19)
[2017-03-09] MEDS: FERROUS GLUCONATE 324 MG TAB PO SCH (08:19)
[2017-03-09] MEDS: CITALOPRAM 40 MG TAB PO SCH (08:19)
[2017-03-09] MEDS: PANTOprazole SOD 40 MG TAB PO SCH ×2 (08:19→20:12)
[2017-03-09] MEDS: FINASTERIDE 5 MG TAB PO SCH (08:19)
--- NOTE | 2017-03-09 13:05 | Progress Note ---
Subjective Date of Service: Mar 09, 2017. Subjective Pt evaluation today including: conversation w/ patient, physical exam, chart review, lab review, review of studies, review of inpatient medication list Resting comfortably in bed No concerns at this time Denies any GI bleeding Problem List Medical Problems: (1) Acute bronchitis Status: Acute (2) CHF (congestive heart failure) Status: Acute (3) Hypoxia Status: Acute (4) Pneumonia Status: Acute (5) UTI (urinary tract infection) Status: Acute Review of Systems Constitutional: No fever, No chills, No sweats, No weakness Eyes: No worsening of vision, No eye pain, No redness, No discharge ENT: No hearing loss, No unusual epistaxis, No nasal symptoms, No sore throat Respiratory: No cough, No sputum, No wheezing, No shortness of breath Cardiac: No chest pain, No orthopnea, No PND, No edema Abdomen: No pain, No nausea, No vomiting, No diarrhea, No GI bleeding Musculoskeletal: No joint pain, No muscle pain, No swelling, No calf pain Male : No dysuria, No urinary frequency, No incontinence, No nocturia more than once/night Neurologic: No memory loss, No paralysis, No weakness, No numbness/tingling Psychiatric: No depression symptoms, No anhedonism, No anxiety, No insomnia Endo: No fatigue, No excessive thirst Skin: No rash, No itch Objective Vital Signs Date Time Temp Pulse Resp B/P (MAP) Pulse Ox O2 Delivery O2 Flow Rate FiO2 03/09/17 10:42 Room Air 03/09/17 07:13 36.3 62 20 119/61 (80) 92 Room Air 03/09/17 00:00 Room Air 03/08/17 23:17 36.0 66 20 137/70 (92) 97 Room Air 03/08/17 16:00 95 Room Air 03/08/17 15:01 36.3 68 18 107/62 (77) 95 Room Air Physical Exam General Appearance: WD/WN, no apparent distress Eyes: normal inspection, PERRL, EOMI, sclerae normal Neck: supple, no adenopathy, thyroid normal, no JVD Respiratory/Chest: chest non-tender, lungs clear, normal breath sounds, no respiratory distress Cardiovascular: regular rate, rhythm, no edema, no gallop, no JVD Abdomen: normal bowel sounds, non tender, soft, no organomegaly Extremities: normal range of motion, non-tender, normal inspection, no pedal edema Neurologic/Psychiatric: no motor/sensory deficits, alert, normal mood/affect, oriented x 3 Skin: normal color, warm/dry, no rash Lymphatic: no adenopathy Laboratory Results Last 24 Hours Test 03/09/17 05:25 Prothrombin Time 36.4 SECONDS Prothromb Time International Ratio 3.6 Assessment and Plan 86 yo M admitted for acute GI bleed and supratherapeutic INR of 7.0 Supratherapeutic INR/acute GI blood loss - resolved with stable H/H - Given Vitamin K and FFP at [facility] for INR of 7 - possible interaction between warfarin and cipro - ?polypharmacy - Continue to titrate coumadin and follow INR - GI consulted - EGD - hiatal hernia, no source of bleeding - Colonoscopy - diverticulosis in sigmoid colon, 5mm polyp in the ascending colon (removed - consistent with tubular adenoma on pathology) but no active sources of bleeding - Due to patient's age, no need for further 5 yr colonoscopy follow up - Hgb currently stable - OD Ferrous gluconate 324, stop after 2 weeks and reassess Hypomagnesemia - Continue to supplement - Continue Mag Oxide PO 400mg daily for 4 weeks, then reassess - Handwritten Rx given for repeat lab check of magnesium around March 18 2017 Left trochanteric bursitis secondary to Fall - improved s/p steroid injection - Apply heat and voltaren gel to area - Steroid injection into left trochanteric bursa performed in house on 02/27/17 CKD stage 3 - At baseline H/o prostate ca/bladder ca - Stable BPH - Continue finasteride CAD/HTN - Continue aspirin 81, lipitor 20, lasix 40 Afib s/p Pacemaker - NSR, couamdin on hold due to elev INR Chronic Pain - Continue fentanyl patch - Continue citalopram Code: DNR Continued [facility] stay due to: other (patient accepted at [facility], insurance denied [facility] approval)
[2017-03-09 16:12] VITALS: BP 159/70; PULSE 79; TEMP 36.1; O2SAT 95
[2017-03-09] MEDS: ATORVASTATIN 20 MG TAB PO SCH (20:12)
[2017-03-09] MEDS: BOOST VANILLA PO SCH (20:12)
[2017-03-09] MEDS: DOCUSATE SODIUM 100 MG CAP PO SCH (20:13)
[2017-03-09 23:34] VITALS: BP 112/62; PULSE 65; TEMP 36.1; O2SAT 92
[2017-03-10] VITALS: O2SAT 92
[2017-03-10 06:46] LABS: INR 2.7 (0.9-1.1)
[2017-03-10 07:18] VITALS: BP 121/69; PULSE 64; TEMP 36.4; O2SAT 95
[2017-03-10] MEDS: DILTIAZEM HCL 120 MG CAPCR PO SCH (08:48)
[2017-03-10] MEDS: FINASTERIDE 5 MG TAB PO SCH (08:48)
[2017-03-10] MEDS: DOCUSATE SODIUM 100 MG CAP PO SCH (08:48)
[2017-03-10] MEDS: POTASSIUM CHLORIDE 20 MEQ TABCR PO SCH (08:48)
[2017-03-10] MEDS: FERROUS GLUCONATE 324 MG TAB PO SCH (08:49)
[2017-03-10] MEDS: PANTOprazole SOD 40 MG TAB PO SCH ×2 (08:49→20:22)
[2017-03-10] MEDS: FUROSEMIDE 40 MG TAB PO SCH (08:49)
[2017-03-10] MEDS: LACTOBACILLUS ACIDOPHILUS (FLORANEX) TAB PO SCH ×3 (08:49→20:23)
[2017-03-10] MEDS: CHECK FENTANYL PATCH PLACEMENT SCH ×2 (08:49→16:03)
[2017-03-10] MEDS: CITALOPRAM 40 MG TAB PO SCH (08:49)
[2017-03-10] MEDS: MAGNESIUM OXIDE 400 MG TAB PO SCH (08:49)
[2017-03-10] MEDS: DICLOFENAC SOD 1% GEL 100 GM TUBE EXT SCH ×5 (08:50→22:35)
[2017-03-10 09:23] LABS: BASO % 0.2 %; BASO ABS # 0.02 K/uL (0-0.2); EOS % 2.1 %; EOS ABS # 0.17 K/uL (0-0.5); HEMATOCRIT 29.4 % (42-52); HEMOGLOBIN 9.2 g/dL (14.0-18.0); IG# 0.03 K/uL (0.00-0.02); LYMPH % 13.6 %; MEAN CORPUSCULAR HEMOGLOBIN 27.5 pg (25-34); MEAN CORPUSCULAR HGB CONC 31.3 g/dl (32-36); MEAN PLATELET VOLUME 12.9 fL (7.4-10.4); MONO ABS # 0.89 K/uL (0.11-0.59); NEUT % 72.7 %; NEUT ABS # 5.86 K/uL (1.4-6.5); PLATELET COUNT 197 K/uL (130-400); RED CELL DISTRIBUTION WIDTH CV 19.1 % (11.5-14.5); RED CELL DISTRIBUTION WIDTH SD 59.9 fL (36.4-46.3); WHITE BLOOD COUNT 8.07 K/uL (4.8-10.8)
[2017-03-10 09:33] LABS: CALCIUM 8.4 mg/dl (8.5-10.1); CREATININE 1.28 mg/dl (0.60-1.40)
[2017-03-10 10:49] VITALS: BP 124/63; PULSE 60; O2SAT 95
--- NOTE | 2017-03-10 13:33 | Progress Note ---
Subjective Date of Service: Mar 10, 2017. Subjective Pt evaluation today including: conversation w/ patient, physical exam, chart review, lab review, review of studies, review of inpatient medication list Resting comfortably in bed Denies any complaints No blood in stools No other concerns noted Problem List Medical Problems: (1) Acute bronchitis Status: Acute (2) CHF (congestive heart failure) Status: Acute (3) Hypoxia Status: Acute (4) Pneumonia Status: Acute (5) UTI (urinary tract infection) Status: Acute Review of Systems Constitutional: No fever, No chills, No sweats, No weight loss, No weakness Eyes: No worsening of vision, No eye pain, No redness, No discharge Respiratory: No cough, No sputum, No wheezing, No shortness of breath, No dyspnea on exertion Cardiac: No chest pain, No orthopnea, No PND, No edema Abdomen: No pain, No nausea, No vomiting, No diarrhea, No constipation Musculoskeletal: No joint pain, No muscle pain, No swelling, No calf pain Male : No dysuria, No urinary frequency, No incontinence, No slowing stream Neurologic: No memory loss, No paralysis, No weakness, No numbness/tingling Psychiatric: No depression symptoms, No anhedonism, No anxiety, No insomnia Endo: No fatigue, No excessive thirst Skin: No rash, No itch Objective Vital Signs Date Time Temp Pulse Resp B/P (MAP) Pulse Ox O2 Delivery O2 Flow Rate FiO2 03/10/17 10:49 60 95 03/10/17 08:50 Room Air 03/10/17 07:18 36.4 64 20 121/69 (86) 95 Room Air 03/10/17 00:00 92 Room Air 03/09/17 23:34 36.1 65 18 112/62 (79) 92 Room Air 03/09/17 16:12 36.1 79 18 159/70 (99) 95 Room Air 03/09/17 16:00 Room Air Physical Exam General Appearance: WD/WN, no apparent distress Eyes: normal inspection, PERRL, EOMI, sclerae normal Neck: supple, no adenopathy, thyroid normal, no JVD Respiratory/Chest: chest non-tender, lungs clear, normal breath sounds, no respiratory distress Cardiovascular: regular rate, rhythm, no edema, no gallop, no JVD Abdomen: normal bowel sounds, non tender, soft, no organomegaly Extremities: normal range of motion, non-tender, normal inspection, no pedal edema Neurologic/Psychiatric: no motor/sensory deficits, alert, normal mood/affect, oriented x 3 Laboratory Results Last 24 Hours Test 03/10/17 06:13 03/10/17 06:17 Prothrombin Time 28.1 SECONDS Prothromb Time International Ratio 2.7 White Blood Count 8.07 K/uL Red Blood Count 3.34 M/uL Hemoglobin 9.2 g/dL Hematocrit 29.4 % Mean Corpuscular Volume 88.0 fL Mean Corpuscular Hemoglobin 27.5 pg Mean Corpuscular Hemoglobin Concent 31.3 g/dl Platelet Count 197 K/uL Mean Platelet Volume 12.9 fL Neutrophils (%) (Auto) 72.7 % Lymphocytes (%) (Auto) 13.6 % Monocytes (%) (Auto) 11.0 % Eosinophils (%) (Auto) 2.1 % Basophils (%) (Auto) 0.2 % Neutrophils # (Auto) 5.86 K/uL Lymphocytes # (Auto) 1.10 K/uL Monocytes # (Auto) 0.89 K/uL Eosinophils # (Auto) 0.17 K/uL Basophils # (Auto) 0.02 K/uL RDW Standard Deviation 59.9 fL RDW Coefficient of Variation 19.1 % Immature Granulocyte % (Auto) 0.4 % Immature Granulocyte # (Auto) 0.03 K/uL Sodium Level 139 mmol/L Potassium Level 4.0 mmol/L Chloride Level 105 mmol/L Carbon Dioxide Level 30 mmol/L Anion Gap 4.0 mmol/L Blood Urea Nitrogen 36 mg/dl Creatinine 1.28 mg/dl Est Creatinine Clear Calc Drug Dose 41.2 ml/min Estimated GFR () 57.5 Estimated GFR (Non- 49.6 BUN/Creatinine Ratio 28.0 Random Glucose 100 mg/dl Calcium Level 8.4 mg/dl Assessment and Plan 86 yo M admitted for acute GI bleed and supratherapeutic INR of 7.0 Supratherapeutic INR/acute GI blood loss - resolved with stable H/H, no further bleeding - Given Vitamin K and FFP at [facility] for INR of 7 - possible interaction between warfarin and cipro - ?polypharmacy - Continue coumadin at 4mg PO daily - GI consulted - EGD - hiatal hernia, no source of bleeding - Colonoscopy - diverticulosis in sigmoid colon, 5mm polyp in the ascending colon (removed - consistent with tubular adenoma on pathology) but no active sources of bleeding - Due to patient's age, no need for further 5 yr colonoscopy follow up - Hgb currently stable - OD Ferrous gluconate 324, stop after 2 weeks and reassess Hypomagnesemia - Continue to supplement - Continue Mag Oxide PO 400mg daily for 4 weeks, then reassess - Handwritten Rx given for repeat lab check of magnesium around March 18 2017 Left trochanteric bursitis secondary to Fall - improved s/p steroid injection - Apply heat and voltaren gel to area - Steroid injection into left trochanteric bursa performed in house on 02/27/17 CKD stage 3 - At baseline H/o prostate ca/bladder ca - Stable BPH - Continue finasteride CAD/HTN - Continue aspirin 81, lipitor 20, lasix 40 Afib s/p Pacemaker - NSR, couamdin Chronic Pain - Continue fentanyl patch - Continue citalopram Code: DNR Continued [facility] stay due to: other (patient accepted at [facility], insurance denied approval)
[2017-03-10] MEDS ORDERED: FENTANYL PATCH REMOVE & WASTE SCH (13:59)
[2017-03-10] MEDS ORDERED: FENTANYL 25 MCG/HR TDSY TD SCH (14:00)
[2017-03-10] MEDS ORDERED: WARFARIN SOD 4 MG TAB PO SCH (16:00)
[2017-03-10] MEDS ORDERED: CHECK FENTANYL PATCH PLACEMENT SCH (16:00)
[2017-03-10 16:13] VITALS: BP 119/68; PULSE 64; TEMP 36.9; O2SAT 99
[2017-03-10] MEDS: BOOST VANILLA PO SCH (20:21)
[2017-03-10] MEDS: ATORVASTATIN 20 MG TAB PO SCH (20:22)
[2017-03-11 00:07] VITALS: BP 115/67; PULSE 62; TEMP 36.2; O2SAT 93
[2017-03-11] MEDS: CHECK FENTANYL PATCH PLACEMENT SCH ×2 (00:21→08:24)
[2017-03-11 06:33] LABS: INR 1.9 (0.9-1.1)
[2017-03-11 07:17] VITALS: BP 123/63; PULSE 66; TEMP 36.2; O2SAT 93
[2017-03-11] MEDS: DILTIAZEM HCL 120 MG CAPCR PO SCH (08:24)
[2017-03-11] MEDS: CITALOPRAM 40 MG TAB PO SCH (08:25)
[2017-03-11] MEDS: FERROUS GLUCONATE 324 MG TAB PO SCH (08:25)
[2017-03-11] MEDS: LACTOBACILLUS ACIDOPHILUS (FLORANEX) TAB PO SCH (08:25)
[2017-03-11] MEDS: POTASSIUM CHLORIDE 20 MEQ TABCR PO SCH (08:26)
[2017-03-11] MEDS: FUROSEMIDE 40 MG TAB PO SCH (08:26)
[2017-03-11] MEDS: MAGNESIUM OXIDE 400 MG TAB PO SCH (08:26)
[2017-03-11] MEDS: PANTOprazole SOD 40 MG TAB PO SCH (08:27)
[2017-03-11] MEDS: FINASTERIDE 5 MG TAB PO SCH (08:27)
[2017-03-11] MEDS: DICLOFENAC SOD 1% GEL 100 GM TUBE EXT SCH (12:00)
--- NOTE | 2017-03-11 12:01 | Clinical Documentation Query ---
CLINICAL DOCUMENTATION QUERY GI bleed due to Warfarin & Cipro therapy corrected with vitamin K and FFP was documented but this phrasing has fallen off the record. In your clinical opinion is this patient being managed for: (X ) GI bleed due to Warfarin & Cipro therapy corrected with vitamin K and FFP ( ) Not Agree Please clarify and document your clinical opinion in the progress notes and discharge summary. Terms such as "probable", "suspected", "likely", "questionable", "possible", or "still to be ruled out" are acceptable. IF IN AGREEMENT, YOU MUST DOCUMENT ABOVE DIAGNOSTIC STATEMENT IN DAILY PROGRESS NOTES AND DISCHARGE SUMMARY. This document is not part of the patient's record. Thank You, Alireza Gordillo, RN [phone]
[2017-03-11] MEDS ORDERED: PRT40 PO (12:56)
[2017-03-11] MEDS ORDERED: DRGTP25 TD (12:56)
[2017-03-11] MEDS ORDERED: WARF5TAB90 PO (12:59)
--- NOTE | 2017-03-11 13:04 | Discharge Instructions ---
Discharge Instructions Date of Service Mar 11, 2017. Admission Reason for Admission: Ams, Elevated Inr, Gi Bleed Discharge Discharge Diagnosis / Problem: Elevated INR, GI bleed Discharge Goals Goal(s): Decrease discomfort, Improve function, Increase independence, Improve disease control, Learn about illness, Diagnostic testing, Therapeutic intervention, Prevent Disease Progression Activity Recommendations Activity Limitations: resume your previous activity Exercise/Sports Limitations: as tolerated . Instructions / Follow-Up Instructions / Follow-Up During this visit to the hospital, Mr. Angulo was treated for high INR and an acute gastrointestinal blood loss. Given Vitamin K and FFP at [place] for INR of 7 - possible interaction between warfarin and cipro GI consulted - EGD - hiatal hernia, no source of bleeding - colonoscopy - diverticulosis in sigmoid colon, 5mm polyp in the ascending colon (removed - consistent with tubular adenoma on pathology) but no active sources of bleeding - Due to patient's age, no need for further 5 yr colonoscopy follow up Please note medication changes: Continue on Ferrous gluconate on discharge Decreased coumadin dose to 5 mg by mouth daily Protonix 40 mg tablet twice a day Patient discharged to [facility] Follow up with Dr Hakan Gee in 1-2 weeks Current Hospital Diet Patient's current hospital diet: AHA Diet (Heart Healthy) Discharge Diet Recommended Diet: AHA Diet (Heart Healthy) Procedures Procedures Performed: COLONOSCOPY, POLYPECTOMY Pending Studies Studies pending at discharge: no Medical Emergencies . Who to Call and When: Medical Emergencies: If at any time you feel your situation is an emergency, please call 911 immediately. . Non-Emergent Contact Non-Emergency issues call your: Primary Care Provider Call Non-Emergent contact if: you have a fever, your pain is worsening . . "Provider Documentation" section prepared by Andrews Lauren. . VTE Core Measure Inpt VTE Proph given/why not?: Treatment not indicated
[2017-03-11 13:17] VITALS: BP 123/63; PULSE 66; TEMP 36.2; O2SAT 93
[2017-03-11] MEDS ORDERED: FNTTP25 TD (16:16)
--- NOTE | 2017-03-11 16:20 | Discharge Summary ---
Discharge Summary Date of Service Mar 11, 2017. Discharge Summary Admission Date: Feb 23, 2017 at 23:12 Discharge Date: Mar 11, 2017 [facility] Disposition[facility] Principal Diagnosis: GI bleed Immunizations: Have You Had Influenza Vaccine: Yes Influenza Vaccine Date: Jan 11, 2015 History of Tetanus Vaccine?: Unknown History of Pneumococcal: Unknown History of Hepatitis B Vaccine: Unknown Medication Reconciliation New Medications: Fentanyl (Fentanyl) 25 Mcg Tdsy 25 MCG TD [id number], #10 PATCH Warfarin Sodium (Coumadin) 5 Mg Tab 1 TAB PO DAILY for 30 Days, #30 TAB 5 Refills Pantoprazole (Pantoprazole Sodium) 40 Mg Tab 40 MG PO BID, #60 TAB Continued Medications: Aspirin (Aspirin EC Low Dose) 81 Mg Ectab 81 MG PO DAILY Atorvastatin (Lipitor) 20 Mg Tab 20 MG PO HS, TAB Calcium Carbonate-Vitamin D (Oscal 500/200 D-3) 1 Tab Tab 1 TAB PO BID Citalopram (Citalopram Hydrobromide) 40 Mg Tab 40 MG PO DAILY, TAB Diltiazem Hcl Coated Beads (Cardizem Cd) 120 Mg Cap 120 MG PO DAILY, #30 CAP 5 Refills Docusate Sodium (Colace) 100 Mg Cap 100 MG PO HS, CAP Ferrous Sulfate (Ferrous Sulfate) 325 Mg Tab 325 MG PO DAILY Finasteride (Proscar) 5 Mg Tab 5 MG PO DAILY, TAB Furosemide (Lasix) 40 Mg Tab 40 MG PO QAM, TAB Lactobacillus Acidophilus (Lactinex) Tab 3 TAB PO TID for 10 Days, #90 TAB 0 Refills Magnesium Oxide (Mg Supplement (Magnesium Oxide) 400 Mg Tab 400 MG PO DAILY for 30 Days Nutritional Supplements (Boost) 1 Liq Liq 1 CAN PO HS Potassium Chloride Microencaps (Potassium Chloride Er) 20 Meq Tab 20 MEQ PO DAILY, TAB Discontinued Medications: Ertapenem Sodium (Invanz) 1 Gm Inj 1 GM IV DAILY for 10 Days, #10 DOSE 0 Refills start 02/07/17 Omeprazole (Prilosec) 40 Mg Cap 40 MG PO DAILY, CAP Warfarin Sodium (Coumadin) 7.5 Mg Tab 7.5 MG PO 4XWK, TAB /THURSDAY/THURSDAY/THURSDAY Warfarin Sodium (Coumadin) 7.5 Mg Tab 3.75 MG PO 3XWK, #30 TAB 0 Refills EVERY THURSDAY/THURSDAY/THURSDAY. Discharge Exam Review of Systems: Constitutional: No fever, No chills, No sweats, No weakness Eyes: No worsening of vision, No eye pain, No redness, No discharge Respiratory: No cough, No sputum, No wheezing, No shortness of breath Cardiovascular: No chest pain, No orthopnea, No PND, No edema Abdomen: No pain, No nausea, No vomiting, No diarrhea Musculoskeletal: No joint pain, No muscle pain, No swelling Genitourinary - Male: No hematuria, No dysuria, No urinary frequency, No urinary urgency Neurologic: No memory loss, No paralysis, No weakness, No numbness/tingling Psychiatric: No depression symptoms, No anhedonism, No anxiety, No insomnia Endocrine: No fatigue, No excessive thirst Integumentary: No rash, No itch Physical Exam: General Appearance: WD/WN, no apparent distress Eyes: normal inspection, PERRL, EOMI, sclerae normal Neck: supple, no adenopathy, thyroid normal, no JVD Respiratory/Chest: chest non-tender, lungs clear, normal breath sounds, no respiratory distress Cardiovascular: regular rate, rhythm, no edema, no gallop, no JVD Abdomen / GI: normal bowel sounds, non tender, soft, no organomegaly Extremities: normal inspection, no calf tenderness, normal capillary refill , no pedal edema Neurologic/Psychiatric: alert, normal mood/affect, normal reflexes, oriented x 3 Skin: normal color, warm/dry, no rash Lymphatic: no adenopathy Hospital Course 86 yo M admitted for acute GI bleed and supratherapeutic INR of 7.0 Supratherapeutic INR/acute GI blood loss secondary to likely warfarin therapy corrected with vit K/FFP - Given Vitamin K and FFP at [facility] for INR of 7 - possible interaction between warfarin and cipro - ?polypharmacy - Continue coumadin at 5 mg PO daily on DC - GI consulted - EGD - hiatal hernia, no source of bleeding - Colonoscopy - diverticulosis in sigmoid colon, 5mm polyp in the ascending colon (removed - consistent with tubular adenoma on pathology) but no active sources of bleeding - Due to patient's age, no need for further 5 yr colonoscopy follow up - Hgb currently stable - OD Ferrous gluconate 324, stop after 2 weeks and reassess Hypomagnesemia - Continue to supplement - Continue Mag Oxide PO 400mg daily for 4 weeks, then reassess - Handwritten Rx given for repeat lab check of magnesium around March 18 2017 Left trochanteric bursitis secondary to Fall - improved s/p steroid injection - Apply heat and voltaren gel to area - Steroid injection into left trochanteric bursa performed in house on 02/27/17 CKD stage 3 - At baseline H/o prostate ca/bladder ca - Stable BPH - Continue finasteride CAD/HTN - Continue aspirin 81, lipitor 20, lasix 40 Afib s/p Pacemaker - NSR, coumadin Chronic Pain - Continue fentanyl patch - Continue citalopram Code: DNR Total Time Spent: Greater than 30 minutes This includes examination of the patient, discharge planning, medication reconciliation, and communication with other providers. Discharge Instructions Please refer to the electronic Patient Visit Report (Discharge Instructions) for additional information. Additional Copies To Hakan Gee D.O.
[2017-03-13] MEDS ORDERED: FENTANYL PATCH REMOVE & WASTE SCH (14:00)
== END 2017-03-11 14:10 | DRG 813 ==
LOC: C.2T 23:12 → ENRESERV 02-27 17:37 → C.4E 02-27 19:34
PROVIDERS: ADMIT Family Medicine; ATTEND Hospitalist
PROC: 0DJ08ZZ Inspection of Upper Intestinal Tract, Via Natural or Artificial Opening Endoscopic (ICD-10-PCS; principal; 2017-02-25 15:06)
PROC: 0DBK8ZX Excision of Ascending Colon, Via Natural or Artificial Opening Endoscopic, Diagnostic (ICD-10-PCS; 2017-02-26)
PROC: 3E0U33Z Introduction of Anti-inflammatory into Joints, Percutaneous Approach (ICD-10-PCS; 2017-02-27)
DX: D68.32 Hemorrhagic disorder due to extrinsic circulating anticoagulants (principal); G93.40 Encephalopathy, unspecified; K92.1 Melena; D62 Acute posthemorrhagic anemia; T45.515A Adverse effect of anticoagulants, initial encounter; K57.30 Diverticulosis of large intestine without perforation or abscess without bleeding; M70.62 Trochanteric bursitis, left hip; I48.91 Unspecified atrial fibrillation; N40.0 Benign prostatic hyperplasia without lower urinary tract symptoms; M21.70 Unequal limb length (acquired), unspecified site; Z95.0 Presence of cardiac pacemaker; N18.3 Chronic kidney disease, stage 3 (moderate); R41.82 Altered mental status, unspecified; I12.9 Hypertensive chronic kidney disease with stage 1 through stage 4 chronic kidney disease, or unspecified chronic kidney disease; I25.10 Atherosclerotic heart disease of native coronary artery without angina pectoris; E83.42 Hypomagnesemia; R09.02 Hypoxemia; Z95.818 Presence of other cardiac implants and grafts; Z85.51 Personal history of malignant neoplasm of bladder; Z79.82 Long term (current) use of aspirin; M79.605 Pain in left leg; Z96.649 Presence of unspecified artificial hip joint; Z85.46 Personal history of malignant neoplasm of prostate; Z79.01 Long term (current) use of anticoagulants; W18.39XA Other fall on same level, initial encounter; Y92.019 Unspecified place in single-family (private) house as the place of occurrence of the external cause; Z66 Do not resuscitate